=== PATIENT | female | born 1930 | race Caucasian/White ===

== ENCOUNTER 2016-12-07 08:34 | Emergency (ER) | payer MEDICARE, BC ==
[2016-12-07] MEDS ORDERED: SODIUM CHLORIDE 0.9% 1,000 ML IV ONE (09:04)
[2016-12-07] MEDS ORDERED: cloNIDine HCL 0.2 MG TAB PO STA (09:08)
--- NOTE | 2016-12-07 09:48 | ED ---
Fall HPI - General Chief Complaint: Fall Stated Complaint: Fall Time Seen by Provider: 12/07/16 08:54 Source: patient, EMS, RN notes reviewed, old records reviewed Mode of arrival: ambulatory - History of Present Illness Initial Comments: 86-year-old female presents emergency Department chief complaint of chronic body pain after a fall yesterday. Patient reports that at 3 in the morning she fell. She does have history of dementia and is a poor historian of the reason why she fell. Patient reports that her son then picked her up and put her back into bed. She states that she woke up with severe pain. She denies any chest pain or shortness of breath this time. She states that she feels weak. She denies any specific place that is related to the acute injuries. She states that there is total body pain. She does have a history of stroke and chronic right-sided weakness. - Related Data Home Medications Medication Instructions Recorded Confirmed Donepezil [Aricept] 10 mg PO DAILY 12/11/13 12/07/16 Levothyroxine Sodium [Levoxyl] 100 mcg PO DAILY 12/11/13 12/07/16 Pravastatin Sodium [Pravachol] 10 mg PO HS 12/11/13 12/07/16 Cholecalciferol [Vitamin D3] 1,000 unit PO DAILY 04/07/14 12/07/16 amLODIPine [Norvasc] 5 mg PO DAILY 03/22/15 12/07/16 Hydrochlorothiazide [Hydrodiuril] 12.5 mg PO DAILY 12/07/16 12/07/16 Oxybutynin Chloride [Ditropan XL] 5 mg PO DAILY 12/07/16 12/07/16 Previous Rx's Medication Instructions Recorded Acetaminophen-Codeine 300-30mg 1 tab PO Q6H PRN #12 tablet 12/07/16 [Tylenol #3] Allergies Allergy/AdvReac Type Severity Reaction Status Date / Time No Known Allergies Allergy Verified 12/07/16 10:27 Review of Systems ROS Statement: Those systems with pertinent positive or pertinent negative responses have been documented in the HPI. ROS Other: All systems not noted in ROS Statement are negative. Past Medical History Past Medical History: CVA/TIA, Dementia, Deep Vein Thrombosis (DVT), Hyperlipidemia, Hypertension, Pneumonia, Skin Disorder, Thyroid Disorder Additional Past Medical History / Comment(s): "memory problems" SINCE STROKE AND RT SIDE AFFECTED.DVT RT LEG History of Any Multi-Drug Resistant Organisms: None Reported Past Surgical History: Hysterectomy Past Anesthesia/Blood Transfusion Reactions: No Reported Reaction Past Psychological History: No Psychological Hx Reported Smoking Status: Former smoker Past Alcohol Use History: None Reported Past Drug Use History: None Reported - Past Family History Father Family Medical History: Unable to Obtain Mother Family Medical History: Unable to Obtain General Exam - General Exam Comments Initial Comments: 86-year-old female. Patient has a history of dementia. Limitations: altered mental status General appearance: alert, in no apparent distress Head exam: Present: atraumatic, normocephalic, normal inspection Eye exam: Present: normal appearance, PERRL, EOMI. Absent: scleral icterus, conjunctival injection, periorbital swelling ENT exam: Present: normal exam, mucous membranes moist Neck exam: Present: normal inspection. Absent: tenderness, meningismus, lymphadenopathy Respiratory exam: Present: normal lung sounds bilaterally. Absent: respiratory distress, wheezes, rales, rhonchi, stridor Cardiovascular Exam: Present: regular rate, normal rhythm, normal heart sounds. Absent: systolic murmur, diastolic murmur, rubs, gallop, clicks GI/Abdominal exam: Present: soft, normal bowel sounds. Absent: distended, tenderness, guarding, rebound, rigid Extremities exam: Present: other (Patient has diffuse upper and lower extremity tenderness. No evidence of deformities.) Back exam: Present: normal inspection Neurological exam: Present: alert, oriented X3, CN II-XII intact Psychiatric exam: Present: normal affect, normal mood Skin exam: Present: warm, dry, intact, normal color. Absent: rash Course Vital Signs 12/07/16 12/07/16 12/07/16 08:37 09:40 10:00 Temperature 98.5 F Pulse Rate 74 75 Respiratory 18 18 18 Rate Blood Pressure 215/87 204/86 O2 Sat by Pulse 95 95 Oximetry 12/07/16 12/07/16 12/07/16 10:37 11:48 13:21 Temperature 97 F L 97.6 F 97.1 F L Pulse Rate 91 66 61 Respiratory 18 20 18 Rate Blood Pressure 146/67 155/70 152/67 O2 Sat by Pulse 99 99 99 Oximetry Medical Decision Making - Medical Decision Making 86-year-old female presents emergency Department chief complaint of chronic body pain after a fall yesterday. Patient reports that at 3 in the morning she fell. She does have history of dementia and is a poor historian of the reason why she fell. Patient reports that her son then picked her up and put her back into bed. She states that she woke up with severe pain. She denies any chest pain or shortness of breath this time. She states that she feels weak. She denies any specific place that is related to the acute injuries. Patient has diffuse point tenderness over the entire body. Patient's son reports that she is hypersensitive after her stroke. There is no evidence of acute deformities. X-rays of the area is with or most tender such as shoulder and hips are negative for any acute process. Patient's son does report that she did ambulate and go to the bathroom after the fall this morning. Patient son reports that he will manage her pain at home. This time patient's laboratory results are negative for any acute process. Patient will be discharged with pain medication instructed to follow-up with primary care provider. A lengthy discussion with the son in regards to increasing care such as having visiting nurses come to eat in her healthcare. - Lab Data Result diagrams: 12/07/16 09:35 12/07/16 09:35 Lab Results 12/07/16 12/07/16 12/07/16 Range/Units 09:35 09:35 09:35 WBC 8.6 (3.8-10.6) k/uL RBC 4.25 (3.80-5.40) m/uL Hgb 12.9 (11.4-16.0) gm/dL Hct 37.6 (34.0-46.0) % MCV 88.6 (80.0-100.0) fL MCH 30.4 (25.0-35.0) pg MCHC 34.3 (31.0-37.0) g/dL RDW 14.8 (11.5-15.5) % Plt Count 206 (150-450) k/uL Neutrophils % 75 % Lymphocytes % 16 % Monocytes % 5 % Eosinophils % 3 % Basophils % 1 % Neutrophils # 6.5 (1.3-7.7) k/uL Lymphocytes # 1.3 (1.0-4.8) k/uL Monocytes # 0.5 (0-1.0) k/uL Eosinophils # 0.2 (0-0.7) k/uL Basophils # 0.1 (0-0.2) k/uL PT 10.3 (9.0-12.0) sec INR 1.0 (<1.1) APTT 24.0 (22.0-30.0) sec Sodium 140 (137-145) mmol/L Potassium 4.1 (3.5-5.1) mmol/L Chloride 106 (98-107) mmol/L Carbon Dioxide 26 (22-30) mmol/L Anion Gap 8 mmol/L BUN 21 H (7-17) mg/dL Creatinine 0.84 (0.52-1.04) mg/dL Est GFR (MDRD) Af Amer >60 (>60 ml/min/1.73 sqM) Est GFR (MDRD) Non-Af >60 (>60 ml/min/1.73 sqM) Glucose 102 H (74-99) mg/dL Calcium 9.4 (8.4-10.2) mg/dL Magnesium 2.1 (1.6-2.3) mg/dL Total Bilirubin 0.7 (0.2-1.3) mg/dL AST 21 (14-36) U/L ALT 21 (9-52) U/L Alkaline Phosphatase 62 (38-126) U/L Total Creatine Kinase (30-135) U/L CK-MB (CK-2) (0.0-2.4) ng/mL CK-MB (CK-2) Rel Index Troponin I (0.000-0.034) ng/mL NT-Pro-B Natriuret Pep pg/mL Total Protein 7.1 (6.3-8.2) g/dL Albumin 4.1 (3.5-5.0) g/dL Urine Color Urine Appearance (Clear) Urine pH (5.0-8.0) Ur Specific [place] (1.001-1.035) Urine Protein (Negative) Urine Glucose (UA) (Negative) Urine Ketones (Negative) Urine Blood (Negative) Urine Nitrite (Negative) Urine Bilirubin (Negative) Urine Urobilinogen (<2.0) mg/dL Ur Leukocyte Esterase (Negative) Urine RBC (0-5) /hpf Urine WBC (0-5) /hpf Ur Squamous Epith Cells (0-4) /hpf Urine Bacteria (None) /hpf Urine Mucus (None) /hpf 12/07/16 12/07/16 12/07/16 Range/Units 09:35 09:35 09:35 WBC (3.8-10.6) k/uL RBC (3.80-5.40) m/uL Hgb (11.4-16.0) gm/dL Hct (34.0-46.0) % MCV (80.0-100.0) fL MCH (25.0-35.0) pg MCHC (31.0-37.0) g/dL RDW (11.5-15.5) % Plt Count (150-450) k/uL Neutrophils % % Lymphocytes % % Monocytes % % Eosinophils % % Basophils % % Neutrophils # (1.3-7.7) k/uL Lymphocytes # (1.0-4.8) k/uL Monocytes # (0-1.0) k/uL Eosinophils # (0-0.7) k/uL Basophils # (0-0.2) k/uL PT (9.0-12.0) sec INR (<1.1) APTT (22.0-30.0) sec Sodium (137-145) mmol/L Potassium (3.5-5.1) mmol/L Chloride (98-107) mmol/L Carbon Dioxide (22-30) mmol/L Anion Gap mmol/L BUN (7-17) mg/dL Creatinine (0.52-1.04) mg/dL Est GFR (MDRD) Af Amer (>60 ml/min/1.73 sqM) Est GFR (MDRD) Non-Af (>60 ml/min/1.73 sqM) Glucose (74-99) mg/dL Calcium (8.4-10.2) mg/dL Magnesium (1.6-2.3) mg/dL Total Bilirubin (0.2-1.3) mg/dL AST (14-36) U/L ALT (9-52) U/L Alkaline Phosphatase (38-126) U/L Total Creatine Kinase 183 H (30-135) U/L CK-MB (CK-2) 1.4 (0.0-2.4) ng/mL CK-MB (CK-2) Rel Index 0.8 Troponin I 0.021 (0.000-0.034) ng/mL NT-Pro-B Natriuret Pep 739 pg/mL Total Protein (6.3-8.2) g/dL Albumin (3.5-5.0) g/dL Urine Color Light Yellow Urine Appearance Cloudy H (Clear) Urine pH 7.5 (5.0-8.0) Ur Specific [place] 1.006 (1.001-1.035) Urine Protein Negative (Negative) Urine Glucose (UA) Negative (Negative) Urine Ketones Negative (Negative) Urine Blood Negative (Negative) Urine Nitrite Negative (Negative) Urine Bilirubin Negative (Negative) Urine Urobilinogen <2.0 (<2.0) mg/dL Ur Leukocyte Esterase Trace H (Negative) Urine RBC 1 (0-5) /hpf Urine WBC 6 H (0-5) /hpf Ur Squamous Epith Cells 1 (0-4) /hpf Urine Bacteria Rare H (None) /hpf Urine Mucus Rare H (None) /hpf - Radiology Data Radiology results: report reviewed EKG shows sinus rhythm with 3 which or atrial boxes of bigeminy. Non-ST melena. Ventricular rates is a 9 bpm. [place] interval 124 ms. QRS ration 80 ms. QT QTc is 416 445 ms. No evidence of ST elevation or T-wave inversion. No evidence of atrial articular limits. Disposition Clinical Impression: Fall, Chronic pain Disposition: HOME SELF-CARE Condition: Good Instructions: Fall Prevention for Older Adults (ED) Additional Instructions: patient has a follow-up with your primary care provider. Take Motrin or Tylenol for pain. Apply heating pad over the areas that are discomforting. Return the emergency department if any alarming signs or symptoms occur. Prescriptions: Acetaminophen-Codeine 300-30mg [Tylenol #3] 1 tab PO Q6H PRN #12 tablet PRN Reason: Pain Referrals: Moe Hedrick MD [Primary Care Provider] - 1-2 days Time of Disposition: 12:52
[2016-12-07 09:55] LABS: Basophils # (A) 0.1 k/uL (0-0.2); Basophils % (A) 1 %; CHCM 34.1; Eosinophils # (A) 0.2 k/uL (0-0.7); Eosinophils % (A) 3 %; HCT 37.6 % (34.0-46.0); HDW 2.31; HGB 12.9 gm/dL (11.4-16.0); Luc % (Auto) 1; Lymphocytes # (A) 1.3 k/uL (1.0-4.8); Lymphocytes % (A) 16 %; MCH 30.4 pg (25.0-35.0); MCHC 34.3 g/dL (31.0-37.0); MCV 88.6 fL (80.0-100.0); Mean Platelet Volume 6.9; Monocytes # (A) 0.5 k/uL (0-1.0); Monocytes % (A) 5 %; Neutrophils # (A) 6.5 k/uL (1.3-7.7); Neutrophils % (A) 75 %; RBC 4.25 m/uL (3.80-5.40); RDW 14.8 % (11.5-15.5); WBC 8.6 k/uL (3.8-10.6); WBC (Perox) 8.34
[2016-12-07 09:59] LABS: Appearance,Urine Cloudy (Clear); Bacteria,Urine Rare /hpf; Bilirubin,Urine Negative (Negative); Glucose,Urine (UA) Negative (Negative); Ketones,Urine Negative (Negative); Leukocyte Esterase,Urine Trace (Negative); Mucus,Urine Rare /hpf; Nitrite,Urine Negative (Negative); PH, Urine 7.5 (5.0-8.0); Particle Count 1744; Protein,Urine Negative (Negative); RBC,Urine 1 /hpf (0-5); Specific Gravity,Urine 1.006 (1.001-1.035); Squamous Epithelial Cell,Urine 1 /hpf (0-4); UA Billing (MACRO vs. MICRO) MICRO; Urobilinogen,Urine <2.0 mg/dL (<2.0); WBC,Urine 6 /hpf (0-5)
[2016-12-07 10:03] LABS: ALT 21 U/L (9-52); AST 21 U/L (14-36); Alkaline Phosphatase 62 U/L (38-126); Anion Gap 8 mmol/L; Blood Urea Nitrogen 21 mg/dL (7-17); Calcium 9.4 mg/dL (8.4-10.2); Carbon Dioxide 26 mmol/L (22-30); Chloride 106 mmol/L (98-107); Glucose 102 mg/dL (74-99); Magnesium 2.1 mg/dL (1.6-2.3); Non-African American GFR(MDRD) >60 (>60 ml/min/1.73 sqM); Potassium 4.1 mmol/L (3.5-5.1); Sodium 140 mmol/L (137-145); Total Bilirubin 0.7 mg/dL (0.2-1.3); Total Protein 7.1 g/dL (6.3-8.2)
[2016-12-07 10:06] LABS: Prothrombin Time 10.3 sec (9.0-12.0)
[2016-12-07 10:31] LABS: Creatine Kinase MB 1.4 ng/mL (0.0-2.4); Troponin I 0.021 ng/mL (0.000-0.034)
--- NOTE | 2016-12-07 10:37 | XR ---
EXAMINATION TYPE: XR chest 2V DATE OF EXAM: 12/07/2016 HISTORY: fall. REFERENCE: Previous study dated 05/09/2016. FINDINGS: The lungs are overinflated. The heart is enlarged. There is unfolding and ectasia of the th oracic aorta. The lungs are clear. Pleural spaces are clear. There is a stable wedge compression frac ture of what is believed to represent the T9 vertebral body. There is a intra-articular loose body in volving the right shoulder. IMPRESSION: 1. COPD 2. CARDIOMEGALY. 3. WEDGE COMPRESSION FRACTURE OF T9 WHICH IS STABLE. 4. OSSEOUS LOOSE BODY WITHIN THE RIGHT GLENOHUMERAL JOINT.
--- NOTE | 2016-12-07 10:38 | CT ---
EXAMINATION TYPE: CT brain wo con DATE OF EXAM: 12/07/2016 COMPARISON: NONE HISTORY: Fall CT DLP: 882.[address] of the brain was performed. The ventricles, basal cisterns and sulci overlying the cerebral convexities demonstrate moderate enla rgement. Remote insults of the left basal ganglia and left external capsule. There is no evidence for intracranial hemorrhage or sulcal effacement. There is decreased attenuation about the periventricular white matter and deep white matter of both c erebral hemispheres, compatible with chronic small vessel ischemia. Differential diagnosis does inclu de demyelination. 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 No midline shift. Osseous calvarium is intact. If symptoms persist consider MRI. IMPRESSION: 1. Age related atrophic and chronic small vessel ischemic change without acute intracranial process s een at this time.
--- NOTE | 2016-12-07 10:40 | XR ---
EXAMINATION TYPE: XR Hip Bilateral and AP pelvis , 6 VIEWS DATE OF EXAM ORDERED: 12/07/2016 HISTORY: Pain. COMPARISON: None. FINDINGS: There are varus deformities of the hips bilaterally worse on the left than the right. Ther e is mild degenerative change within the hip joints bilaterally. There is some sclerosis of the femor al heads. No definite collapse of the femoral heads are seen. No osseous lesion about the pelvis is i dentified. There are degenerative changes within the spine. IMPRESSION: 1. NO ACUTE OSSEOUS LESION. 2. VARUS DEFORMITIES OF BOTH HIPS GREATER ON THE LEFT THAN THE RIGHT. 3. MILD DEGENERATIVE CHANGE IN THE HIPS AND SPINE.
[2016-12-07 13:22] VITALS: BP 152/67; PULSE 61; RESP 18; TEMP 97.1
== END 2016-12-07 13:23 | disposition home or self-care (01) ==
LOC: EC 08:34
DX: G89.29 Other chronic pain (principal); R52 Pain, unspecified; I10 Essential (primary) hypertension; F03.90 Unspecified dementia, unspecified severity, without behavioral disturbance, psychotic disturbance, mood disturbance, and anxiety; E78.5 Hyperlipidemia, unspecified; E07.9 Disorder of thyroid, unspecified; Z87.891 Personal history of nicotine dependence; Z86.73 Personal history of transient ischemic attack (TIA), and cerebral infarction without residual deficits; Z86.718 Personal history of other venous thrombosis and embolism; Z79.899 Other long term (current) drug therapy; W06.XXXA Fall from bed, initial encounter; Y92.009 Unspecified place in unspecified non-institutional (private) residence as the place of occurrence of the external cause
CPT/HCPCS: 36415; 70450; 71020; 73521; 80053; 81001; 82550; 82553; 83735; 83880; 84484; 85025; 85610; 85730; 93005; 96360; 99285

== ENCOUNTER 2017-01-09 10:34 | Emergency (ER) | payer MEDICARE, BC ==
[2017-01-09 10:46] VITALS: TEMP 97.9
[2017-01-09] MEDS ORDERED: SODIUM CHLORIDE 0.9% 500 ML IV STA (10:58)
[2017-01-09] MEDS ORDERED: RX INFO: IV CONTRAST WAS GIVEN 1 EACH MISC MISCELLANE PRN (10:58)
[2017-01-09 11:54] LABS: Appearance,Urine Clear (Clear); Basophils # (A) 0.1 k/uL (0-0.2); Basophils % (A) 1 %; Bilirubin,Urine Negative (Negative); CH 29.7; CHCM 33.4; Eosinophils # (A) 0.2 k/uL (0-0.7); Eosinophils % (A) 3 %; Glucose,Urine (UA) Negative (Negative); HCT 36.6 % (34.0-46.0); HDW 2.42; HGB 12.4 gm/dL (11.4-16.0); Ketones,Urine Negative (Negative); Leukocyte Esterase,Urine Negative (Negative); Luc # (Auto) 0.13; Luc % (Auto) 2; Lymphocytes # (A) 1.1 k/uL (1.0-4.8); Lymphocytes % (A) 13 %; MCH 30.2 pg (25.0-35.0); MCHC 33.8 g/dL (31.0-37.0); MCV 89.4 fL (80.0-100.0); Mean Platelet Volume 7.2; Monocytes # (A) 0.4 k/uL (0-1.0); Monocytes % (A) 5 %; Neutrophils # (A) 6.7 k/uL (1.3-7.7); Neutrophils % (A) 77 %; Nitrite,Urine Negative (Negative); PH, Urine 7.5 (5.0-8.0); Protein,Urine Negative (Negative); RBC 4.09 m/uL (3.80-5.40); RDW 14.6 % (11.5-15.5); Specific Gravity,Urine 1.005 (1.001-1.035); UA Billing (MACRO vs. MICRO) CHEM; Urobilinogen,Urine <2.0 mg/dL (<2.0); WBC 8.6 k/uL (3.8-10.6); WBC (Perox) 9.19
[2017-01-09 11:57] VITALS: RESP 16
[2017-01-09 12:04] LABS: ALT 30 U/L (9-52); AST 24 U/L (14-36); Alkaline Phosphatase 56 U/L (38-126); Anion Gap 9 mmol/L; Blood Urea Nitrogen 17 mg/dL (7-17); Calcium 9.2 mg/dL (8.4-10.2); Carbon Dioxide 24 mmol/L (22-30); Chloride 107 mmol/L (98-107); Glucose 93 mg/dL (74-99); Non-African American GFR(MDRD) >60 (>60 ml/min/1.73 sqM); Sodium 140 mmol/L (137-145); Total Bilirubin 0.4 mg/dL (0.2-1.3); Total Protein 6.7 g/dL (6.3-8.2)
--- NOTE | 2017-01-09 12:51 | CT ---
EXAMINATION TYPE: CT abdomen pelvis w con DATE OF EXAM: 01/09/2017 COMPARISON: 05/09/2016 HISTORY: diarrhea CT DLP: 1178 mGycm Automated exposure control for dose reduction was used. CONTRAST: CT scan of the abdomen pelvis is performed with IV Contrast, patient injected with 100 mL of Omnipaqu e 300. FINDINGS- LUNG BASES-linear changes involving the lung bases suggestive of scar or atelectasis is a punctate 3 mm nodule within the right lower lobe. The heart is enlarged. LIVER/GB- No gross abnormality is appreciated. PANCREAS- No gross abnormality is seen. SPLEEN- No gross abnormality is seen. ADRENALS- No gross abnormality is seen. KIDNEYS/BLADDER- no hydronephrosis or nephrolithiasis. 2 small hypodensities within the kidney are to o small to characterize but stable from the previous exam and likely related to tiny cysts. BOWEL-there is a large hiatal hernia. LYMPH NODES- No greater than 1cm abdominal or pelvic lymph nodes areappreciated. OSSEOUS STRUCTURES-degenerative changes of the spine noted. Curvature noted. Arthropathy of the hips. Previous surgery involving the lumbar spine. OTHER- no free fluid. Mild wall thickening of the distal colon may represent a mild colitis. Irregul ar atherosclerotic changes of the aorta are noted with no evidence of definite aneurysm. The heart is enlarged. IMPRESSION- 1. Mild wall thickening distal colon correlate for mild colitis. No inflammatory changes. 2. Large hiatal hernia 3. Cardiomegaly
[2017-01-09 13:13] VITALS: BP 166/87; PULSE 76
--- NOTE | 2017-01-09 13:37 | ED ---
General Adult HPI - General Chief complaint: Nausea/Vomiting/Diarrhea Stated complaint: Diarrhea Time Seen by Provider: 01/09/17 10:36 Source: patient, family, EMS, RN notes reviewed Mode of arrival: EMS Limitations: no limitations - History of Present Illness Initial comments: 86-year-old female past medical history of hypertension, hypothyroidism, and dementia presents with 8 episodes of loose diarrhea over the past 12-24 hours. Patient denies any blood. States her stool is somewhat formed, not watery. No nausea vomiting. No abdominal pain. No chest pain or shortness of breath. No recent change in medications. No known exposure, no history of recent antibiotics. - Related Data Home Medications Medication Instructions Recorded Confirmed Donepezil [Aricept] 10 mg PO DAILY 12/11/13 01/09/17 Levothyroxine Sodium [Levoxyl] 100 mcg PO DAILY 12/11/13 01/09/17 Pravastatin Sodium [Pravachol] 10 mg PO HS 12/11/13 01/09/17 Cholecalciferol [Vitamin D3] 1,000 unit PO DAILY 04/07/14 01/09/17 amLODIPine [Norvasc] 5 mg PO DAILY 03/22/15 01/09/17 Hydrochlorothiazide [Hydrodiuril] 12.5 mg PO DAILY 12/07/16 01/09/17 Oxybutynin Chloride [Ditropan XL] 5 mg PO DAILY 12/07/16 01/09/17 Allergies Allergy/AdvReac Type Severity Reaction Status Date / Time No Known Allergies Allergy Verified 01/09/17 12:01 Review of Systems ROS Statement: Those systems with pertinent positive or pertinent negative responses have been documented in the HPI. ROS Other: All systems not noted in ROS Statement are negative. Past Medical History Past Medical History: CVA/TIA, Dementia, Deep Vein Thrombosis (DVT), Hyperlipidemia, Hypertension, Pneumonia, Skin Disorder, Thyroid Disorder Additional Past Medical History / Comment(s): "memory problems" SINCE STROKE AND RT SIDE AFFECTED.DVT RT LEG History of Any Multi-Drug Resistant Organisms: None Reported Past Surgical History: Hysterectomy Past Anesthesia/Blood Transfusion Reactions: No Reported Reaction Past Psychological History: No Psychological Hx Reported Smoking Status: Former smoker Past Alcohol Use History: None Reported Past Drug Use History: None Reported - Past Family History Father Family Medical History: Unable to Obtain Mother Family Medical History: Unable to Obtain General Exam Limitations: no limitations General appearance: alert, in no apparent distress Head exam: Present: atraumatic, normocephalic Eye exam: Present: normal appearance, PERRL ENT exam: Present: normal exam, mucous membranes moist Neck exam: Present: normal inspection. Absent: tenderness, meningismus Respiratory exam: Present: normal lung sounds bilaterally, respiratory distress Cardiovascular Exam: Present: regular rate, normal rhythm GI/Abdominal exam: Present: soft, tenderness (Mild generalized tenderness to palpation). Absent: distended, guarding, rebound Extremities exam: Present: normal inspection, normal capillary refill. Absent: pedal edema Neurological exam: Present: alert, oriented X3, CN II-XII intact. Absent: motor sensory deficit Psychiatric exam: Present: normal affect, normal mood Skin exam: Present: warm, dry. Absent: cyanosis, diaphoretic Course Vital Signs 01/09/17 01/09/17 01/09/17 10:43 11:52 13:12 Temperature 97.9 F Pulse Rate 70 74 76 Respiratory 18 16 16 Rate Blood Pressure 190/79 170/74 166/87 O2 Sat by Pulse 98 99 99 Oximetry - Reevaluation(s) Reevaluation #1: Patient has no episodes of diarrhea while in the emergency department. 01/09/17 14:13 Medical Decision Making - Medical Decision Making 86 yo female presenting with nonbloody diarrhea over the past 24 hours. Exam does reveal some generalized tenderness to palpation the abdomen. CT is obtained shows colitis. No focal infection, laboratory studies including CBC, CMP, and urinalysis is unremarkable. Patient has had no diarrhea while in the emergency department. He will be discharged home with instructions to follow up with primary care physician or return to the emergency department with worsening symptoms. Diagnosis: Diarrhea, colitis - Lab Data Result diagrams: 01/09/17 11:36 01/09/17 11:36 Lab Results 01/09/17 01/09/17 01/09/17 Range/Units 11:36 11:36 11:36 WBC 8.6 (3.8-10.6) k/uL RBC 4.09 (3.80-5.40) m/uL Hgb 12.4 (11.4-16.0) gm/dL Hct 36.6 (34.0-46.0) % MCV 89.4 (80.0-100.0) fL MCH 30.2 (25.0-35.0) pg MCHC 33.8 (31.0-37.0) g/dL RDW 14.6 (11.5-15.5) % Plt Count 210 (150-450) k/uL Neutrophils % 77 % Lymphocytes % 13 % Monocytes % 5 % Eosinophils % 3 % Basophils % 1 % Neutrophils # 6.7 (1.3-7.7) k/uL Lymphocytes # 1.1 (1.0-4.8) k/uL Monocytes # 0.4 (0-1.0) k/uL Eosinophils # 0.2 (0-0.7) k/uL Basophils # 0.1 (0-0.2) k/uL Sodium 140 (137-145) mmol/L Potassium 4.0 (3.5-5.1) mmol/L Chloride 107 (98-107) mmol/L Carbon Dioxide 24 (22-30) mmol/L Anion Gap 9 mmol/L BUN 17 (7-17) mg/dL Creatinine 0.83 (0.52-1.04) mg/dL Est GFR (MDRD) Af Amer >60 (>60 ml/min/1.73 sqM) Est GFR (MDRD) Non-Af >60 (>60 ml/min/1.73 sqM) Glucose 93 (74-99) mg/dL Calcium 9.2 (8.4-10.2) mg/dL Magnesium 2.0 (1.6-2.3) mg/dL Total Bilirubin 0.4 (0.2-1.3) mg/dL AST 24 (14-36) U/L ALT 30 (9-52) U/L Alkaline Phosphatase 56 (38-126) U/L Total Protein 6.7 (6.3-8.2) g/dL Albumin 3.9 (3.5-5.0) g/dL Lipase 129 (23-300) U/L Urine Color Light Yellow Urine Appearance Clear (Clear) Urine pH 7.5 (5.0-8.0) Ur Specific [place] 1.005 (1.001-1.035) Urine Protein Negative (Negative) Urine Glucose (UA) Negative (Negative) Urine Ketones Negative (Negative) Urine Blood Negative (Negative) Urine Nitrite Negative (Negative) Urine Bilirubin Negative (Negative) Urine Urobilinogen <2.0 (<2.0) mg/dL Ur Leukocyte Esterase Negative (Negative) Disposition Clinical Impression: Colitis Disposition: HOME SELF-CARE Condition: Good Instructions: Colitis (ED) Referrals: Moe Hedrick MD [Primary Care Provider] - 1-2 days Time of Disposition: 13:37
== END 2017-01-09 13:46 | disposition home or self-care (01) ==
LOC: EC 10:34
DX: K52.9 Noninfective gastroenteritis and colitis, unspecified (principal); E07.9 Disorder of thyroid, unspecified; I10 Essential (primary) hypertension; F03.90 Unspecified dementia, unspecified severity, without behavioral disturbance, psychotic disturbance, mood disturbance, and anxiety; E78.5 Hyperlipidemia, unspecified; Z87.891 Personal history of nicotine dependence; Z79.899 Other long term (current) drug therapy
CPT/HCPCS: 36415; 80053; 83690; 83735; 85025; 81003; 74177; 99285; 96360; Q9967

== ENCOUNTER 2017-04-05 12:17 | Observation (INO) | payer MEDICARE, BC ==
[2017-04-05] MEDS ORDERED: MORPHINE SULFATE 10 MG/ML SYRINGE IV STA (12:52)
[2017-04-05 13:02] LABS: Basophils % (A) 1 %; CH 29.5; CHCM 32.4; Eosinophils # (A) 0.2 k/uL (0-0.7); Eosinophils % (A) 2 %; HCT 37.6 % (34.0-46.0); HDW 2.27; Luc # (Auto) 0.08; Luc % (Auto) 1; Lymphocytes # (A) 1.1 k/uL (1.0-4.8); Lymphocytes % (A) 14 %; MCH 29.1 pg (25.0-35.0); MCHC 31.9 g/dL (31.0-37.0); MCV 91.4 fL (80.0-100.0); Mean Platelet Volume 7.2; Monocytes # (A) 0.3 k/uL (0-1.0); Monocytes % (A) 4 %; Neutrophils % (A) 78 %; RBC 4.11 m/uL (3.80-5.40); RDW 15.2 % (11.5-15.5); WBC 7.7 k/uL (3.8-10.6); WBC (Perox) 8.36
[2017-04-05 13:12] LABS: ALT 22 U/L (9-52); AST 20 U/L (14-36); Alkaline Phosphatase 63 U/L (38-126); Anion Gap 9 mmol/L; Blood Urea Nitrogen 21 mg/dL (7-17); Calcium 9.1 mg/dL (8.4-10.2); Carbon Dioxide 24 mmol/L (22-30); Chloride 107 mmol/L (98-107); Glucose 91 mg/dL (74-99); Magnesium 2.1 mg/dL (1.6-2.3); Non-African American GFR(MDRD) 59 (>60 ml/min/1.73 sqM); Phosphorus 3.2 mg/dL (2.5-4.5); Potassium 3.9 mmol/L (3.5-5.1); Sodium 140 mmol/L (137-145); Total Bilirubin 0.3 mg/dL (0.2-1.3); Total Protein 6.5 g/dL (6.3-8.2)
--- NOTE | 2017-04-05 13:13 | ED ---
General Adult HPI - General Chief complaint: Dizziness Stated complaint: dizziness Time Seen by Provider: 04/05/17 12:24 Source: patient, EMS, RN notes reviewed, old records reviewed Mode of arrival: EMS Limitations: no limitations - History of Present Illness Initial comments: This is a 86-year-old female to the ER for evaluation of weakness dizziness and shortness of breath and chest pain. Patient has a complex medical history including prior stroke, heart failure. Patient's lives alone and presents with her daughter today for evaluation per patient awoke today with dizziness feeling lightheaded and occasional room spinning when she woke this morning. Patient states she was able to ambulate without significant difficulty she did complain of shortness of breath. Patient states she is getting bilateral lower 70 swallowing. She has been taking all medications as prescribed. No fevers cough congestion, - Related Data Home Medications Medication Instructions Recorded Confirmed Donepezil [Aricept] 10 mg PO DAILY 12/11/13 04/05/17 Levothyroxine Sodium [Levoxyl] 100 mcg PO DAILY 12/11/13 04/05/17 Pravastatin Sodium [Pravachol] 10 mg PO HS 12/11/13 04/05/17 Cholecalciferol [Vitamin D3] 1,000 unit PO DAILY 04/07/14 04/05/17 amLODIPine [Norvasc] 5 mg PO DAILY 03/22/15 04/05/17 Oxybutynin Chloride [Ditropan XL] 5 mg PO DAILY 12/07/16 04/05/17 Allergies Allergy/AdvReac Type Severity Reaction Status Date / Time No Known Allergies Allergy Verified 04/05/17 13:03 Review of Systems ROS Statement: Those systems with pertinent positive or pertinent negative responses have been documented in the HPI. ROS Other: All systems not noted in ROS Statement are negative. Past Medical History Past Medical History: CVA/TIA, Dementia, Deep Vein Thrombosis (DVT), Hyperlipidemia, Hypertension, Pneumonia, Skin Disorder, Thyroid Disorder Additional Past Medical History / Comment(s): "memory problems" SINCE STROKE AND RT SIDE AFFECTED.DVT RT LEG History of Any Multi-Drug Resistant Organisms: None Reported Past Surgical History: Hysterectomy Past Anesthesia/Blood Transfusion Reactions: No Reported Reaction Past Psychological History: No Psychological Hx Reported Smoking Status: Former smoker Past Alcohol Use History: None Reported Past Drug Use History: None Reported - Past Family History Father Family Medical History: Unable to Obtain Mother Family Medical History: Unable to Obtain General Exam Limitations: no limitations General appearance: alert, in no apparent distress Head exam: Present: atraumatic, normocephalic, normal inspection Eye exam: Present: normal appearance, PERRL, EOMI. Absent: scleral icterus, conjunctival injection, periorbital swelling ENT exam: Present: normal exam, mucous membranes moist Neck exam: Present: normal inspection. Absent: tenderness, meningismus, lymphadenopathy Respiratory exam: Present: normal lung sounds bilaterally. Absent: respiratory distress, wheezes, rales, rhonchi, stridor Cardiovascular Exam: Present: regular rate, normal rhythm, normal heart sounds. Absent: systolic murmur, diastolic murmur, rubs, gallop, clicks GI/Abdominal exam: Present: soft, normal bowel sounds. Absent: distended, tenderness, guarding, rebound, rigid Extremities exam: Present: normal inspection, full ROM, normal capillary refill , other (Bilateral lower extremity edema). Absent: tenderness, pedal edema, joint swelling, calf tenderness Back exam: Present: normal inspection Neurological exam: Present: alert, oriented X3, CN II-XII intact Psychiatric exam: Present: normal affect, normal mood Skin exam: Present: warm, dry, intact, normal color. Absent: rash Course Vital Signs 04/05/17 04/05/17 12:18 13:46 Temperature 98.2 F Pulse Rate 62 79 Respiratory 18 19 Rate Blood Pressure 183/86 190/82 O2 Sat by Pulse 97 100 Oximetry - Reevaluation(s) Reevaluation #1: 04/05/17 14:15 Patient continues to feel weak with pain. Chest pain or shortness of breath, patient also complains of dizziness Medical Decision Making - Medical Decision Making 86-year-old ER for evaluation regarding shortness of breath. Severe shortness of breath especially with exertion and chest pain. Patient will be admitted for cardiac observation - Lab Data Result diagrams: 04/05/17 12:35 04/05/17 12:35 Lab Results 04/05/17 04/05/17 04/05/17 Range/Units 12:35 12:35 12:35 WBC 7.7 (3.8-10.6) k/uL RBC 4.11 (3.80-5.40) m/uL Hgb 12.0 (11.4-16.0) gm/dL Hct 37.6 (34.0-46.0) % MCV 91.4 (80.0-100.0) fL MCH 29.1 (25.0-35.0) pg MCHC 31.9 (31.0-37.0) g/dL RDW 15.2 (11.5-15.5) % Plt Count 198 (150-450) k/uL Neutrophils % 78 % Lymphocytes % 14 % Monocytes % 4 % Eosinophils % 2 % Basophils % 1 % Neutrophils # 6.0 (1.3-7.7) k/uL Lymphocytes # 1.1 (1.0-4.8) k/uL Monocytes # 0.3 (0-1.0) k/uL Eosinophils # 0.2 (0-0.7) k/uL Basophils # 0.0 (0-0.2) k/uL PT (9.0-12.0) sec INR (<1.2) APTT (22.0-30.0) sec Sodium 140 (137-145) mmol/L Potassium 3.9 (3.5-5.1) mmol/L Chloride 107 (98-107) mmol/L Carbon Dioxide 24 (22-30) mmol/L Anion Gap 9 mmol/L BUN 21 H (7-17) mg/dL Creatinine 0.90 (0.52-1.04) mg/dL Est GFR (MDRD) Af Amer >60 (>60 ml/min/1.73 sqM) Est GFR (MDRD) Non-Af 59 (>60 ml/min/1.73 sqM) Glucose 91 (74-99) mg/dL Calcium 9.1 (8.4-10.2) mg/dL Phosphorus 3.2 (2.5-4.5) mg/dL Magnesium 2.1 (1.6-2.3) mg/dL Total Bilirubin 0.3 (0.2-1.3) mg/dL AST 20 (14-36) U/L ALT 22 (9-52) U/L Alkaline Phosphatase 63 (38-126) U/L Total Creatine Kinase 117 (30-135) U/L CK-MB (CK-2) 0.9 (0.0-2.4) ng/mL CK-MB (CK-2) Rel Index 0.8 Troponin I <0.012 (0.000-0.034) ng/mL NT-Pro-B Natriuret Pep pg/mL Total Protein 6.5 (6.3-8.2) g/dL Albumin 3.7 (3.5-5.0) g/dL Urine Color Urine Appearance (Clear) Urine pH (5.0-8.0) Ur Specific [place] (1.001-1.035) Urine Protein (Negative) Urine Glucose (UA) (Negative) Urine Ketones (Negative) Urine Blood (Negative) Urine Nitrite (Negative) Urine Bilirubin (Negative) Urine Urobilinogen (<2.0) mg/dL Ur Leukocyte Esterase (Negative) 04/05/17 04/05/17 04/05/17 Range/Units 12:35 12:35 13:05 WBC (3.8-10.6) k/uL RBC (3.80-5.40) m/uL Hgb (11.4-16.0) gm/dL Hct (34.0-46.0) % MCV (80.0-100.0) fL MCH (25.0-35.0) pg MCHC (31.0-37.0) g/dL RDW (11.5-15.5) % Plt Count (150-450) k/uL Neutrophils % % Lymphocytes % % Monocytes % % Eosinophils % % Basophils % % Neutrophils # (1.3-7.7) k/uL Lymphocytes # (1.0-4.8) k/uL Monocytes # (0-1.0) k/uL Eosinophils # (0-0.7) k/uL Basophils # (0-0.2) k/uL PT 10.6 (9.0-12.0) sec INR 1.0 (<1.2) APTT 23.0 (22.0-30.0) sec Sodium (137-145) mmol/L Potassium (3.5-5.1) mmol/L Chloride (98-107) mmol/L Carbon Dioxide (22-30) mmol/L Anion Gap mmol/L BUN (7-17) mg/dL Creatinine (0.52-1.04) mg/dL Est GFR (MDRD) Af Amer (>60 ml/min/1.73 sqM) Est GFR (MDRD) Non-Af (>60 ml/min/1.73 sqM) Glucose (74-99) mg/dL Calcium (8.4-10.2) mg/dL Phosphorus (2.5-4.5) mg/dL Magnesium (1.6-2.3) mg/dL Total Bilirubin (0.2-1.3) mg/dL AST (14-36) U/L ALT (9-52) U/L Alkaline Phosphatase (38-126) U/L Total Creatine Kinase (30-135) U/L CK-MB (CK-2) (0.0-2.4) ng/mL CK-MB (CK-2) Rel Index Troponin I (0.000-0.034) ng/mL NT-Pro-B Natriuret Pep 683 pg/mL Total Protein (6.3-8.2) g/dL Albumin (3.5-5.0) g/dL Urine Color Light Yellow Urine Appearance Clear (Clear) Urine pH 7.0 (5.0-8.0) Ur Specific [place] 1.011 (1.001-1.035) Urine Protein Negative (Negative) Urine Glucose (UA) Negative (Negative) Urine Ketones 1+ H (Negative) Urine Blood Negative (Negative) Urine Nitrite Negative (Negative) Urine Bilirubin Negative (Negative) Urine Urobilinogen <2.0 (<2.0) mg/dL Ur Leukocyte Esterase Negative (Negative) - Radiology Data Radiology results: report reviewed (Chest x-rays negative for acute disease, CT brain negative for acute disease, CTA chest is pending), image reviewed Disposition Clinical Impression: CHF (congestive heart failure), Chest pain Disposition: ADMITTED IP TO THIS HOSP Condition: Fair Referrals: Moe Hedrick MD [Primary Care Provider] - 1-2 days
[2017-04-05 13:17] LABS: Prothrombin Time 10.6 sec (9.0-12.0)
[2017-04-05 13:21] LABS: Creatine Kinase 117 U/L (30-135)
--- NOTE | 2017-04-05 13:30 | CT ---
EXAMINATION TYPE: CT brain wo con DATE OF EXAM: 04/05/2017 COMPARISON: Prior CT brain 12/07/2016 HISTORY: Dizziness CT DLP: 898.8 mGycm Automated exposure control for dose reduction was used. Helical imaging through the brain FINDINGS: Large calcified mass extending from the inner table at the convexity on the right is again noted josh ures approximately 2.3 cm similar to prior exam. There is cortical atrophy. White matter demyelinatio n is again seen. Ventricles are again noted to be asymmetric, there is likely ex vacuo phenomenon due to prior infarct in the internal capsule, periventricular white matter on the left. There is no hemo rrhage. Cerebral vascular calcifications are again seen. IMPRESSION: FINDINGS ARE SIMILAR TO PRIOR EXAM, NO DEFINITE ACUTE ABNORMALITY. MRI MAY BE OF BENEFIT. PROBABLE ME NINGIOMA DESCRIBED. CHRONIC SMALL VESSEL ISCHEMIA, AGE RELATED ATROPHY.
[2017-04-05 13:31] LABS: Appearance,Urine Clear (Clear); Bilirubin,Urine Negative (Negative); Glucose,Urine (UA) Negative (Negative); Ketones,Urine 1+ (Negative); Leukocyte Esterase,Urine Negative (Negative); Nitrite,Urine Negative (Negative); Protein,Urine Negative (Negative); Specific Gravity,Urine 1.011 (1.001-1.035); UA Billing (MACRO vs. MICRO) CHEM; Urobilinogen,Urine <2.0 mg/dL (<2.0)
[2017-04-05 13:33] LABS: Creatine Kinase MB 0.9 ng/mL (0.0-2.4); Troponin I <0.012 ng/mL (0.000-0.034)
--- NOTE | 2017-04-05 13:40 | XR ---
EXAMINATION TYPE: XR chest 2V DATE OF EXAM: 04/05/2017 COMPARISON: Chest x-ray December 07, 2016. HISTORY: Assess. TECHNIQUE: Frontal and lateral views of the chest are obtained. FINDINGS: There is chronic emphysematous change without suspicious focal air space opacity, pleural effusion, or pneumothorax seen. The cardiac silhouette size remains enlarged with atherosclerotic th oracic aorta redemonstrated. Osseous structures are demineralized. There is moderate to severe compre ssion type fracture deformity at roughly T10 level redemonstrated. Osseous loose bodies right glenohu meral joint are redemonstrated. IMPRESSION: Chronic changes and cardiomegaly without acute pulmonary process. No significant change from prior.
[2017-04-05] MEDS ORDERED: ASPIRIN 81 MG PO STA (14:13)
[2017-04-05] MEDS ORDERED: NITROGLYCERIN SL TABS 0.4 MG TAB SUBLINGUAL PRN (14:13)
[2017-04-05] MEDS ORDERED: RX INFO: IV CONTRAST WAS GIVEN 1 EACH MISC MISCELLANE PRN (14:13)
[2017-04-05] MEDS ORDERED: MORPHINE SULFATE 10 MG/ML SYRINGE IV PRN (14:13)
[2017-04-05] MEDS ORDERED: FUROSEMIDE 10 MG/ML 4 ML VIAL IV STA (14:14)
--- NOTE | 2017-04-05 15:14 | CT ---
EXAMINATION TYPE: CT angio chest DATE OF EXAM: 04/05/2017 COMPARISON: Chest x-ray from earlier today and older studies. HISTORY: Dizziness, new onset A-fib. CT DLP: 219.50 mGycm. Automated Exposure Control for Dose Reduction was Utilized. CONTRAST: CTA scan of the thorax is performed with IV Contrast, patient injected with 67 mL of Visipaque 320, p ulmonary embolism protocol. MIP Images are created on CT scanner and reviewed. FINDINGS: LUNGS: Mild underlying emphysematous change is felt present. There is mild bibasilar linear scarring and/or atelectasis. There is no suspicious focal consolidation or groundglass opacity. There is no si gnificant pleural effusion or pneumothorax seen bilaterally. No concerning parenchymal nodule or mass is identified. MEDIASTINUM: There is satisfactory enhancement of the pulmonary artery and its branches, there is no CT evidence for pulmonary embolism. There are no greater than 1 cm hilar or mediastinal lymph nodes . There is tiny pericardial effusion inferiorly. Mild cardiomegaly is present. Left atrium is not jordan piciously enlarged. Main pulmonary artery measures 2.3 cm in diameter. Adjacent ascending aorta measu res 3.0 cm diameter on axial image 69. There is mild to moderate calcified plaque in descending thora cic aorta with slightly more prominent plaque in the abdominal aorta extending into branch vessels. T here is densely calcified plaque at bilateral renal artery origins noted. There is fairly moderate si ze hiatal hernia seen. This is not significantly changed in size from January 09, [address] Th ere is severe three-vessel coronary artery calcification which is noted marker for coronary artery di sease. OTHER: High dense material in bowel loops could reflect ingested contrast [facility] There is dense fibroglandular tissue noted in both breasts. Osseous structures are dem ineralized. There is advanced compression type fracture at T10 level redemonstrated. This has been pr esent on older radiographs. Advanced degenerative change of bilateral lateral glenohumeral joints is noted. IMPRESSION: No CT evidence for pulmonary embolism. No suspicious acute pulmonary process. Severe thre e-vessel coronary artery calcification noted. Other findings as noted above.
[2017-04-05] MEDS ORDERED: LABETALOL 5 MG/ML VIAL MDV IVP STA (15:20)
[2017-04-05 19:30] LABS: Creatine Kinase 117 U/L (30-135)
[2017-04-05 19:43] LABS: Creatine Kinase MB 1.1 ng/mL (0.0-2.4); Troponin I <0.012 ng/mL (0.000-0.034)
[2017-04-05] MEDS: PRAVASTATIN SODIUM 20 MG TAB PO SCH (20:01)
[2017-04-05] MEDS ORDERED: ONDANSETRON 4 MG/2 ML VIAL IVP PRN (22:16)
[2017-04-06 01:28] LABS: Creatine Kinase 120 U/L (30-135)
[2017-04-06 01:41] LABS: Creatine Kinase MB 1.1 ng/mL (0.0-2.4); Troponin I <0.012 ng/mL (0.000-0.034)
[2017-04-06] MEDS: LEVOTHYROXINE 100 MCG TAB PO SCH (05:45)
[2017-04-06 06:50] LABS: Cholesterol 178 mg/dL (<200); HDL Cholesterol 81 mg/dL (40-60)
[2017-04-06] MEDS ORDERED: amLODIPine 5 MG TAB PO SCH (09:00)
[2017-04-06] MEDS ORDERED: ASPIRIN 325 MG TAB PO SCH (09:00)
[2017-04-06] MEDS ORDERED: LISINOPRIL 5 MG TAB PO SCH (09:45)
[2017-04-06] MEDS: OXYBUTYNIN 10 MG TAB.ER.24 PO SCH (10:21)
[2017-04-06] MEDS: DONEPEZIL 10 MG TAB PO SCH (10:21)
[2017-04-06] MEDS: CHOLECALCIFEROL 1,000 UNIT TAB PO SCH (10:21)
[2017-04-06] MEDS: HYDROCHLOROTHIAZIDE 12.5 MG CAP PO SCH (10:21)
[2017-04-06] MEDS: ACETAMINOPHEN TAB 325 MG TAB PO PRN ×2 (11:17→20:07)
--- NOTE | 2017-04-06 11:41 | CONS ---
CONSULTATION Mrs. Grace is an 86-year-old female who presented to the emergency room with symptoms of dizziness. According to the ER note, the patient had some chest discomfort, although with asking the patient multiple times, she denies any chest discomfort. She denies any prior cardiac history. Her main concern is the dizziness and fatigue. Patient had a prior history of stroke about 7 years ago. She was feeling lightheaded with no associated palpitation and no chest discomfort. She uses her walker with ambulation, but she has symptoms of fatigue. She has no clear PND, orthopnea, or peripheral edema. She has no documented history of ischemic heart disease. Her CT scan that was done in the emergency room yesterday showed calcification of the coronary arteries. Her coronary risk factors are positive for a history of hypertension and hyperlipidemia. She is a nonsmoker, nondiabetic. MEDICATIONS: Include Norvasc 5 mg daily, Pravastatin 10 mg daily, Ditropan, Levoxyl, HydroDIURIL 12 .5 mg daily, Aricept and vitamin D. REVIEW OF SYSTEMS: RESPIRATORY SYSTEM: She has dyspnea on exertion, but no recent wheezing or cough. GI SYSTEM: No recent GI bleed. No peptic ulcer disease. SYSTEM: No dysuria or hematuria. NERVOUS SYSTEM: She has a history of stroke as noted. PHYSICAL EXAMINATION: She is an 86-year-old female in no apparent distress. The blood pressure in the 140s up to the 170s with a heart rate in the 60s. HEAD: Normocephalic. EYES: Sclerae nonicteric. NECK: Good upstroke. No bruit. LUNGS: Clear to auscultation. HEART: Regular rate and rhythm, S1, S2. No S3 with systolic murmur heard at the base ejection type, no diastolic murmur. No rub. ABDOMEN: Soft, nontender. Positive bowel sounds. No organomegaly. EXTREMITIES: Her extremities are tender, but no evidence of edema. LAB DATA: EKG with sinus arrhythmia with nonspecific ST-T wave changes. On the monitor, she had evidence of persistent sinus arrhythmia. Her troponins are less than 0.012 for 3 samples, cholesterol 178, LDL of 83, BUN and creatinine 21 and 0.9. Potassium 3.9, hemoglobin of 12. Her chest CT angiogram revealed no evidence of pulmonary embolism. There was evidence of calcification of the coronary arteries. Her chest x-ray showed no acute infiltrate. IMPRESSION: 1. Symptoms of dizziness with no clear evidence of tachy or bradyarrhythmia. Patient has a evidence of sinus arrhythmia, but do not appear to be symptomatic. 2. Hypertension. 3. Symptoms of fatigue. 4. History of hyperlipidemia. 5. History of cerebrovascular accident. RECOMMENDATION: From the cardiac standpoint, I will obtain an echocardiogram with Doppler. I do not see any evidence of active ischemic heart disease at this time. Patient has calcification of coronary arteries, but I do not believe that there is an active ischemia and it would maximize her medical therapy. Will follow her blood pressure. She will continue on her present medical regimen because of the elevation that was noted since her admission. I will add an SB inhibitor and follow her blood pressure very closely and depending on the trend, further recommendation will be made. Thank you for this consult. Will follow with you. MURRAY / ROSITA: [id number] /
--- NOTE | 2017-04-06 11:57 | ECHOF ---
Referral Reason:htn MEASUREMENTS -------- HEIGHT: 160.0 cm WEIGHT: 66.2 kg BP: 177/91 RVIDd: 2.9 cm (< 3.3) IVSd: 1.2 cm (0.6 - 1.1) LVIDd: 4.3 cm (3.9 - 5.3) LVPWd: 1.2 cm (0.6 - 1.1) IVSs: 1.7 cm LVIDs: 2.8 cm LVPWs: 1.7 cm LAESV Index (A-L): 38.53 ml/m Ao Diam: 3.0 cm (2.0 - 3.7) AV Cusp: 0.6 cm (1.5 - 2.6) LA Diam: 4.2 cm (2.7 - 3.8) MV EXCURSION: 13.341 mm (> 18.000) MV EF SLOPE: 73 mm/s (70 - 150) EPSS: 0.5 cm MV E Stalin: 0.94 m/s MV DecT: 254 ms MV A Stalin: 1.24 m/s MV E/A Ratio: 0.76 AV maxP.55 mmHg AV meanP.94 mmHg RAP: 5.00 mmHg RVSP: 33.76 mmHg FINDINGS -------- Sinus rhythm. This was a technically adequate study. The left ventricular size is normal. There is mild concentric left ventricular hypertrophy. Overa ll left ventricular systolic function is normal with, an EF between 55 - 60 %. The right ventricle is normal in size and function. LA is moderately dilated 34-39 ml/m2 The right atrium is normal in size. Aortic valve is trileaflet and is moderately thickened. Mild aortic stenosis with peak/mean pressur e gradient of 19.55mmHg / 10.94mmHg , the aortic valve area by continuity equation is 1.4cm. Moderate mitral annular calcification present. Mild mitral regurgitation is present. Mild tricuspid regurgitation present. The right ventricular systolic pressure, as measured by Doppl er, is 33.76mmHg. The pulmonic valve was not well visualized. There is no pulmonic regurgitation present. The aortic root size is normal. Normal inferior vena cava with normal inspiratory collapse consistent with estimated right atrial pre ssure of 5 mmHg. There is no pericardial effusion. CONCLUSIONS -------- 1. Sinus rhythm. 2. This was a technically adequate study. 3. There is mild concentric left ventricular hypertrophy. 4. Overall left ventricular systolic function is normal with, an EF between 55 - 60 %. 5. LA is moderately dilated 34-39 ml/m2 6. Aortic valve is trileaflet and is moderately thickened. 7. Mild aortic stenosis with peak/mean pressure gradient of 19.55mmHg / 10.94mmHg , the aortic valve area by continuity equation is 1.4cm. 8. Moderate mitral annular calcification present. 9. Mild mitral regurgitation is present. 10. Mild tricuspid regurgitation present. 11. The right ventricular systolic pressure, as measured by Doppler, is 33.76mmHg. 12. The pulmonic valve was not well visualized. 13. There is no pulmonic regurgitation present. 14. The aortic root size is normal. 15. There is no pericardial effusion. SUPPORT SERVICES SPECIALIST: Tarun Abbasi RDCS
--- NOTE | 2017-04-06 16:09 | P.HPIM ---
History of Present Illness 86-year-old female was admitted for chest pain although she denied any chest pain patient was comparing of dizziness which is lightheadedness denied any fever, chills, nausea vomiting patient was a valid by cardiology no further determinations from them patient blood pressure was elevated because of which patient was started on lisinopril which I'm discontinuing because of her continued dizziness patient blood pressure is normal but low normal systolic now patient blood pressure was elevated yesterday patient the head any EKG and echocardiogram did not show any significant abnormality patient has generalized weakness because of which we're opting PT and OT evaluation before her discharge patient doesn't have any signs or symptoms of sepsis no significant abnormality and national sales associate, 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 Review of Systems REVIEW OF SYSTEMS: CONSTITUTIONAL: No fever, no malaise, no fatigue. HEENT: No recent visual problems or hearing problems. Denied any sore throat. CARDIOVASCULAR: No chest pain, orthopnea, PND, no palpitations, no syncope. PULMONARY: No shortness of breath, no cough, no hemoptysis. GASTROINTESTINAL: No diarrhea, no nausea, no vomiting, no abdominal pain. Normoactive bowel sounds. NEUROLOGICAL: No headaches, no weakness, no numbness. HEMATOLOGICAL: Denies any bleeding or petechiae. GENITOURINARY: Denies any burning micturition, frequency, or urgency. MUSCULOSKELETAL/RHEUMATOLOGICAL: Denies any joint pain, swelling, or any muscle pain. ENDOCRINE: Denies any polyuria or polydipsia. The rest of the 14-point review of systems is negative. Past Medical History Past Medical History: CVA/TIA, Dementia, Deep Vein Thrombosis (DVT), Hyperlipidemia, Hypertension, Memory Impairment, Pneumonia, Skin Disorder, Thyroid Disorder Additional Past Medical History / Comment(s): "memory problems" SINCE STROKE AND RT SIDE AFFECTED.DVT RT LEG History of Any Multi-Drug Resistant Organisms: None Reported Past Surgical History: Appendectomy, Hysterectomy Additional Past Surgical History / Comment(s): colonosocpy Past Anesthesia/Blood Transfusion Reactions: No Reported Reaction Smoking Status: Former smoker - Past Family History Father History Unknown: Yes Family Medical History: Unable to Obtain Mother History Unknown: Yes Family Medical History: Unable to Obtain Medications and Allergies Home Medications Medication Instructions Recorded Confirmed Type Donepezil [Aricept] 10 mg PO DAILY 12/11/13 04/05/17 History Levothyroxine Sodium [Levoxyl] 100 mcg PO DAILY 12/11/13 04/05/17 History Pravastatin Sodium [Pravachol] 10 mg PO HS 12/11/13 04/05/17 History Cholecalciferol [Vitamin D3] 1,000 unit PO DAILY 04/07/14 04/05/17 History amLODIPine [Norvasc] 5 mg PO DAILY 03/22/15 04/05/17 History Hydrochlorothiazide [Hydrodiuril] 12.5 mg PO DAILY 04/05/17 04/05/17 History Oxybutynin ER [Ditropan Xl] 10 mg PO DAILY 04/05/17 04/05/17 History Allergies Allergy/AdvReac Type Severity Reaction Status Date / Time colesevelam [From WelChol] Allergy Unknown Verified 04/05/17 14:26 Physical Exam Vitals: Vital Signs Temp Pulse Resp BP Pulse Ox 04/06/17 12:00 98.0 F 67 18 115/60 95 04/06/17 08:00 97.5 F L 53 L 18 177/91 94 L 04/06/17 04:00 97.7 F 67 18 143/68 96 04/06/17 00:00 18 04/05/17 23:42 97.9 F 66 18 150/66 99 04/05/17 20:00 18 04/05/17 19:37 97.4 F L 58 L 18 154/70 95 04/05/17 17:49 97.5 F L 66 16 171/76 97 04/05/17 16:12 98.0 F Intake and Output 04/06/17 04/06/17 04/06/17 06:59 14:59 22:59 Intake Total 360 Balance 360 Intake: Oral 360 Other: Voiding Method Toilet # Voids 1 1 PHYSICAL EXAMINATION: GENERAL: The patient is alert and oriented x3, not in any acute distress. Well developed, well nourished. HEENT: Pupils are round and equally reacting to light. EOMI. No scleral icterus. No conjunctival pallor. Normocephalic, atraumatic. No pharyngeal erythema. No thyromegaly. CARDIOVASCULAR: S1 and S2 present. No murmurs, rubs, or gallops. PULMONARY: Chest is clear to auscultation, no wheezing or crackles. ABDOMEN: Soft, nontender, nondistended, normoactive bowel sounds. No palpable organomegaly. MUSCULOSKELETAL: No joint swelling or deformity. EXTREMITIES: No cyanosis, clubbing, or pedal edema. NEUROLOGICAL: Gross neurological examination did not reveal any focal deficits. SKIN: No rashes. Results CBC & Chem 7: 04/05/17 12:35 04/05/17 12:35 Labs: Abnormal Lab Results - Last 24 Hours (Table) 04/06/17 Range/Units 06:26 HDL Cholesterol 81 H (40-60) mg/dL Microbiology - Last 24 Hours (Table) 04/05/17 13:05 Urine Culture - Preliminary Urine,Voided Thrombosis Risk Factor Assmnt - Choose All That Apply Any of the Below Risk Factors Present?: Yes Each Factor Represents 1 point: Obesity (BMI >25) Other Risk Factors: Yes Each Risk Factor Represents 3 Points: Age 75 years or older, History of DVT/PE Other congenital or acquired thrombophilia - If yes, enter type in comment: No Thrombosis Risk Factor Assessment Total Risk Factor Score: 7 Thrombosis Risk Factor Assessment Level: High Risk Assessment and Plan Plan: #1 lightheadedness unsure of the exact etiology, patient does not have any positive orthostatic vitals is not in renal dysfunction or dehydrated, patient doesn't have any sepsis all the workup is negative. Will monitor 1 more day discontinue lisinopril, and amlodipine which was started today morning. No abnormality on telemetry. #2 generalized weakness PT and OT evaluation for deconditioning. #3dementia appears to be moderate continue with her home medications. #4 history of DVT in the past #5 hypertension #6 hypothyroidism #7 CVA TIA in the past For above-mentioned chronic medical problems patient will continued on home medications.
[2017-04-06] MEDS: PRAVASTATIN SODIUM 20 MG TAB PO SCH (20:07)
[2017-04-07] MEDS: LEVOTHYROXINE 100 MCG TAB PO SCH (05:57)
[2017-04-07] MEDS ORDERED: ASPIRIN 81 MG PO SCH (09:00)
[2017-04-07] MEDS: CHOLECALCIFEROL 1,000 UNIT TAB PO SCH (09:46)
[2017-04-07] MEDS: HYDROCHLOROTHIAZIDE 12.5 MG CAP PO SCH (09:46)
[2017-04-07] MEDS: DONEPEZIL 10 MG TAB PO SCH (09:46)
[2017-04-07] MEDS: OXYBUTYNIN 10 MG TAB.ER.24 PO SCH (09:47)
[2017-04-07 12:06] VITALS: BP 114/64; PULSE 66; RESP 14; TEMP 97.9
--- NOTE | 2017-04-07 14:07 | P.PN ---
Subjective Patient is sitting comfortably in bed. Eating breakfast. Denied any dizziness. No chest discomfort no undue shortness of breath On examination her blood pressure was well controlled 134/71 and 114/64 mmHg, afebrile 97.9F, heart rates in the 50s and 60s Heart sounds S1 and S2 are normal Breath sounds are clear no rhonchi no crackles abdomen is soft nontender 2-D echo report was reviewed and shows preserved LV systolic function Impression Hypertension Dyslipidemia History of CVA Presented with dizziness Suggest Watch for bradycardia Continue antihypertensive regimen Objective - Vital Signs Vital signs: Vital Signs Temp 97.9 F 04/07/17 12:00 Pulse 66 04/07/17 12:00 Resp 14 04/07/17 12:00 BP 114/64 04/07/17 12:00 Pulse Ox 97 04/07/17 12:00 Intake & Output 04/06/17 04/07/17 04/07/17 18:59 06:59 18:59 Intake Total 600 250 Balance 600 250 Intake: Oral 600 250 Other: Voiding Method Toilet Toilet Toilet Diaper # Voids 1 2 1 - Labs CBC & Chem 7: 04/05/17 12:35 04/05/17 12:35 Labs: Microbiology - Last 24 Hours (Table) 04/05/17 13:05 Urine Culture - Preliminary Urine,Voided Gram Neg Bacilli
--- NOTE | 2017-04-07 14:52 | P.DS ---
Providers Date of admission: 04/05/17 14:13 Attending physician: Amado Newsome Consults: 04/06/17 08:34 Consult Physician Urgent Consulting Provider: Russell Armstrong Consult Reason/Comments: chest pain Do you want consulting provider notified?: Yes Primary care physician: Moe Hedrick [facility] Course: Patient is feeling better today patient is admitted for lightheadedness etiology is unclear at this point of time but patient the is almost at her baseline I discontinued her hydrochlorothiazide with concerns of hypotension at home which may be contributing to her lightheadedness and patient will be discharged today. Velasquez and family member was counseled regarding appropriate way of checking blood pressure at home documenting it and take it. 2 primary care physician GENERAL: The patient is alert and oriented x3, not in any acute distress. Well developed, well nourished. HEENT: Pupils are round and equally reacting to light. EOMI. No scleral icterus. No conjunctival pallor. Normocephalic, atraumatic. No pharyngeal erythema. No thyromegaly. CARDIOVASCULAR: S1 and S2 present. No murmurs, rubs, or gallops. PULMONARY: Chest is clear to auscultation, no wheezing or crackles. ABDOMEN: Soft, nontender, nondistended, normoactive bowel sounds. No palpable organomegaly. MUSCULOSKELETAL: No joint swelling or deformity. EXTREMITIES: No cyanosis, clubbing, or pedal edema. NEUROLOGICAL: Gross neurological examination did not reveal any focal deficits. SKIN: No rashes. #1 lightheadedness unsure of the exact etiology, patient does not have any positive orthostatic vitals is not in renal dysfunction or dehydrated, patient doesn't have any sepsis all the workup is negative. #2 generalized weakness PT and OT evaluation for deconditioning. #3dementia appears to be moderate continue with her home medications. #4 history of DVT in the past #5 hypertension #6 hypothyroidism #7 CVA TIA in the past Patient Condition at Discharge: Fair Plan - Discharge Summary Discharge Rx Participant: No New Discharge Prescriptions: Discontinued Hydrochlorothiazide [Hydrodiuril] 12.5 mg PO DAILY No Action Donepezil [Aricept] 10 mg PO DAILY Pravastatin Sodium [Pravachol] 10 mg PO HS Levothyroxine Sodium [Levoxyl] 100 mcg PO DAILY Cholecalciferol [Vitamin D3] 1,000 unit PO DAILY amLODIPine [Norvasc] 5 mg PO DAILY Oxybutynin ER [Ditropan Xl] 10 mg PO DAILY Discharge Medication List Donepezil [Aricept] 10 mg PO DAILY 12/11/13 [History] Levothyroxine Sodium [Levoxyl] 100 mcg PO DAILY 12/11/13 [History] Pravastatin Sodium [Pravachol] 10 mg PO HS 12/11/13 [History] Cholecalciferol [Vitamin D3] 1,000 unit PO DAILY 04/07/14 [History] amLODIPine [Norvasc] 5 mg PO DAILY 03/22/15 [History] Oxybutynin ER [Ditropan Xl] 10 mg PO DAILY 04/05/17 [History] Follow up Appointment(s)/Referral(s): Russell Armstrong MD [STAFF PHYSICIAN] - 05/01/17 9:30 am Moe Hedrick MD [Primary Care Provider] - 1-2 days Patient Instructions/Handouts: Chest Pain (GEN), Weakness (GEN), Dizziness (GEN ) Discharge Disposition: HOME SELF-CARE
== END 2017-04-07 12:52 | disposition home or self-care (01) ==
LOC: EC 12:17 → 3OBS 14:13
PROVIDERS: ADMIT Hospitalist; ATTEND Hospitalist
DX: R42 Dizziness and giddiness (principal); R53.1 Weakness; R53.83 Other fatigue; I10 Essential (primary) hypertension; E78.5 Hyperlipidemia, unspecified; F03.90 Unspecified dementia, unspecified severity, without behavioral disturbance, psychotic disturbance, mood disturbance, and anxiety; I25.10 Atherosclerotic heart disease of native coronary artery without angina pectoris; E03.9 Hypothyroidism, unspecified; E66.9 Obesity, unspecified; Z68.25 Body mass index [BMI] 25.0-25.9, adult; Z87.891 Personal history of nicotine dependence; Z88.8 Allergy status to other drugs, medicaments and biological substances; Z79.899 Other long term (current) drug therapy; Z86.73 Personal history of transient ischemic attack (TIA), and cerebral infarction without residual deficits; Z86.718 Personal history of other venous thrombosis and embolism
CPT/HCPCS: 99285 ×2; 96374 ×2; 96375 ×3; 36415; 93005; 93306; 97162; 97166; 83880; 80061; 80053; 82550 ×2; 82553 ×2; 83735; 84100; 84484 ×2; 85025; 85610; 85730; 81003; 87086; 87077; 87186; 71020; 70450; 71275; G0378 ×3; J1940; J2270; Q9967; J2405

== ENCOUNTER 2018-04-01 19:55 | Emergency (ER) | payer MEDICARE, BC ==
[2018-04-01 20:04] VITALS: RESP 16
[2018-04-01] MEDS ORDERED: SODIUM CHLORIDE 0.9% 500 ML 500 ML IV SCH (20:30)
[2018-04-01] MEDS ORDERED: SODIUM CHLORIDE 0.9% 1,000 ML IV SCH (20:30)
--- NOTE | 2018-04-01 20:42 | ED ---
Female Urogenital HPI - General Source: patient, EMS, RN notes reviewed, old records reviewed Mode of arrival: EMS Limitations: no limitations <Renuka Barraza - Last Filed: 04/01/18 22:27> <Anat Alicia - Last Filed: 04/02/18 02:27> - General Chief complaint: Urogenital Stated complaint: Frequent Urination Time Seen by Provider: 04/01/18 20:13 - History of Present Illness Initial comments: Patient is a 87-year-old female who presents emergency room today with chief complaint of dysuria polyuria for the past day. She reports last night she had multiple episodes of urination. Patient states that she has lower abdominal pain as well. Denies any chest pain shortness breath. Patient states that she 's had no previous UTIs in the past.Patient denies any recent fever, chills, shortness of breath, chest pain, back pain, abdominal pain, nausea vomiting, numbness or tingling, dysuria or hematuria, constipation or diarrhea, headaches or visual changes, or any other current symptoms (Renuka Barraza) - Related Data Home Medications Medication Instructions Recorded Confirmed Donepezil [Aricept] 10 mg PO DAILY 12/11/13 04/01/18 Levothyroxine Sodium [Levoxyl] 100 mcg PO DAILY 12/11/13 04/01/18 Pravastatin Sodium [Pravachol] 10 mg PO HS 12/11/13 04/01/18 amLODIPine [Norvasc] 5 mg PO DAILY 03/22/15 04/01/18 Oxybutynin ER [Ditropan Xl] 10 mg PO DAILY 04/05/17 04/01/18 Hydrochlorothiazide 12.5 mg PO DAILY 04/01/18 04/01/18 Allergies Allergy/AdvReac Type Severity Reaction Status Date / Time colesevelam [From WelChol] Allergy Unknown Verified 04/01/18 20:37 Review of Systems ROS Other: All systems not noted in ROS Statement are negative. <Renuka Barraza - Last Filed: 04/01/18 22:27> ROS Other: All systems not noted in ROS Statement are negative. <Anat Alicia - Last Filed: 04/02/18 02:27> ROS Statement: Those systems with pertinent positive or pertinent negative responses have been documented in the HPI. Past Medical History Past Medical History: CVA/TIA, Dementia, Deep Vein Thrombosis (DVT), Hyperlipidemia, Hypertension, Memory Impairment, Pneumonia, Skin Disorder, Thyroid Disorder Additional Past Medical History / Comment(s): "memory problems" SINCE STROKE AND RT SIDE AFFECTED.DVT RT LEG History of Any Multi-Drug Resistant Organisms: ESBL Date of last positivie culture/infection: 04/05/17 MDRO Source:: ESBL URINE Past Surgical History: Appendectomy, Hysterectomy Additional Past Surgical History / Comment(s): colonosocpy Past Anesthesia/Blood Transfusion Reactions: No Reported Reaction Past Psychological History: No Psychological Hx Reported Smoking Status: Former smoker - Past Family History Father History Unknown: Yes Family Medical History: Unable to Obtain Mother History Unknown: Yes Family Medical History: Unable to Obtain <Renuka Barraza - Last Filed: 04/01/18 22:27> General Exam Limitations: no limitations General appearance: alert, in no apparent distress Head exam: Present: atraumatic, normocephalic, normal inspection Eye exam: Present: normal appearance, PERRL, EOMI. Absent: scleral icterus, conjunctival injection, periorbital swelling ENT exam: Present: normal exam, normal oropharynx, mucous membranes moist Neck exam: Present: normal inspection. Absent: tenderness, meningismus, lymphadenopathy Respiratory exam: Present: normal lung sounds bilaterally. Absent: respiratory distress, wheezes, rales, rhonchi, stridor Cardiovascular Exam: Present: regular rate, normal rhythm, normal heart sounds. Absent: systolic murmur, diastolic murmur, rubs, gallop, clicks GI/Abdominal exam: Present: soft, tenderness (Lower abdominal tenderness), normal bowel sounds. Absent: distended, guarding, rebound, rigid Extremities exam: Present: normal inspection, full ROM, normal capillary refill , pedal edema (Bilateral pedal edema). Absent: tenderness, joint swelling, calf tenderness Back exam: Present: normal inspection Neurological exam: Present: alert, oriented X3, CN II-XII intact Psychiatric exam: Present: normal affect, normal mood <Renuka Barraza - Last Filed: 04/01/18 22:27> <Anat Alicia - Last Filed: 04/02/18 02:27> - General Exam Comments Initial Comments: 87-year-old female. Alert and oriented. Patient appears in no acute distress. (Renuka Barraza) Vital Signs 04/01/18 04/01/18 19:59 22:59 Temperature 98.8 F 98.0 F Pulse Rate 78 63 Respiratory 16 16 Rate Blood Pressure 170/64 167/72 O2 Sat by Pulse 97 Oximetry Medical Decision Making - Lab Data Result diagrams: 04/01/18 20:10 04/01/18 20:10 - Radiology Data Radiology results: report reviewed <Renuka Barraza - Last Filed: 04/01/18 22:27> - Lab Data Result diagrams: 04/01/18 20:10 04/01/18 20:10 <Anat Alicia - Last Filed: 04/02/18 02:27> - Medical Decision Making 87-year-old female has emergency Department via EMS for chief complaint of polyuria. She reports she is urinating multiple times last night and complains of lower abdominal pain. This time patient's labwork was reviewed and unremarkable couple. EKG shows no acute changes. She will had no signs of urinary tract infection in her urine at this time. Patient lab work again was otherwise normal. We did complete a computed tomography scan due to lower abdominal tenderness. This was negative for any acute process. She has atherosclerotic vessels and hiatal hernia. Otherwise nonacute abdomen noted. Patient was informed of all these results. I did discuss that her symptoms quickly to 2 hydration and that she should have a urine culture and we will have her follow-up with her primary care physician. Patient agrees treatment plan will comply. Return parameters were discussed. (Renuka Barraza) I was available for consultation in the emergency department. The history and physical exam were done by the midlevel provider. I was consulted for this patient's care. I reviewed the case with the midlevel provider and based on their presentation of the patient, I agree with the assessment, medical decision making and plan of care as documented. (Anat Alicia) - Lab Data Lab Results 04/01/18 04/01/18 04/01/18 Range/Units 20:10 20:10 20:10 WBC 7.4 (3.8-10.6) k/uL RBC 4.00 (3.80-5.40) m/uL Hgb 12.2 (11.4-16.0) gm/dL Hct 36.5 (34.0-46.0) % MCV 91.1 (80.0-100.0) fL MCH 30.4 (25.0-35.0) pg MCHC 33.4 (31.0-37.0) g/dL RDW 13.8 (11.5-15.5) % Plt Count 215 (150-450) k/uL Neutrophils % 67 % Lymphocytes % 20 % Monocytes % 7 % Eosinophils % 4 % Basophils % 1 % Neutrophils # 5.0 (1.3-7.7) k/uL Lymphocytes # 1.5 (1.0-4.8) k/uL Monocytes # 0.5 (0-1.0) k/uL Eosinophils # 0.3 (0-0.7) k/uL Basophils # 0.0 (0-0.2) k/uL PT 10.0 (9.0-12.0) sec INR 1.0 (<1.2) APTT 22.1 (22.0-30.0) sec Sodium 137 (137-145) mmol/L Potassium 4.0 (3.5-5.1) mmol/L Chloride 103 (98-107) mmol/L Carbon Dioxide 26 (22-30) mmol/L Anion Gap 8 mmol/L BUN 18 H (7-17) mg/dL Creatinine 0.89 (0.52-1.04) mg/dL Est GFR (CKD-EPI)AfAm 67 (>60 ml/min/1.73 sqM) Est GFR (CKD-EPI)NonAf 59 (>60 ml/min/1.73 sqM) Glucose 139 H (74-99) mg/dL Plasma Lactic Acid Pantera (0.7-2.0) mmol/L Calcium 9.6 (8.4-10.2) mg/dL Total Bilirubin 0.6 (0.2-1.3) mg/dL AST 36 (14-36) U/L ALT 15 (9-52) U/L Alkaline Phosphatase 37 L (38-126) U/L NT-Pro-B Natriuret Pep pg/mL Total Protein 6.8 (6.3-8.2) g/dL Albumin 3.7 (3.5-5.0) g/dL Urine Color Urine Appearance (Clear) Urine pH (5.0-8.0) Ur Specific Bergoo (1.001-1.035) Urine Protein (Negative) Urine Glucose (UA) (Negative) Urine Ketones (Negative) Urine Blood (Negative) Urine Nitrite (Negative) Urine Bilirubin (Negative) Urine Urobilinogen (<2.0) mg/dL Ur Leukocyte Esterase (Negative) 04/01/18 04/01/18 04/01/18 Range/Units 20:10 20:10 21:25 WBC (3.8-10.6) k/uL RBC (3.80-5.40) m/uL Hgb (11.4-16.0) gm/dL Hct (34.0-46.0) % MCV (80.0-100.0) fL MCH (25.0-35.0) pg MCHC (31.0-37.0) g/dL RDW (11.5-15.5) % Plt Count (150-450) k/uL Neutrophils % % Lymphocytes % % Monocytes % % Eosinophils % % Basophils % % Neutrophils # (1.3-7.7) k/uL Lymphocytes # (1.0-4.8) k/uL Monocytes # (0-1.0) k/uL Eosinophils # (0-0.7) k/uL Basophils # (0-0.2) k/uL PT (9.0-12.0) sec INR (<1.2) APTT (22.0-30.0) sec Sodium (137-145) mmol/L Potassium (3.5-5.1) mmol/L Chloride (98-107) mmol/L Carbon Dioxide (22-30) mmol/L Anion Gap mmol/L BUN (7-17) mg/dL Creatinine (0.52-1.04) mg/dL Est GFR (CKD-EPI)AfAm (>60 ml/min/1.73 sqM) Est GFR (CKD-EPI)NonAf (>60 ml/min/1.73 sqM) Glucose (74-99) mg/dL Plasma Lactic Acid Pantera 1.1 (0.7-2.0) mmol/L Calcium (8.4-10.2) mg/dL Total Bilirubin (0.2-1.3) mg/dL AST (14-36) U/L ALT (9-52) U/L Alkaline Phosphatase (38-126) U/L NT-Pro-B Natriuret Pep 749 pg/mL Total Protein (6.3-8.2) g/dL Albumin (3.5-5.0) g/dL Urine Color Light Yellow Urine Appearance Clear (Clear) Urine pH 6.0 (5.0-8.0) Ur Specific Berg[place] 1.004 (1.001-1.035) Urine Protein Negative (Negative) Urine Glucose (UA) Negative (Negative) Urine Ketones Negative (Negative) Urine Blood Negative (Negative) Urine Nitrite Negative (Negative) Urine Bilirubin Negative (Negative) Urine Urobilinogen <2.0 (<2.0) mg/dL Ur Leukocyte Esterase Negative (Negative) 04/01/18 22:24 EKG performed at 2014 1 shows sinus rhythm with marked sinus arrhythmia and nonspecific ST and around. Normal EKG noted. Ventricular rate of 66 bpm. Pulse 126 ms. QS duration 94 ms. QT QTc is 428/448 ms. No evidence of ST elevation or T-wave inversions. No evidence of atrial ventricular arrhythmias. (Renuka Barraza) - Radiology Data Hiatal hernia noted and CT. Extensive atherosclerotic vascular disease. No sign of acute abdomen and pelvis. No adverse changes compared old exam. ( Renuka Barraza) Disposition Is patient prescribed a controlled substance at d/c from ED?: No Time of Disposition: 22:26 <Renuka Barraza - Last Filed: 04/01/18 22:27> <Anat Alicia - Last Filed: 04/02/18 02:27> Clinical Impression: Polyuria Disposition: HOME SELF-CARE Condition: Good Instructions: Polyuria (ED) Additional Instructions: Patient advised follow-up with primary care provider. Return to emergency department if any alarming signs or symptoms occur. Referrals: Moe Hedrick MD [Primary Care Provider] - 1-2 days
[2018-04-01 21:07] LABS: Appearance,Urine Clear (Clear); Basophils % (A) 1 %; Bilirubin,Urine Negative (Negative); Blood,Urine Negative (Negative); Color,Urine Light Yellow; Eosinophils # (A) 0.3 k/uL (0-0.7); Eosinophils % (A) 4 %; Glucose,Urine (UA) Negative (Negative); HCT 36.5 % (34.0-46.0); HGB 12.2 gm/dL (11.4-16.0); Ketones,Urine Negative (Negative); Leukocyte Esterase,Urine Negative (Negative); Lymphocytes # (A) 1.5 k/uL (1.0-4.8); Lymphocytes % (A) 20 %; MCH 30.4 pg (25.0-35.0); MCHC 33.4 g/dL (31.0-37.0); MCV 91.1 fL (80.0-100.0); Mean Platelet Volume 7.1; Monocytes # (A) 0.5 k/uL (0-1.0); Monocytes % (A) 7 %; Neutrophils % (A) 67 %; Nitrite,Urine Negative (Negative); Platelet Count 215 k/uL (150-450); Protein,Urine Negative (Negative); RDW 13.8 % (11.5-15.5); Specific Gravity,Urine 1.004 (1.001-1.035); Urobilinogen,Urine <2.0 mg/dL (<2.0); WBC 7.4 k/uL (3.8-10.6)
[2018-04-01 21:17] LABS: Albumin 3.7 g/dL (3.5-5.0); Calcium 9.6 mg/dL (8.4-10.2); Total Bilirubin 0.6 mg/dL (0.2-1.3); Total Protein 6.8 g/dL (6.3-8.2)
[2018-04-01 21:18] LABS: Partial Thromboplastin Time 22.1 sec (22.0-30.0)
--- NOTE | 2018-04-01 22:13 | CT ---
EXAMINATION TYPE: CT abdomen pelvis w con DATE OF EXAM: 04/01/2018 COMPARISON: 01/09/2017 HISTORY: Lower pelvic pain CT DLP: 650.5 mGycm Automated exposure control for dose reduction was used. TECHNIQUE: Helical acquisition of images was performed from the lung bases through the pelvis. CONTRAST: Performed without Oral Contrast and with IV Contrast, patient injected with 100 mL of Isovue 300. FINDINGS: Lung bases are clear of consolidation. There is no pleural effusion. There is large hiatal hernia. Th ere is no pericardial effusion. Liver shows no focal defect. Spleen appears normal. Bile ducts are not dilated. The bladder appears n ormal. There is no pancreatic mass. There is no adrenal mass. Kidneys show satisfactory contrast opacification. There is no hydronephrosi s. Ureters are not dilated. There is no ascites. Bladder distends smoothly. There is no free fluid in the pelvis. There is no inguinal hernia. There is no evidence of free air. There is no intestinal wall thickening. There are no dilated loops. There is no mesenteric edema or a denopathy. There are spondylotic changes in the lumbar spine. There is no compression fracture. Appen nichole is not seen. There is no sign of appendicitis. There is right side periarticular ossification at the hip joint. Abdominal aorta is atheromatous. There is no aneurysm.. There is an L3-4 mild retrolis thesis. IMPRESSION: HIATAL HERNIA. EXTENSIVE ATHEROSCLEROTIC VASCULAR DISEASE. NO SIGN OF ACUTE ABDOMEN AND PELVIS. NO AD VERSE CHANGE COMPARED TO OLD EXAM.
[2018-04-01] MEDS ORDERED: PHENAZOPYRIDINE 100 MG TAB PO STA (22:34)
[2018-04-01 23:01] VITALS: BP 167/72; PULSE 63; TEMP 98
== END 2018-04-01 23:00 | disposition home or self-care (01) ==
LOC: EC 19:55
DX: R35.8 Other polyuria (principal); R30.0 Dysuria; R10.30 Lower abdominal pain, unspecified; K44.9 Diaphragmatic hernia without obstruction or gangrene; F03.90 Unspecified dementia, unspecified severity, without behavioral disturbance, psychotic disturbance, mood disturbance, and anxiety; I10 Essential (primary) hypertension; E78.5 Hyperlipidemia, unspecified; E07.9 Disorder of thyroid, unspecified; Z79.899 Other long term (current) drug therapy; Z88.8 Allergy status to other drugs, medicaments and biological substances; Z86.73 Personal history of transient ischemic attack (TIA), and cerebral infarction without residual deficits; Z86.718 Personal history of other venous thrombosis and embolism; Z87.891 Personal history of nicotine dependence; Z90.89 Acquired absence of other organs; Z90.710 Acquired absence of both cervix and uterus
CPT/HCPCS: 36415; 93005; 83880; 80053; 83605; 85025; 85610; 85730; 81003; 87040; 87086; 74177; 99284; 96360; 96361; Q9967

== ENCOUNTER 2018-09-05 15:21 | Inpatient (IN) | payer MEDICARE, BC ==
[2018-09-05] MEDS ORDERED: SODIUM CHLORIDE 0.9% 1,000 ML IV ONE ×2 (15:51)
[2018-09-05 16:17] LABS: Basophils # (A) 0.1 k/uL (0-0.2); Basophils % (A) 0 %; Eosinophils # (A) 0.2 k/uL (0-0.7); Eosinophils % (A) 1 %; HCT 36.4 % (34.0-46.0); HGB 12.1 gm/dL (11.4-16.0); Lymphocytes # (A) 0.8 k/uL (1.0-4.8); Lymphocytes % (A) 5 %; MCH 29.4 pg (25.0-35.0); MCHC 33.2 g/dL (31.0-37.0); MCV 88.4 fL (80.0-100.0); Monocytes # (A) 0.7 k/uL (0-1.0); Monocytes % (A) 4 %; Neutrophils # (A) 15.5 k/uL (1.3-7.7); Neutrophils % (A) 90 %; Platelet Count 189 k/uL (150-450); RBC 4.11 m/uL (3.80-5.40); RDW 14.1 % (11.5-15.5); WBC 17.3 k/uL (3.8-10.6)
[2018-09-05 16:30] LABS: Albumin 3.5 g/dL (3.5-5.0); Calcium 9.4 mg/dL (8.4-10.2); Potassium 3.3 mmol/L (3.5-5.1); Total Bilirubin 0.5 mg/dL (0.2-1.3); Total Protein 6.2 g/dL (6.3-8.2)
[2018-09-05 16:34] LABS: INR 0.9 (<1.2); Prothrombin Time 10.2 sec (9.0-12.0)
--- NOTE | 2018-09-05 16:34 | XR ---
EXAMINATION TYPE: XR chest 2V DATE OF EXAM: 09/05/2018 COMPARISON: NONE HISTORY: TECHNIQUE: Frontal and lateral views of the chest are obtained. FINDINGS: There is hyperinflation. The aorta is dense. Coronary artery calcifications are present. Re trocardiac density compatible with partial intrathoracic stomach. 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 There is no focal air space opacity, pleural ef fusion, or pneumothorax seen. The cardiac silhouette size is stable, enlarged. The osseous structu res are stable, lower thoracic compression fracture noted. IMPRESSION: No acute cardiopulmonary process.
[2018-09-05 16:39] LABS: Partial Thromboplastin Time 21.3 sec (22.0-30.0)
--- NOTE | 2018-09-05 16:40 | CT ---
EXAMINATION TYPE: CT brain burke galarza con DATE OF EXAM: 09/05/2018 COMPARISON: Brain 04/05/2017 HISTORY: 88-year-old female Fall today. Complains of weakness CT DLP: 1335.3 mGycm Automated exposure control for dose reduction was used. Technique: Examination of the head was done in axial plane without intravenous contrast. Coronal and sagittal reconstructions performed. CT of the cervical spine was obtained in axial plane without intravenous injection of contrast mater ial. Coronal and sagittal reformatted images were obtained from the axial views for evaluation of f ractures, spinal alignment and canal. FINDINGS: Head: There is no evidence of acute intracranial hemorrhage, acute ischemic changes, or extra-axial fluid collection. There is no effacement of cerebral sulci or basal subarachnoid cisterns. There is no hy drocephalus. There is no midline shift. Ricci-white matter distinction is preserved. Dense atherosclerotic calcifications within the carotid siphons and vertebral arteries. Moderate generalized atrophy. Stable calcified extra-axial mass along the right superior frontoparietal junction measuring 2.5 cm, relatively unchanged. Moderate to severe confluent white matter hypodensities in both cerebral hemispheres. Encephalomalaci a and old infarct in the left insular lobe with asymmetric ex vacuo enlargement of the left lateral v entricle. Scattered mild mucosal thickening ethmoid air cells. Mastoid air cells well pneumatized. Orbits and g lobes are intact. Cervical spine: No craniocervical junction abnormality, predental space widening, or prevertebral soft tissue swellin g. Some degenerative changes at the C1 dens articulation. Reversal of the normal cervical lordosis in the upper cervical spine. Grade 1 retrolisthesis at C4-C5 and C5-C6 and grade 1 anterolisthesis at C6-C7 and C7-T1. Moderate to advanced degenerative disc disease throughout as well as facet and uncovertebral joint de generative change. No acute fracture of the cervical spine. Suspect multilevel mild spinal canal stenoses. Vertebral moderate multilevel neural foraminal stenoses, more moderate to severe at C4-C5, C6-C7, C7- T1, T1-T2. Sagittal and coronal reformatted images confirm above findings. COMBINED IMPRESSION: 1. No acute intracranial abnormality seen. Stable moderate atrophy and marked confluent changes of ch ronic small vessel ischemic disease. Stable probable 2.5 cm meningioma right frontal parietal junctio n. Old left insular lobe infarct. 2. No acute fracture of the cervical spine. 3. Moderate to advanced spondylotic change with grade 1 spondylolisthesis from C4 through T1 levels. Multilevel at least mild spinal canal stenoses in variable moderate neuroforaminal stenoses, moderate to severe as outlined above.
--- NOTE | 2018-09-05 16:42 | XR ---
EXAMINATION TYPE: XR pelvis AP view DATE OF EXAM: 09/05/2018 COMPARISON: 12/07/2016 HISTORY: 88-year-old female with generalized pain after fall FINDINGS: Marked diffuse osteopenia. Laminectomy change lower lumbar spine. Degenerative changes at the SI join ts. Moderate degenerative change at both hips. Old bony deformity with ossification medial aspect of the inferior right hip probably relating to the iliopsoas insertion. No displaced fracture is seen. IMPRESSION: Marked osteopenia and moderate bilateral hip OA. Chronic bony deformity medial inferior aspect of the right hip suspected to relate to the iliopsoas insertion. No displaced fracture seen. If the patient is nonweightbearing, MRI can provide more sensitive evaluation.
--- NOTE | 2018-09-05 16:50 | ED ---
Fall HPI - General Source: patient, EMS Mode of arrival: EMS <Renuka Barraza - Last Filed: 09/05/18 17:09> <Wade Handley - Last Filed: 09/05/18 18:33> - General Chief Complaint: Fall Stated Complaint: FALL Time Seen by Provider: 09/05/18 15:33 - History of Present Illness Initial Comments: ALLERGIES is an 88-year-old female who presents emergency department today after falling into her kitchen. Patient presented today after sitting on her floor for 3 hours waiting for somebody to come help her. She eventually scooted acros s the floor and was able to get her life alert button. Patient states that she did not hit her head when she fell. She has relatively poor historian, and will state that she has hip pain but later states she doesn't. She states that she had no chest pain prior to the fall. She was bending over picking up a broken glass when she got dizzy and fell. Patient states that she is very tired. (Renuka Barraza) - Related Data Home Medications Medication Instructions Recorded Confirmed Donepezil [Aricept] 10 mg PO DAILY 12/11/13 09/05/18 Levothyroxine Sodium [Levoxyl] 100 mcg PO DAILY 12/11/13 09/05/18 Pravastatin Sodium [Pravachol] 10 mg PO HS 12/11/13 09/05/18 amLODIPine [Norvasc] 5 mg PO DAILY 03/22/15 09/05/18 Oxybutynin ER [Ditropan Xl] 10 mg PO DAILY 04/05/17 09/05/18 Hydrochlorothiazide 12.5 mg PO DAILY 04/01/18 09/05/18 Allergies Allergy/AdvReac Type Severity Reaction Status Date / Time colesevelam [From WelChol] Allergy Unknown Verified 09/05/18 16:56 Review of Systems ROS Other: All systems not noted in ROS Statement are negative. <Renuka Barraza - Last Filed: 09/05/18 17:09> ROS Other: All systems not noted in ROS Statement are negative. <Wade Handley - Last Filed: 09/05/18 18:33> ROS Statement: Those systems with pertinent positive or pertinent negative responses have been documented in the HPI. Past Medical History Past Medical History: CVA/TIA, Dementia, Deep Vein Thrombosis (DVT), Hyperlip idemia, Hypertension, Memory Impairment, Pneumonia, Skin Disorder, Thyroid Disorder Additional Past Medical History / Comment(s): "memory problems" SINCE STROKE AND RT SIDE AFFECTED.DVT RT LEG History of Any Multi-Drug Resistant Organisms: ESBL Date of last positivie culture/infection: 04/05/17 MDRO Source:: ESBL URINE Past Surgical History: Appendectomy, Hysterectomy Additional Past Surgical History / Comment(s): colonosocpy Past Anesthesia/Blood Transfusion Reactions: No Reported Reaction Past Psychological History: No Psychological Hx Reported Smoking Status: Former smoker Past Alcohol Use History: None Reported Past Drug Use History: None Reported - Past Family History Father History Unknown: Yes Family Medical History: Unable to Obtain Mother History Unknown: Yes Family Medical History: Unable to Obtain <Renuka Barraza - Last Filed: 09/05/18 17:09> General Exam Limitations: no limitations General appearance: alert, in no apparent distress Head exam: Present: atraumatic, normocephalic, normal inspection Eye exam: Present: normal appearance, PERRL, EOMI. Absent: scleral icterus, conjunctival injection, periorbital swelling ENT exam: Present: normal exam, mucous membranes moist Neck exam: Present: normal inspection. Absent: tenderness, meningismus, lymphadenopathy Respiratory exam: Present: normal lung sounds bilaterally. Absent: respiratory distress, wheezes, rales, rhonchi, stridor Cardiovascular Exam: Present: regular rate, normal rhythm, normal heart sounds. Absent: systolic murmur, diastolic murmur, rubs, gallop, clicks GI/Abdominal exam: Present: soft, normal bowel sounds. Absent: distended, tenderness, guarding, rebound, rigid Extremities exam: Present: normal inspection, full ROM, normal capillary refill. Absent: tenderness, pedal edema, joint swelling, calf tenderness Back exam: Present: normal inspection, full ROM Neurological exam: Present: alert, oriented X3, CN II-XII intact Psychiatric exam: Present: normal affect, normal mood Skin exam: Present: warm, dry, intact, normal color. Absent: rash <Renuka Barraza - Last Filed: 09/05/18 17:09> General appearance: alert, in no apparent distress Head exam: Present: atraumatic, normocephalic, normal inspection Eye exam: Present: normal appearance, PERRL, EOMI. Absent: scleral icterus, conjunctival injection, periorbital swelling ENT exam: Present: normal exam, mucous membranes moist Neck exam: Present: normal inspection. Absent: tenderness, meningismus, lymphadenopathy Respiratory exam: Present: normal lung sounds bilaterally. Absent: respiratory distress, wheezes, rales, rhonchi, stridor Cardiovascular Exam: Present: regular rate, normal rhythm, normal heart sounds. Absent: systolic murmur, diastolic murmur, rubs, gallop, clicks GI/Abdominal exam: Present: soft, normal bowel sounds. Absent: distended, tenderness, guarding, rebound, rigid Extremities exam: Present: normal inspection, full ROM, normal capillary refill. Absent: tenderness, pedal edema, joint swelling, calf tenderness Back exam: Present: normal inspection Neurological exam: Present: alert, oriented X3, CN II-XII intact Psychiatric exam: Present: normal affect, normal mood Skin exam: Present: warm, dry, intact, normal color. Absent: rash <Wade Handley - Last Filed: 09/05/18 18:33> - General Exam Comments Initial Comments: This is an 80-year-old female. Alert and oriented 3. Patient appears in no significant distress. (Renuka Barraza) Course Vital Signs 09/05/18 09/05/18 09/05/18 15:24 17:28 18:20 Temperature 98.3 F Pulse Rate 93 76 86 Respiratory 18 18 18 Rate Blood Pressure 135/62 148/54 153/75 O2 Sat by Pulse 95 96 96 Oximetry Medical Decision Making - Lab Data Result diagrams: 09/05/18 16:01 09/05/18 16:01 - Radiology Data Radiology results: report reviewed <Renuka Barraza - Last Filed: 09/05/18 17:09> - Lab Data Result diagrams: 09/05/18 16:01 09/05/18 16:01 - EKG Data -: EKG Interpreted by Me (EKG shows normal sinus #5, CO 154, QRS 90, QTc 475) - Radiology Data Radiology results: report reviewed (CT brain C-spine chest x-ray and pelvis x- ray are negative for acute disease) <Wade Handley - Last Filed: 09/05/18 18:33> - Medical Decision Making 80-year-old female presents emergency department today after dizzy episode and falling. She laid on her ground in her kitchen for 3 hours. She eventually scooted impressed her life alert button. Patient has relatively poor story. She does state she lives alone. Patient was given IV fluids labwork obtained. Patient case transferred to Dr. Julio César Holly at 5:10 PM. (Renuka Barraza) 80 female the ER for evaluation of weakness. Fall. Patient has persistent weakness of elevated troponin. Patient IV antibiotics. Patient will be admitted for continuing monitoring of troponin, hydration and treatment of UTI. Patient also has electrode replacement (Wade Handley) - Lab Data Lab Results 09/05/18 09/05/18 09/05/18 Range/Units 16:01 16:01 16:01 WBC 17.3 H (3.8-10.6) k/uL RBC 4.11 (3.80-5.40) m/uL Hgb 12.1 (11.4-16.0) gm/dL Hct 36.4 (34.0-46.0) % MCV 88.4 (80.0-100.0) fL MCH 29.4 (25.0-35.0) pg MCHC 33.2 (31.0-37.0) g/dL RDW 14.1 (11.5-15.5) % Plt Count 189 (150-450) k/uL Neutrophils % 90 % Lymphocytes % 5 % Monocytes % 4 % Eosinophils % 1 % Basophils % 0 % Neutrophils # 15.5 H (1.3-7.7) k/uL Lymphocytes # 0.8 L (1.0-4.8) k/uL Monocytes # 0.7 (0-1.0) k/uL Eosinophils # 0.2 (0-0.7) k/uL Basophils # 0.1 (0-0.2) k/uL PT 10.2 (9.0-12.0) sec INR 0.9 (<1.2) APTT 21.3 L (22.0-30.0) sec Sodium 139 (137-145) mmol/L Potassium 3.3 L (3.5-5.1) mmol/L Chloride 104 (98-107) mmol/L Carbon Dioxide 26 (22-30) mmol/L Anion Gap 9 mmol/L BUN 28 H (7-17) mg/dL Creatinine 0.96 (0.52-1.04) mg/dL Est GFR (CKD-EPI)AfAm 61 (>60 ml/min/1.73 sqM) Est GFR (CKD-EPI)NonAf 53 (>60 ml/min/1.73 sqM) Glucose 122 H (74-99) mg/dL Calcium 9.4 (8.4-10.2) mg/dL Total Bilirubin 0.5 (0.2-1.3) mg/dL AST 26 (14-36) U/L ALT 22 (9-52) U/L Alkaline Phosphatase 60 (38-126) U/L Troponin I (0.000-0.034) ng/mL Total Protein 6.2 L (6.3-8.2) g/dL Albumin 3.5 (3.5-5.0) g/dL Urine Color Urine Appearance (Clear) Urine pH (5.0-8.0) Ur Specific [place] (1.001-1.035) Urine Protein (Negative) Urine Glucose (UA) (Negative) Urine Ketones (Negative) Urine Blood (Negative) Urine Nitrite (Negative) Urine Bilirubin (Negative) Urine Urobilinogen (<2.0) mg/dL Ur Leukocyte Esterase (Negative) Urine RBC (0-5) /hpf Urine WBC (0-5) /hpf Ur Squamous Epith Cells (0-4) /hpf Urine Mucus (None) /hpf Influenza Type A RNA (Not Detectd) Influenza Type B (PCR) (Not Detectd) 09/05/18 09/05/18 09/05/18 Range/Units 16:01 16:27 17:12 WBC (3.8-10.6) k/uL RBC (3.80-5.40) m/uL Hgb (11.4-16.0) gm/dL Hct (34.0-46.0) % MCV (80.0-100.0) fL MCH (25.0-35.0) pg MCHC (31.0-37.0) g/dL RDW (11.5-15.5) % Plt Count (150-450) k/uL Neutrophils % % Lymphocytes % % Monocytes % % Eosinophils % % Basophils % % Neutrophils # (1.3-7.7) k/uL Lymphocytes # (1.0-4.8) k/uL Monocytes # (0-1.0) k/uL Eosinophils # (0-0.7) k/uL Basophils # (0-0.2) k/uL PT (9.0-12.0) sec INR (<1.2) APTT (22.0-30.0) sec Sodium (137-145) mmol/L Potassium (3.5-5.1) mmol/L Chloride (98-107) mmol/L Carbon Dioxide (22-30) mmol/L Anion Gap mmol/L BUN (7-17) mg/dL Creatinine (0.52-1.04) mg/dL Est GFR (CKD-EPI)AfAm (>60 ml/min/1.73 sqM) Est GFR (CKD-EPI)NonAf (>60 ml/min/1.73 sqM) Glucose (74-99) mg/dL Calcium (8.4-10.2) mg/dL Total Bilirubin (0.2-1.3) mg/dL AST (14-36) U/L ALT (9-52) U/L Alkaline Phosphatase (38-126) U/L Troponin I 0.070 H* (0.000-0.034) ng/mL Total Protein (6.3-8.2) g/dL Albumin (3.5-5.0) g/dL Urine Color Yellow Urine Appearance Cloudy H (Clear) Urine pH 5.5 (5.0-8.0) Ur Specific [place] 1.018 (1.001-1.035) Urine Protein Trace H (Negative) Urine Glucose (UA) Negative (Negative) Urine Ketones Negative (Negative) Urine Blood Trace H (Negative) Urine Nitrite Negative (Negative) Urine Bilirubin Negative (Negative) Urine Urobilinogen <2.0 (<2.0) mg/dL Ur Leukocyte Esterase Large H (Negative) Urine RBC 3 (0-5) /hpf Urine WBC 17 H (0-5) /hpf Ur Squamous Epith Cells 16 H (0-4) /hpf Urine Mucus Rare H (None) /hpf Influenza Type A RNA Not Detected (Not Detectd) Influenza Type B (PCR) Not Detected (Not Detectd) 09/05/18 16:51 EKG shows sinus rhythm with sinus arrhythmia left axis deviation. Nonspecific ST and T wave abnormality. Abnormal EKG noted. Ventricular rate 75 bpm. CO interval is 154 ms. QS duration 72 ms. QT QTc is 426/475 ms. (Renuka Barraza) - Radiology Data Chest x-rays negative for any acute process. Marked osteopenia moderate bilateral hip O a. Chronic bony deformity in the medial inferior aspect of the right hip suspected to relate to the iliopsoas insertion. No fracture noted. Patient is not weightbearing MRI can be more sensitive. No acute intracranial abnormality seen. Stable moderate atrophy and marked included changed chronic small vessel ischemic disease. Stable probable 2.5 cm meningioma in the right frontal parietal junction. Old left insular lower lobe infarct. No acute fracture of the spine. Moderate to have spondylitic changes grade 1 spondylolisthesis from C4 to T1 levels. Multilevel mild spinal canal stenosis and variable moderate foraminal stenosis. Moderate to severe as outlined from C4-C5, C6-C7, C7-T1, T1-T2. (Renuka Barraza) Disposition <Renuka Barraza - Last Filed: 09/05/18 17:09> Is patient prescribed a controlled substance at d/c from ED?: No <Wade Handley - Last Filed: 09/05/18 18:33> Clinical Impression: Fall, UTI (urinary tract infection), Leukocytosis, Weakness, Elevated troponin Disposition: ADMITTED IP TO THIS HOSP Condition: Poor Referrals: Moe Hedrick MD [Primary Care Provider] - 1-2 days
[2018-09-05] MEDS ORDERED: POTASSIUM BICARBONATE/CIT AC 20 MEQ TABLET.EFF PO ONE (17:03)
[2018-09-05 17:21] LABS: Appearance,Urine Cloudy (Clear); Bilirubin,Urine Negative (Negative); Blood,Urine Trace (Negative); Color,Urine Yellow; Glucose,Urine (UA) Negative (Negative); Ketones,Urine Negative (Negative); Leukocyte Esterase,Urine Large (Negative); Mucus,Urine Rare /hpf; Nitrite,Urine Negative (Negative); PH, Urine 5.5 (5.0-8.0); Protein,Urine Trace (Negative); RBC,Urine 3 /hpf (0-5); Specific Gravity,Urine 1.018 (1.001-1.035); Squamous Epithelial Cell,Urine 16 /hpf (0-4); Urobilinogen,Urine <2.0 mg/dL (<2.0); WBC,Urine 17 /hpf (0-5)
[2018-09-05] MEDS ORDERED: ASPIRIN 81 MG PO STA (18:21)
[2018-09-05] MEDS ORDERED: NITROGLYCERIN SL TABS 0.4 MG TAB SUBLINGUAL PRN (18:21)
[2018-09-05] MEDS: SODIUM CHLORIDE 0.9% 1,000 ML IV SCH (19:00)
--- NOTE | 2018-09-05 22:09 | P.HPIM ---
History of Present Illness H&P Date: 09/05/18 Patient is an 88-year-old female with a PMH of hyperlipidemia, hypertension, and CVA/TIA who presented to the ED after a fall at home. The patient reports that she lives by herself and her daughter lives close by helps her with all her ADLs including shopping, cleaning around the house, laundry etc.. The patient reported that earlier today she had dropped a plate off the table and when she bent down to try and clean up, she felt dizzy and fell. She denied any loss of consciousness, proceeding chest pain, shortness of breath, palpitations, nausea, or weakness. She also denied any head trauma and noted that she was unable to get up so she crawled to her life alert and was able to activate the alarm and was subsequently brought to the ED. She otherwise reports that she had been in good health and had a good appetite. She also endorsed that she has been having increased urinary frequency for the past several months though denied dysuria, or hematuria. At the time of the interview, she reported feeling really tired due to the fall and having been brought to the emergency room. The patient also endorsed a right calf chronic pain ongoing for several months to years, unchanged. She further denied headaches, neck pain, weakness, numbness, chest pain, nausea, vomiting, abdominal pain, fever, chills, or cough. The patient reports that she would like to continue living at her home and feels that she is able to manage well with the help of her daughter. In the emergency room, the patient underwent an extensive evaluation, with a head and cervical spine CT which revealed no acute intracranial abnormalities. A pelvic x-ray revealed no fractures. Chest x-ray was unremarkable, troponins elevated at 0.07, EKG as reviewed by me showed a normal sinus rhythm at 75 bpm with sinus arrhythmia. A urinalysis revealed 17 WBCs w/ large LE. WBC count elevated at 17.3, hemoglobin 12.5, BUN 28, creatinine 0.96. The patient was subsequently admitted to the medicine service for fall, UTI, and elevated troponin. Review of Systems Pertinent positives and negatives as discussed in HPI, a complete review of systems was performed and all other systems are negative. Past Medical History Past Medical History: CVA/TIA, Dementia, Deep Vein Thrombosis (DVT), Hyperlipidemia, Hypertension, Memory Impairment, Pneumonia, Skin Disorder, Thyroid Disorder Additional Past Medical History / Comment(s): "memory problems" SINCE STROKE AND RT SIDE AFFECTED.DVT RT LEG History of Any Multi-Drug Resistant Organisms: ESBL Date of last positivie culture/infection: 04/05/17 MDRO Source:: ESBL URINE Past Surgical History: Appendectomy, Hysterectomy Additional Past Surgical History / Comment(s): colonosocpy Past Anesthesia/Blood Transfusion Reactions: No Reported Reaction Past Psychological History: No Psychological Hx Reported Smoking Status: Former smoker Past Alcohol Use History: None Reported Past Drug Use History: None Reported - Past Family History Father History Unknown: Yes Family Medical History: Unable to Obtain Mother History Unknown: Yes Family Medical History: Unable to Obtain Medications and Allergies Home Medications Medication Instructions Recorded Confirmed Type Donepezil [Aricept] 10 mg PO DAILY 12/11/13 09/05/18 History Levothyroxine Sodium [Levoxyl] 100 mcg PO DAILY 12/11/13 09/05/18 History Pravastatin Sodium [Pravachol] 10 mg PO HS 12/11/13 09/05/18 History amLODIPine [Norvasc] 5 mg PO DAILY 03/22/15 09/05/18 History Oxybutynin ER [Ditropan Xl] 10 mg PO DAILY 04/05/17 09/05/18 History Hydrochlorothiazide 12.5 mg PO DAILY 04/01/18 09/05/18 History Allergies Allergy/AdvReac Type Severity Reaction Status Date / Time colesevelam [From WelChol] Allergy Unknown Verified 09/05/18 16:56 Physical Exam Vitals: Vital Signs Temp Pulse Resp BP Pulse Ox 09/05/18 18:20 86 18 153/75 96 09/05/18 17:28 76 18 148/54 96 09/05/18 15:24 98.3 F 93 18 135/62 95 Intake and Output 09/05/18 09/05/18 09/05/18 06:59 14:59 22:59 Other: Weight 70.307 kg General: non toxic, no distress, appears at stated age, overweight Derm: no unusual rashes/lesions no unusual ecchymoses, warm, dry Head: atraumatic, normocephalic, symmetric Eyes: EOMI, no lid lag, anicteric sclera, pupils equal round reactive to light ENT: Nose and ears atraumatic, no thrush, no pharyngeal erythema Neck: No thyromegaly, no cervical lymphadenopathy, trachea midline, supple Mouth: no lip lesion, mucus membranes moist Cardiovascular: S1S2 reg, no murmur, positive posterior tibial pulse bilateral, 1+ bilateral lower extremity pitting edema, capillary refill less than 2 seconds Lungs: CTA bilateral, no rhonchi, no rales , no accessory muscle use Abdominal: soft, nontender to palpation, no guarding, no appreciable organomegaly, normal bowel sounds Ext: no gross muscle atrophy, muscle strength 4 out of 5 in all 4 extremities grossly, no contractures, mild right calf tenderness, no erythema or warmth noted Neuro: CN II-XI grossly intact, light touch intact all 4 extremities, finger to nose within normal limits, Psych: Alert, oriented to person, place, and time, appropriate affect Results CBC & Chem 7: 09/05/18 16:09/05/18 16: Labs: Abnormal Lab Results - Last 24 Hours (Table) 09/05/18 09/05/18 09/05/18 Range/Units 16: 16: 16:01 WBC 17.3 H (3.8-10.6) k/uL Neutrophils # 15.5 H (1.3-7.7) k/uL Lymphocytes # 0.8 L (1.0-4.8) k/uL APTT 21.3 L (22.0-30.0) sec Potassium 3.3 L (3.5-5.1) mmol/L BUN 28 H (7-17) mg/dL Glucose 122 H (74-99) mg/dL Troponin I (0.000-0.034) ng/mL Total Protein 6.2 L (6.3-8.2) g/dL Urine Appearance (Clear) Urine Protein (Negative) Urine Blood (Negative) Ur Leukocyte Esterase (Negative) Urine WBC (0-5) /hpf Ur Squamous Epith Cells (0-4) /hpf Urine Mucus (None) /hpf 09/05/18 09/05/18 Range/Units 16:01 16:27 WBC (3.8-10.6) k/uL Neutrophils # (1.3-7.7) k/uL Lymphocytes # (1.0-4.8) k/uL APTT (22.0-30.0) sec Potassium (3.5-5.1) mmol/L BUN (7-17) mg/dL Glucose (74-99) mg/dL Troponin I 0.070 H* (0.000-0.034) ng/mL Total Protein (6.3-8.2) g/dL Urine Appearance Cloudy H (Clear) Urine Protein Trace H (Negative) Urine Blood Trace H (Negative) Ur Leukocyte Esterase Large H (Negative) Urine WBC 17 H (0-5) /hpf Ur Squamous Epith Cells 16 H (0-4) /hpf Urine Mucus Rare H (None) /hpf Assessment and Plan Plan: Fall, possibly orthostatic in setting of UTI -Check orthostatic vital signs -Cardiac monitoring -PT consult -Fall precautions UTI -F/u urine cultures -C/w Ceftriaxone 1 g q24h Troponin elevation -Trend for now -Cardiac monitoring Hypokalemia -Replace and monitor BMP Prerenal azotemia, possibly due to dehydration -IV fluids Chronic conditions: Hyperlipidemia, hypertension -Resume home medications DVT//GI prophylaxis -Heparin -No indication for GI prophy The patient is admitted with an anticipated greater than 2 midnight stay for evaluation of fall/UTI. CODE STATUS:No Code Discussed with: Patient Anticipated discharge date: 09/07/[address]: Home A total of 40 minutes was spent on the care of this complex patient more than 50% of the time was spent in counseling and care coordination.
[2018-09-05 23:14] VITALS: BMI 26.4
[2018-09-05] MEDS ORDERED: HEPARIN SOD,PORK IN 0.45% NACL 25,000 UNIT in 0.45% NACL 1 250ML.BAG IV SCH (23:45)
[2018-09-05] MEDS ORDERED: HEPARIN SODIUM,PORCINE 5,000 UNIT/ML 1 ML VIAL IV PRN (23:54)
[2018-09-06 01:21] LABS: Basophils # (A) 0.1 k/uL (0-0.2); Basophils % (A) 1 %; Eosinophils # (A) 0.3 k/uL (0-0.7); Eosinophils % (A) 4 %; HCT 33.2 % (34.0-46.0); HGB 11.6 gm/dL (11.4-16.0); Lymphocytes # (A) 1.3 k/uL (1.0-4.8); Lymphocytes % (A) 16 %; MCH 30.8 pg (25.0-35.0); MCV 88.2 fL (80.0-100.0); Monocytes # (A) 0.4 k/uL (0-1.0); Monocytes % (A) 5 %; Neutrophils # (A) 6.1 k/uL (1.3-7.7); Neutrophils % (A) 74 %; Platelet Count 191 k/uL (150-450); RBC 3.76 m/uL (3.80-5.40); WBC 8.3 k/uL (3.8-10.6)
[2018-09-06] MEDS ORDERED: HEPARIN SODIUM,PORCINE 5,000 UNIT/ML 1 ML VIAL IV ONE (01:30)
[2018-09-06 01:42] LABS: Prothrombin Time 10.4 sec (9.0-12.0)
[2018-09-06 02:13] LABS: Appearance,Urine Clear (Clear); Bilirubin,Urine Negative (Negative); Blood,Urine Negative (Negative); Color,Urine Light Yellow; Glucose,Urine (UA) Negative (Negative); Ketones,Urine Negative (Negative); Leukocyte Esterase,Urine Negative (Negative); Nitrite,Urine Negative (Negative); Protein,Urine Negative (Negative); Specific Gravity,Urine 1.009 (1.001-1.035); Urobilinogen,Urine <2.0 mg/dL (<2.0)
[2018-09-06] MEDS: SODIUM CHLORIDE 0.9% 1,000 ML IV SCH ×2 (04:31→18:57)
[2018-09-06 04:42] LABS: Basophils % (A) 1 %; Eosinophils # (A) 0.4 k/uL (0-0.7); Eosinophils % (A) 5 %; HCT 32.5 % (34.0-46.0); HGB 11.2 gm/dL (11.4-16.0); Lymphocytes # (A) 1.4 k/uL (1.0-4.8); Lymphocytes % (A) 17 %; MCH 30.6 pg (25.0-35.0); MCHC 34.4 g/dL (31.0-37.0); MCV 89.2 fL (80.0-100.0); Mean Platelet Volume 7.2; Monocytes # (A) 0.5 k/uL (0-1.0); Monocytes % (A) 5 %; Neutrophils % (A) 71 %; Platelet Count 186 k/uL (150-450); RBC 3.65 m/uL (3.80-5.40); RDW 14.3 % (11.5-15.5); WBC 8.4 k/uL (3.8-10.6)
[2018-09-06 04:59] LABS: Calcium 8.7 mg/dL (8.4-10.2); Potassium 3.4 mmol/L (3.5-5.1)
[2018-09-06] MEDS: LEVOTHYROXINE 100 MCG TAB PO SCH (06:12)
[2018-09-06] MEDS ORDERED: HEPARIN SODIUM,PORCINE 5,000 UNIT/ML 1 ML VIAL SQ SCH (09:00)
[2018-09-06] MEDS: ASPIRIN 325 MG TAB PO SCH (09:03)
[2018-09-06] MEDS: amLODIPine 5 MG TAB PO SCH (09:03)
--- NOTE | 2018-09-06 09:36 | P.PN ---
Subjective Progress Note Date: 09/06/18 Patient is doing fairly well today. She is awake and alert. She denies any chest pain. No acute events overnight reported to be my nursing staff. Objective - Vital Signs Vital signs: Vital Signs Temp 98.6 F 09/06/18 04:00 Pulse 73 09/06/18 04:00 Resp 15 09/06/18 04:00 BP 122/63 09/06/18 04:00 Pulse Ox 96 09/06/18 04:00 Intake & Output 09/05/18 09/06/18 09/06/18 18:59 06:59 18:59 Intake Total 48.513 Output Total 1000 Balance -1000 48.513 Weight 70.307 kg Intake: Intake, IV Titration 48.513 Amount Heparin Sod,Pork in 0.45% 48.513 NaCl 25,000 unit In 0.45 % NaCl 1 250ml.bag @ 12 UNITS/KG/HR 8.437 mls/hr IV .Q24H MATT Rx#: [id number] Output: Urine 1000 Other: # Voids 1 - Exam General: The patient is awake and alert, in no distress Eye: there is normal conjunctiva bilaterally. Neck: The neck is supple, there is no JVD. Cardiovascular: Normal S1-S2, no S3-S4, no murmurs. Respiratory: Lungs clear to auscultation bilaterally Gastrointestinal: Abdomen is soft, nontender Musculoskeletal: There is no pedal edema. Neurological:. Speech is normal. Skin: Skin is warm and dry - Labs CBC & Chem 7: 09/06/18 03:33 09/06/18 03:33 Labs: Abnormal Lab Results - Last 24 Hours (Table) 09/05/18 09/05/18 09/05/18 Range/Units 16:01 16:01 16:01 WBC 17.3 H (3.8-10.6) k/uL RBC (3.80-5.40) m/uL Hgb (11.4-16.0) gm/dL Hct (34.0-46.0) % Neutrophils # 15.5 H (1.3-7.7) k/uL Lymphocytes # 0.8 L (1.0-4.8) k/uL APTT 21.3 L (22.0-30.0) sec Potassium 3.3 L (3.5-5.1) mmol/L Chloride (98-107) mmol/L BUN 28 H (7-17) mg/dL Glucose 122 H (74-99) mg/dL Troponin I (0.000-0.034) ng/mL Total Protein 6.2 L (6.3-8.2) g/dL HDL Cholesterol (40-60) mg/dL Urine Appearance (Clear) Urine Protein (Negative) Urine Blood (Negative) Ur Leukocyte Esterase (Negative) Urine WBC (0-5) /hpf Ur Squamous Epith Cells (0-4) /hpf Urine Mucus (None) /hpf 09/05/18 09/05/18 09/05/18 Range/Units 16:01 16:27 22:19 WBC (3.8-10.6) k/uL RBC (3.80-5.40) m/uL Hgb (11.4-16.0) gm/dL Hct (34.0-46.0) % Neutrophils # (1.3-7.7) k/uL Lymphocytes # (1.0-4.8) k/uL APTT (22.0-30.0) sec Potassium (3.5-5.1) mmol/L Chloride (98-107) mmol/L BUN (7-17) mg/dL Glucose (74-99) mg/dL Troponin I 0.070 H* 0.249 H* (0.000-0.034) ng/mL Total Protein (6.3-8.2) g/dL HDL Cholesterol (40-60) mg/dL Urine Appearance Cloudy H (Clear) Urine Protein Trace H (Negative) Urine Blood Trace H (Negative) Ur Leukocyte Esterase Large H (Negative) Urine WBC 17 H (0-5) /hpf Ur Squamous Epith Cells 16 H (0-4) /hpf Urine Mucus Rare H (None) /hpf 09/06/18 09/06/18 09/06/18 Range/Units 01:07 03:33 03:33 WBC (3.8-10.6) k/uL RBC 3.76 L (3.80-5.40) m/uL Hgb (11.4-16.0) gm/dL Hct 33.2 L (34.0-46.0) % Neutrophils # (1.3-7.7) k/uL Lymphocytes # (1.0-4.8) k/uL APTT (22.0-30.0) sec Potassium 3.4 L (3.5-5.1) mmol/L Chloride 108 H (98-107) mmol/L BUN 18 H (7-17) mg/dL Glucose 102 H (74-99) mg/dL Troponin I 0.196 H* (0.000-0.034) ng/mL Total Protein (6.3-8.2) g/dL HDL Cholesterol 65 H (40-60) mg/dL Urine Appearance (Clear) Urine Protein (Negative) Urine Blood (Negative) Ur Leukocyte Esterase (Negative) Urine WBC (0-5) /hpf Ur Squamous Epith Cells (0-4) /hpf Urine Mucus (None) /hpf 09/06/18 09/06/18 Range/Units 03:33 04:14 WBC (3.8-10.6) k/uL RBC 3.65 L (3.80-5.40) m/uL Hgb 11.2 L (11.4-16.0) gm/dL Hct 32.5 L (34.0-46.0) % Neutrophils # (1.3-7.7) k/uL Lymphocytes # (1.0-4.8) k/uL APTT 140.6 H* (22.0-30.0) sec Potassium (3.5-5.1) mmol/L Chloride (98-107) mmol/L BUN (7-17) mg/dL Glucose (74-99) mg/dL Troponin I (0.000-0.034) ng/mL Total Protein (6.3-8.2) g/dL HDL Cholesterol (40-60) mg/dL Urine Appearance (Clear) Urine Protein (Negative) Urine Blood (Negative) Ur Leukocyte Esterase (Negative) Urine WBC (0-5) /hpf Ur Squamous Epith Cells (0-4) /hpf Urine Mucus (None) /hpf Assessment and Plan Assessment: Fall, possibly orthostatic in setting of UTI -Patient is being getting IV fluid hydration. I ordered orthostatic blood pressure this morning. -Cardiac monitoring -PT consult -Fall precautions UTI -F/u urine and blood cultures -C/w Ceftriaxone 1 g q24h Troponin elevation -Trending down. Most likely non-thrombotic troponin leak. Cardiology consulted. Patient is currently on IV heparin which I believe can be safely discontinued awaiting cardiology evaluation. -Cardiac monitoring Hypokalemia -Replaced awaiting repeat BMP Prerenal azotemia, possibly due to dehydration -IV fluids Chronic conditions: Hyperlipidemia, hypertension, underlying cognitive impairment/dementia -Resume home medications DVT//GI prophylaxis -Heparin -No indication for GI prophy
[2018-09-06] MEDS: OXYBUTYNIN 10 MG TAB.ER.24 PO SCH (09:43)
[2018-09-06] MEDS: DONEPEZIL 10 MG TAB PO SCH (09:43)
--- NOTE | 2018-09-06 12:54 | P.CRDCN ---
History of Present Illness History of present illness: This is Dr. Horowitz dictating a consult on this patient The patient was interviewed and examined by me IMPRESSION / ASSESSMENT: Borderline abnormal troponins after a fall. No syncope nonspecific ST changes History of hypertension PLAN: Check CPK patient was on the floor for several hours 81 mg of aspirin, atorvastatin 20 mg by mouth daily Stop IV heparin Low-dose beta blockers 2.5 mg twice daily Medical management Please call us as needed HPI 88-year-old female who fell in the kitchen. She was sitting on the floor for 3 hours. She denied any chest discomfort prior to the fall. She states she was bending over picking up a broken glass and she got dizzy and fell. She does fe el very tired ROS: No fever chills or rigors, no cough, phlegm or expectoration, no nausea, vomiting or diarrhea, no hematuria, dysuria, no musculoskeletal complaints, no strokes or seizures, no skin lesions. EXAMINATION: On examination blood pressure 122 6 3 mmHg heart rate is in the 60s and 70s afebrile Breath sounds are reduced bilaterally but no rhonchi no crackles Heart sounds S1-S2 are normal Abdomen soft Eccentric days are warm REVIEW OF LABS, ECG & MEDICAL DATA twelve-lead ECG shows sinus rhythm left axis deviation and nonspecific ST-T abnormalities Troponins are borderline and with a flat trend Hemoglobin 11.2 Potassium 3.4 BUN 18 creatinine 0.74 Troponins 0.2 and 0.19 LDL 67 Past Medical History Past Medical History: CVA/TIA, Dementia, Deep Vein Thrombosis (DVT), Hyperlipidemia, Hypertension, Memory Impairment, Pneumonia, Skin Disorder, Thyroid Disorder Additional Past Medical History / Comment(s): "memory problems" SINCE STROKE AND RT SIDE AFFECTED.DVT RT LEG History of Any Multi-Drug Resistant Organisms: ESBL Date of last positivie culture/infection: 04/05/17 MDRO Source:: ESBL URINE Past Surgical History: Appendectomy, Hysterectomy Additional Past Surgical History / Comment(s): colonosocpy Past Anesthesia/Blood Transfusion Reactions: No Reported Reaction Past Psychological History: No Psychological Hx Reported Additional Psychological History / Comment(s): Patient resides in [facility] ,uses walker when up Smoking Status: Former smoker Past Alcohol Use History: None Reported Additional Past Alcohol Use History / Comment(s): started smoking 1947 and quit 1995 smoked 1ppd. Past Drug Use History: None Reported - Past Family History Father History Unknown: Yes Family Medical History: Unable to Obtain Mother History Unknown: Yes Family Medical History: Unable to Obtain Medications and Allergies Home Medications Medication Instructions Recorded Confirmed Type RX: Donepezil [Aricept] 10 mg PO DAILY 12/11/13 09/05/18 History RX: Levothyroxine Sodium [Levoxyl] 100 mcg PO DAILY 12/11/13 09/05/18 History RX: Pravastatin Sodium [Pravachol] 10 mg PO HS 12/11/13 09/05/18 History amLODIPine [Norvasc] 5 mg PO DAILY 03/22/15 09/05/18 History RX: Oxybutynin ER [Ditropan Xl] 10 mg PO DAILY 04/05/17 09/05/18 History RX: Hydrochlorothiazide 12.5 mg PO DAILY 04/01/18 09/05/18 History Allergies Allergy/AdvReac Type Severity Reaction Status Date / Time colesevelam [From WelChol] Allergy Unknown Verified 09/05/18 16:56 Physical Exam Vitals: Vital Signs Temp Pulse Pulse Resp BP BP Pulse Ox 09/06/18 08:00 97.6 F 66 19 144/80 95 09/06/18 04:00 98.6 F 73 15 122/63 96 09/06/18 01:36 98.6 F 66 15 133/59 97 09/06/18 00:00 66 15 09/05/18 23:02 98.3 F 68 15 158/87 95 09/05/18 20:00 66 15 09/05/18 18:20 86 18 153/75 96 09/05/18 17:28 76 18 148/54 96 09/05/18 15:24 98.3 F 93 18 135/62 95 Intake and Output 09/05/18 09/06/18 09/06/18 22:59 06:59 14:59 Intake Total 698.513 Output Total 1000 600 Balance -1000 98.513 Intake: IV 650 Sodium Chloride 0.9% 1, 600 000 ml @ 100 mls/hr IV . Q10H [facility] Rx#:[id number] cefTRIAXone 1 gm In 50 Sodium Chloride 0.9% 50 ml @ 100 mls/hr IVPB Q24HR [facility] Rx#:[id number] Intake, IV Titration 48.513 Amount Heparin Sod,Pork in 0.45% 48.513 NaCl 25,000 unit In 0.45 % NaCl 1 250ml.bag @ 12 UNITS/KG/HR 8.437 mls/hr IV .Q24H [facility] Rx#: [id number] Output: Urine 1000 600 Other: # Voids 1 1 Weight 70.307 kg Results 09/06/18 03:33 09/06/18 03:33 Cardiac Enzymes 09/05/18 09/05/18 09/05/18 Range/Units 16:01 16:01 22:19 AST 26 (14-36) U/L Troponin I 0.070 H* 0.249 H* (0.000-0.034) ng/mL 09/06/18 Range/Units 03:33 AST (14-36) U/L Troponin I 0.196 H* (0.000-0.034) ng/mL Coagulation 09/05/18 09/06/18 09/06/18 Range/Units 16:01 01:07 04:14 PT 10.2 10.4 (9.0-12.0) sec APTT 21.3 L 23.0 140.6 H* (22.0-30.0) sec Lipids 09/06/18 Range/Units 03:33 Triglycerides 45 (<150) mg/dL Cholesterol 141 (<200) mg/dL HDL Cholesterol 65 H (40-60) mg/dL CBC 09/05/18 09/06/18 09/06/18 Range/Units 16:01 01:07 03:33 WBC 17.3 H 8.3 8.4 (3.8-10.6) k/uL RBC 4.11 3.76 L 3.65 L (3.80-5.40) m/uL Hgb 12.1 11.6 11.2 L (11.4-16.0) gm/dL Hct 36.4 33.2 L 32.5 L (34.0-46.0) % Plt Count 189 191 186 (150-450) k/uL Comprehensive Metabolic Panel 09/05/18 09/06/18 Range/Units 16:01 03:33 Sodium 139 140 (137-145) mmol/L Potassium 3.3 L 3.4 L (3.5-5.1) mmol/L Chloride 104 108 H (98-107) mmol/L Carbon Dioxide 26 28 (22-30) mmol/L BUN 28 H 18 H (7-17) mg/dL Creatinine 0.96 0.74 (0.52-1.04) mg/dL Glucose 122 H 102 H (74-99) mg/dL Calcium 9.4 8.7 (8.4-10.2) mg/dL AST 26 (14-36) U/L ALT 22 (9-52) U/L Alkaline Phosphatase 60 (38-126) U/L Total Protein 6.2 L (6.3-8.2) g/dL Albumin 3.5 (3.5-5.0) g/dL Current Medications Generic Name Dose Route Start Last Admin Trade Name Freq PRN Reason Stop Dose Admin Amlodipine Besylate 5 mg 09/06/18 09:00 09/06/18 09:03 Norvasc PO 5 mg DAILY [facility] Administration Aspirin 325 mg 09/06/18 09:00 09/06/18 09:03 Aspirin PO 325 mg DAILY [facility] Administration Donepezil HCl 10 mg 09/06/18 09:00 09/06/18 09:43 Aricept PO 10 mg DAILY [facility] Administration Heparin Sodium (Porcine) 0 unit 09/05/18 23:54 Heparin IV PER PROTOCOL PRN Low PTT Protocol Ceftriaxone Sodium 1 gm/ 50 mls @ 100 mls/hr 09/06/18 09:00 09/06/18 09:43 Sodium Chloride IVPB 100 mls/hr Q24HR [facility] Administration Sodium Chloride 1,000 mls @ 100 mls/hr 09/05/18 18:30 09/06/18 04:31 Saline 0.9% IV 100 mls/hr .Q10H [facility] Administration Heparin Sodium/Sodium Chloride 250 mls @ 8.437 mls/hr 09/05/18 23:45 09/06/18 08:49 25,000 unit/ Sodium Chloride IV 9 units/kg/hr .Q24H [facility] 6.328 mls/hr Titration Protocol 12 UNITS/KG/HR Levothyroxine Sodium 100 mcg 09/06/18 06:30 09/06/18 06:12 Synthroid PO 100 mcg DAILY@0630 [facility] Administration Nitroglycerin 0.4 mg 09/05/18 18:21 Nitrostat SUBLINGUAL Q5M PRN Chest Pain Oxybutynin Chloride 10 mg 09/06/18 09:00 09/06/18 09:43 Ditropan Xl PO 10 mg DAILY [facility] Administration Pravastatin Sodium 10 mg 09/06/18 21:00 Pravachol PO HS [facility] Intake and Output 09/05/18 09/06/18 09/06/18 22:59 06:59 14:59 Intake Total 698.513 Output Total 1000 600 Balance -1000 98.513 Intake: IV 650 Sodium Chloride 0.9% 1, 600 000 ml @ 100 mls/hr IV . Q10H [facility] Rx#:[id number] cefTRIAXone 1 gm In 50 Sodium Chloride 0.9% 50 ml @ 100 mls/hr IVPB Q24HR [facility] Rx#:[id number] Intake, IV Titration 48.513 Amount Heparin Sod,Pork in 0.45% 48.513 NaCl 25,000 unit In 0.45 % NaCl 1 250ml.bag @ 12 UNITS/KG/HR 8.437 mls/hr IV .Q24H [facility] Rx#: [id number] Output: Urine 1000 600 Other: # Voids 1 1 Weight 70.307 kg 09/06/18 03:33 09/06/18 03:33
[2018-09-06] MEDS: METOPROLOL TARTRATE 12.5 MG TAB PO SCH (20:27)
[2018-09-06] MEDS ORDERED: PRAVASTATIN SODIUM 20 MG TAB PO SCH (21:00)
[2018-09-07] MEDS: SODIUM CHLORIDE 0.9% 1,000 ML IV SCH ×2 (03:30→13:36)
[2018-09-07] MEDS: LEVOTHYROXINE 100 MCG TAB PO SCH (06:17)
[2018-09-07 06:25] LABS: Basophils # (A) 0.1 k/uL (0-0.2); Basophils % (A) 1 %; Eosinophils # (A) 0.7 k/uL (0-0.7); Eosinophils % (A) 9 %; HCT 32.3 % (34.0-46.0); HGB 10.8 gm/dL (11.4-16.0); Lymphocytes # (A) 1.1 k/uL (1.0-4.8); Lymphocytes % (A) 14 %; MCH 29.4 pg (25.0-35.0); MCHC 33.5 g/dL (31.0-37.0); MCV 87.6 fL (80.0-100.0); Mean Platelet Volume 9.3; Monocytes # (A) 0.4 k/uL (0-1.0); Monocytes % (A) 6 %; Neutrophils # (A) 5.4 k/uL (1.3-7.7); Neutrophils % (A) 70 %; Platelet Count 179 k/uL (150-450); RBC 3.69 m/uL (3.80-5.40); RDW 15.9 % (11.5-15.5); WBC 7.8 k/uL (3.8-10.6)
[2018-09-07 07:16] LABS: Calcium 8.5 mg/dL (8.4-10.2); Potassium 3.4 mmol/L (3.5-5.1)
[2018-09-07] MEDS ORDERED: Potassium Replacement Protocol 1 EACH MISC MISCELLANE PRN ×2 (07:36→11:24)
[2018-09-07] MEDS: ATORVASTATIN 20 MG TAB PO SCH (09:45)
[2018-09-07] MEDS: METOPROLOL TARTRATE 12.5 MG TAB PO SCH ×2 (09:45→21:23)
[2018-09-07] MEDS: amLODIPine 5 MG TAB PO SCH (09:45)
[2018-09-07] MEDS: ASPIRIN 325 MG TAB PO SCH (09:45)
[2018-09-07] MEDS: OXYBUTYNIN 10 MG TAB.ER.24 PO SCH (09:46)
[2018-09-07] MEDS: DONEPEZIL 10 MG TAB PO SCH (09:46)
[2018-09-07 11:00] LABS: Creatine Kinase MB 5.3 ng/mL (0.0-2.4)
[2018-09-07 11:18] LABS: Troponin I 0.082 ng/mL (0.000-0.034)
[2018-09-07] MEDS: POTASSIUM CHLORIDE ER 20 MEQ TAB.ER PO SCH ×2 (13:33→16:28)
--- NOTE | 2018-09-07 13:36 | P.PN ---
Subjective Progress Note Date: 09/07/18 Principal diagnosis: Post fall Patient was seen and examined. No acute events overnight. Patient reports no symptoms this morning. She denies any dysuria. She denies any chest pain, shortness of breath or palpitations. Ambulated hallways with assistance of PT. States that she lives alone, daughter comes daily to help. Objective - Vital Signs Vital signs: Vital Signs Temp 98.4 F 09/07/18 08:00 Pulse 72 09/07/18 10:00 Resp 24 09/07/18 10:00 BP 168/73 09/07/18 10:00 Pulse Ox 93 L 09/07/18 10:00 Intake & Output 09/06/18 09/07/18 09/07/18 18:59 06:59 18:59 Intake Total 427.313 0063 Output Total 600 500 Balance 98.513 1050 Weight 68.9 kg Intake: IV 650 1550 Sodium Chloride 0.9% 1, 600 1550 000 ml @ 100 mls/hr IV . Q10H [facility] Rx#:[id number] cefTRIAXone 1 gm In 50 Sodium Chloride 0.9% 50 ml @ 100 mls/hr IVPB Q24HR [facility] Rx#:[id number] Intake, IV Titration 48.513 Amount Heparin Sod,Pork in 0.45% 48.513 NaCl 25,000 unit In 0.45 % NaCl 1 250ml.bag @ 12 UNITS/KG/HR 8.437 mls/hr IV .Q24H [facility] Rx#: [id number] Output: Urine 600 500 Other: Voiding Method Bedside Commode Bedside Commode # Voids 1 - Exam General: [non toxic], [no distress], [appears at stated age] Derm: [warm], [dry] Head: [atraumatic], [normocephalic], [symmetric] Eyes: [EOMI], [no lid lag], [anicteric sclera] Mouth: [no lip lesion], [mucus membranes moist] Cardiovascular: [S1S2 reg], [no murmur], [positive DP pulse bilateral] Lungs: [CTA bilateral], [no rhonchi, no rales] , [no accessory muscle use] Abdominal: [soft], [ nontender to palpation], [no guarding], [no appreciable organomegaly] Ext: [no gross muscle atrophy], [no edema], [no contractures] Neuro: [no focal neuro deficits] Psych: [Alert], [oriented], [appropriate affect] - Labs CBC & Chem 7: 09/07/18 05:04 09/07/18 05:04 Labs: Abnormal Lab Results - Last 24 Hours (Table) 09/06/18 09/07/18 09/07/18 Range/Units 13:21 05:04 05:04 RBC 3.69 L (3.80-5.40) m/uL Hgb 10.8 L (11.4-16.0) gm/dL Hct 32.3 L (34.0-46.0) % RDW 15.9 H (11.5-15.5) % Potassium 3.4 L (3.5-5.1) mmol/L Chloride 108 H (98-107) mmol/L Total Creatine Kinase (30-135) U/L CK-MB (CK-2) 4.3 H (0.0-2.4) ng/mL Troponin I (0.000-0.034) ng/mL 09/07/18 Range/Units 05:04 RBC (3.80-5.40) m/uL Hgb (11.4-16.0) gm/dL Hct (34.0-46.0) % RDW (11.5-15.5) % Potassium (3.5-5.1) mmol/L Chloride (98-107) mmol/L Total Creatine Kinase 676 H (30-135) U/L CK-MB (CK-2) 5.3 H (0.0-2.4) ng/mL Troponin I 0.082 H* (0.000-0.034) ng/mL Microbiology - Last 24 Hours (Table) 09/05/18 11:41 Blood Culture - Preliminary Blood No Growth after 24 hours Assessment and Plan Assessment: Assessment and Plan Mechanical fall Hypokalemia Asymptomatic bacteriuria Troponin elevation Elevated CPK Hypertension Hypothyroidism Patient states that she was bent over trying to forklift picker broken glass when she f ell. CT brain negative for acute process. CT C-spine showing spinal canal stenosis. Physical therapy and occupational therapy recommending continued therapy while inpatient. Fall precautions. Follow PT and OT recommendations. Potassium 3.4 this morning. Replace via protocol. Daily BMP. Urinalysis negative for UTI. Urine culture not done. Patient asymptomatic. DC Rocephin Troponin 0.7, 0.249, 0.196, 0.082, EKG showing normal sinus rhythm with sinus arrhythmia and nonspecific ST and T-wave changes. Initially started on heparin drip which was discontinued by cardiology. Cardiology consulted, recommends low-dose beta leticia and check CPK as patient was on the floor for several hours. Continue aspirin and Lipitor. Continue beta leticia. Telemetry monitoring. Follow-up echocardiogram. CPK elevated at 676. Renal function within normal limits. Continue normal saline at 100 mL/h. Repeat CPK in the AM. BP 168/73. Continue metoprolol. Monitor vitals, adjust medications as ne cessary. Stable. Continue Synthroid. Patient admitted after mechanical fall, found to have elevated troponins. She continues to work with physical therapy. Cardiology on board for troponin elevation. Likely DC in 1-2 days.
--- NOTE | 2018-09-07 14:04 | ECHOF ---
Referral Reason:Fall MEASUREMENTS -------- HEIGHT: 162.6 cm WEIGHT: 68.5 kg BP: 149/72 RVIDd: 2.7 cm (< 3.3) IVSd: 1.0 cm (0.6 - 1.1) LVIDd: 4.4 cm (3.9 - 5.3) LVPWd: 1.1 cm (0.6 - 1.1) IVSs: 1.6 cm LVIDs: 2.8 cm LVPWs: 1.4 cm LA Diam: 3.6 cm (2.7 - 3.8) LAESV Index (A-L): 33.77 ml/m Ao Diam: 3.1 cm (2.0 - 3.7) AV Cusp: 1.9 cm (1.5 - 2.6) MV EXCURSION: 14.317 mm (> 18.000) MV EF SLOPE: 44 mm/s (70 - 150) EPSS: 0.6 cm MV E Stalin: 1.10 m/s MV DecT: 188 ms MV A Stalin: 1.40 m/s MV E/A Ratio: 0.78 AV maxP.13 mmHg AV meanP.98 mmHg RAP: 5.00 mmHg RVSP: 25.88 mmHg FINDINGS -------- Sinus rhythm. This was a technically adequate study. The left ventricular size is normal. There is borderline concentric left ventricular hypertrophy. Overall left ventricular systolic function is normal with, an EF between 55 - 60 %. The right ventricle is normal in size. LA is midly dilated 29-33ml/m2. The right atrium is normal in size. There is mild aortic valve sclerosis. The mitral valve leaflets are mildly thickened. Mild mitral annular calcification present. Mild tricuspid regurgitation present. Right ventricular systolic pressure is normal at < 35 mmHg. Trace/mild (physiologic) pulmonic regurgitation. The aortic root size is normal. Normal inferior vena cava with normal inspiratory collapse consistent with estimated right atrial pre ssure of 5 mmHg. There is a trivial pericardial effusion present. CONCLUSIONS -------- 1. Sinus rhythm. 2. This was a technically adequate study. 3. The left ventricular size is normal. 4. There is borderline concentric left ventricular hypertrophy. 5. Overall left ventricular systolic function is normal with, an EF between 55 - 60 %. 6. The right ventricle is normal in size. 7. LA is midly dilated 29-33ml/m2. 8. The right atrium is normal in size. 9. There is mild aortic valve sclerosis. 10. The mitral valve leaflets are mildly thickened. 11. Mild mitral annular calcification present. 12. Mild tricuspid regurgitation present. 13. Right ventricular systolic pressure is normal at < 35 mmHg. 14. Trace/mild (physiologic) pulmonic regurgitation. 15. The aortic root size is normal. 16. Normal inferior vena cava with normal inspiratory collapse consistent with estimated right atrial pressure of 5 mmHg. 17. There is a trivial pericardial effusion present. DENTAL COORDINATOR: Doinna Luque RDCS
[2018-09-08] MEDS: SODIUM CHLORIDE 0.9% 1,000 ML IV SCH ×3 (00:52→20:02)
[2018-09-08] MEDS: LEVOTHYROXINE 100 MCG TAB PO SCH (06:06)
[2018-09-08 07:07] LABS: Anisocytosis Slight; Basophils % (A) 1 %; Eosinophils # (A) 0.7 k/uL (0-0.7); Eosinophils % (A) 10 %; HGB 10.6 gm/dL (11.4-16.0); Lymphocytes # (A) 1.5 k/uL (1.0-4.8); Lymphocytes % (A) 20 %; MCH 29.9 pg (25.0-35.0); MCHC 34.3 g/dL (31.0-37.0); MCV 87.3 fL (80.0-100.0); Mean Platelet Volume 9.6; Monocytes # (A) 0.6 k/uL (0-1.0); Monocytes % (A) 7 %; Neutrophils # (A) 4.7 k/uL (1.3-7.7); Neutrophils % (A) 61 %; Platelet Count 165 k/uL (150-450); RBC 3.55 m/uL (3.80-5.40); RDW 16.3 % (11.5-15.5); WBC 7.7 k/uL (3.8-10.6)
[2018-09-08 07:18] LABS: Calcium 8.4 mg/dL (8.4-10.2); Potassium 3.5 mmol/L (3.5-5.1)
[2018-09-08] MEDS: METOPROLOL TARTRATE 12.5 MG TAB PO SCH ×2 (09:23→20:00)
[2018-09-08] MEDS: ATORVASTATIN 20 MG TAB PO SCH (09:24)
[2018-09-08] MEDS: DONEPEZIL 10 MG TAB PO SCH (09:24)
[2018-09-08] MEDS: OXYBUTYNIN 10 MG TAB.ER.24 PO SCH (09:24)
[2018-09-08] MEDS: amLODIPine 5 MG TAB PO SCH (09:24)
[2018-09-08] MEDS: ASPIRIN 325 MG TAB PO SCH (09:24)
--- NOTE | 2018-09-08 13:57 | P.PN ---
Subjective Progress Note Date: 09/08/18 Principal diagnosis: fall patient was seen and examined. No acute events overnight. Patient reports no complaints this morning. She denies any chest pain, shortness of breath or palpitations. No fever or chills. No nausea or vomiting. Tolerating her diet well. Patient reports to be wobbly and unstable on her feet. Patient states that she lives alone but her daughter comes daily to help her with cooking and cleaning. Objective - Vital Signs Vital signs: Vital Signs Temp 98.2 F 09/08/18 08:00 Pulse 70 09/08/18 08:00 Resp 16 09/08/18 08:00 BP 163/76 09/08/18 08:00 Pulse Ox 96 09/08/18 08:00 Intake & Output 09/07/18 09/08/18 09/08/18 18:59 06:59 18:59 Intake Total 440 240 Balance 440 240 Intake: IV 200 cefTRIAXone 1 gm In 200 Sodium Chloride 0.9% 50 ml @ 100 mls/hr IVPB Q24HR [facility] Rx#:[id number] Oral 240 240 Other: Voiding Method Bedside Commode Toilet # Voids 3 3 - Exam General: [non toxic], [no distress], [appears at stated age] Derm: [warm], [dry] Head: [atraumatic], [normocephalic], [symmetric] Eyes: [EOMI], [no lid lag], [anicteric sclera] Mouth: [no lip lesion], [mucus membranes moist] Cardiovascular: [S1S2 reg], [no murmur], [positive DP pulse bilateral] Lungs: [CTA bilateral], [no rhonchi, no rales] , [no accessory muscle use] Abdominal: [soft], [ nontender to palpation], [no guarding], [no appreciable organomegaly] Ext: [no gross muscle atrophy], [no edema], [no contractures] Neuro: [no focal neuro deficits] Psych: [Alert], [oriented], [appropriate affect] - Labs CBC & Chem 7: 09/08/18 06:30 09/08/18 06:30 Labs: Abnormal Lab Results - Last 24 Hours (Table) 09/08/18 09/08/18 Range/Units 06:30 06:30 RBC 3.55 L (3.80-5.40) m/uL Hgb 10.6 L (11.4-16.0) gm/dL Hct 31.0 L (34.0-46.0) % RDW 16.3 H (11.5-15.5) % Chloride 110 H (98-107) mmol/L Microbiology - Last 24 Hours (Table) 09/05/18 11:41 Blood Culture - Preliminary Blood No Growth after 48 hours Assessment and Plan Assessment: Assessment and Plan Mechanical fall Asymptomatic bacteriuria Troponin elevation Elevated CPK Hypertension Hypothyroidism Patient states that she was bent over trying to pick and shovel man broken glass when she fell. CT brain negative for acute process. CT C-spine showing spinal canal stenosis. Physical therapy and occupational therapy recommending continued therapy while inpatient. Fall precautions. Follow PT and OT recommendations. Urinalysis negative for UTI. Urine culture not done. Patient asymptomatic. DC Rocephin Troponin 0.7, 0.249, 0.196, 0.082, EKG showing normal sinus rhythm with sinus arrhythmia and nonspecific ST and T-wave changes. Initially started on heparin drip which was discontinued by cardiology. Cardiology consulted, recommends low-dose beta leticia and check CPK as patient was on the floor for several hours. Continue aspirin and Lipitor. Continue beta leticia. Telemetry monitoring. echo shows borderline concentric LVH with EF 55-60%. CPK elevated at 676. Renal function within normal limits. Continue normal saline at 100 mL/h. Repeat CPK in the AM. BP 163/76. Continue metoprolol. Monitor vitals, adjust medications as necessary. Stable. Continue Synthroid. Patient to be evaluated by physical therapy tomorrow regarding her physical ability. Patient does live aloneand I would want to make sure that it will be s afe to discharge her home with possible home PT. Likely DC tomorrow.
[2018-09-09] MEDS: SODIUM CHLORIDE 0.9% 1,000 ML IV SCH ×3 (03:20→19:42)
[2018-09-09] MEDS: LEVOTHYROXINE 100 MCG TAB PO SCH (05:43)
[2018-09-09 06:57] LABS: Basophils # (A) 0.1 k/uL (0-0.2); Basophils % (A) 1 %; Eosinophils # (A) 0.6 k/uL (0-0.7); Eosinophils % (A) 9 %; HCT 32.7 % (34.0-46.0); HGB 10.8 gm/dL (11.4-16.0); Lymphocytes # (A) 1.7 k/uL (1.0-4.8); Lymphocytes % (A) 26 %; MCH 29.8 pg (25.0-35.0); MCHC 33.1 g/dL (31.0-37.0); MCV 90.2 fL (80.0-100.0); Monocytes # (A) 0.4 k/uL (0-1.0); Monocytes % (A) 6 %; Neutrophils # (A) 3.6 k/uL (1.3-7.7); Neutrophils % (A) 55 %; Platelet Count 172 k/uL (150-450); RBC 3.62 m/uL (3.80-5.40); RDW 13.9 % (11.5-15.5); WBC 6.5 k/uL (3.8-10.6)
[2018-09-09 07:05] LABS: Calcium 8.2 mg/dL (8.4-10.2); Potassium 3.6 mmol/L (3.5-5.1)
[2018-09-09] MEDS: OXYBUTYNIN 10 MG TAB.ER.24 PO SCH (09:13)
[2018-09-09] MEDS: METOPROLOL TARTRATE 12.5 MG TAB PO SCH ×2 (09:13→19:41)
[2018-09-09] MEDS: ASPIRIN 325 MG TAB PO SCH (09:13)
[2018-09-09] MEDS: ATORVASTATIN 20 MG TAB PO SCH (09:13)
[2018-09-09] MEDS: amLODIPine 5 MG TAB PO SCH (09:13)
[2018-09-09] MEDS: DONEPEZIL 10 MG TAB PO SCH (09:13)
[2018-09-09] MEDS ORDERED: ENOXAPARIN 40 MG/0.4 ML SYRINGE SQ SCH (23:15)
--- NOTE | 2018-09-09 23:55 | PN ---
PROGRESS NOTE DATE OF SERVICE: September 09, 2018. PRESENTING COMPLAINT: Fall. INTERVAL HISTORY: This patient presented with falls. Tolerating a diet. Will be seen by Physical therapy, social work professor. The patient looking to go to rehab. REVIEW OF SYSTEMS: Done for constitutional, cardiovascular, GI, pulmonary; relevant findings as above. CURRENT MEDICATIONS: Reviewed and include: Norvasc, aspirin Lipitor, , Synthroid, Lopressor, Ditropan. PHYSICAL EXAMINATION: VITAL SIGNS: Temperature 97.9, pulse 59, respiratory rate 16, blood pressure 155/73, pulse ox 95% on room air. GENERAL APPEARANCE: Lying in bed, awake. EYES: Conjunctivae normal. NECK: JVD not raised. Mass not palpable. RESPIRATORY: Effort normal. LUNGS: Diminished breath sounds. CARDIOVASCULAR: First and second sounds normal. No edema. ABDOMEN: Soft, nontender. Liver and spleen not palpable. PSYCHIATRY: Answering some questions. INVESTIGATIONS: White count 6.5, hemoglobin 10.8, potassium 3.6. ASSESSMENT: 1. Fall, multifactorial including advanced osteoarthritis. 2. Alzheimer's dementia, late onset type. 3. Hyperlipidemia. 4. Essential hypertension. 5. Hypothyroid. 6. Chronic gait dysfunction, uses a walker. 7. Chronic urinary stress incontinence. PLAN: Continue current medication and treatment plan. Spoke to social work professor, looking into inpatient rehab placement. MMJEFRYL / CARLOSN: [id number] /
[2018-09-10 04:04] VITALS: RESP 18
[2018-09-10] MEDS: LEVOTHYROXINE 100 MCG TAB PO SCH (06:13)
[2018-09-10 07:55] VITALS: TEMP 97.7
[2018-09-10 08:18] LABS: Calcium 8.4 mg/dL (8.4-10.2); Potassium 3.7 mmol/L (3.5-5.1)
[2018-09-10 08:19] LABS: Basophils # (A) 0.1 k/uL (0-0.2); Basophils % (A) 1 %; Eosinophils # (A) 0.6 k/uL (0-0.7); Eosinophils % (A) 10 %; HCT 32.1 % (34.0-46.0); HGB 10.7 gm/dL (11.4-16.0); Lymphocytes # (A) 1.6 k/uL (1.0-4.8); Lymphocytes % (A) 24 %; MCHC 33.3 g/dL (31.0-37.0); MCV 89.9 fL (80.0-100.0); Mean Platelet Volume 6.8; Monocytes # (A) 0.4 k/uL (0-1.0); Monocytes % (A) 6 %; Neutrophils # (A) 3.8 k/uL (1.3-7.7); Neutrophils % (A) 57 %; Platelet Count 183 k/uL (150-450); RBC 3.57 m/uL (3.80-5.40); RDW 14.1 % (11.5-15.5); WBC 6.6 k/uL (3.8-10.6)
[2018-09-10] MEDS: ASPIRIN 325 MG TAB PO SCH (08:33)
[2018-09-10] MEDS: DONEPEZIL 10 MG TAB PO SCH (08:33)
[2018-09-10] MEDS: METOPROLOL TARTRATE 12.5 MG TAB PO SCH (08:33)
[2018-09-10] MEDS: OXYBUTYNIN 10 MG TAB.ER.24 PO SCH (08:33)
[2018-09-10] MEDS: ATORVASTATIN 20 MG TAB PO SCH (08:33)
[2018-09-10] MEDS: amLODIPine 5 MG TAB PO SCH (08:33)
[2018-09-10 11:43] VITALS: BP 165/72; PULSE 66
--- NOTE | 2018-09-10 16:02 | DS ---
DISCHARGE SUMMARY DATE OF ADMISSION: 09/05/2018 DATE OF DISCHARGE: 09/10/2018 FINAL DIAGNOSES: 1. Fall, multifactorial, including advanced osteoarthritis. 2. Alzheimer's dementia, late-onset type, with moderate cognitive impairment. 3. Hyperlipidemia. 4. Essential hypertension. 5. Hypothyroid. 6. Chronic gait dysfunction. Uses a walker. 7. Chronic urinary stress incontinence. HOSPITAL COURSE: This patient presented with falls, uncontrolled blood pressure. Medications were adjusted. The patient did have a 2-D echocardiogram that showed EF of 55% to 60%. There was no evidence of any fracture. EKG showed nonspecific changes. Blood pressure medications were adjusted. CONSULTATION: Dr. Horowitz from Cardiology. PHYSICAL EXAMINATION: Temperature 97.7, pulse 66, respiration 18, blood pressure 165/72, pulse ox 95% on room air. LUNGS: Fair air entry. CARDIOVASCULAR: First and second sounds normal. DISCHARGE MEDICATIONS: 1. Aricept 10 mg p.o. daily. 2. Levoxyl 100 mcg p.o. daily. 3. Pravachol 10 mg at bedtime. 4. Norvasc 5 mg p.o. daily. 5. Ditropan XL 10 mg p.o. daily. 6. Aspirin 81 mg p.o. daily. 7. Lipitor 20 mg p.o. daily. 8. Chlorthalidone 25 mg p.o. daily. 9. Lopressor 12.5 p.o. b.i.d. Follow up with Dr. Monroy on 09/11/2018. Follow up with Dr. Moe Hedrick after discharge from the [facility]. DISPOSITION: [facility]. CODE STATUS: NO CODE. MMODL / IJN: [id number] /
--- NOTE | 2018-09-11 15:02 | CDI ---
Documentation Clarification Form Date: 09/11/18 From: Marga Srivastava Phone: If you have a question regarding this query, please contact Aracely Cadet at [phone] between 8am and 5pm. Admit Date: 09/05/2018 6:21:00 PM Patient Name: Tammie Grace Visit Number: [id number] Discharge Date: 09/10/2018 5:39:00 PM ATTENTION: The Clinical Documentation Specialists (CDI) and [facility] Coding Staff appreciate your assistance in clarifying documentation. Please respond to the clarification below the line at the bottom and electronically sign. The CDI & [facility] Coding staff will review the response and follow-up if needed. Please note: Queries are made part of the Legal Health Record. If you have any questions, please contact the author of this message via ITS. Dr. Toy Kapoor The patient presented with fall due to dizziness, weakness, elevated troponin and UTI which was ruled out. Documentation in your discharge summary states, uncontrolled blood pressure. Dr. Delacruz and Dr. Patterson documented possible orthostatic. History/Risk Factors: Patient also had dehydration and azotemia. Patient has a history of hypertension, hypothyroidism, Alzheimer's dementia and gait dysfunction. Clinical Indicators: Dizziness. Lab findings: WBC 17.3, potassium 3.3, BUN 28, troponin (0.070, 0.249, 0.196) Radiology findings: Chest x-ray no acute cardiopulmonary process. Vital Signs: Lowest blood pressure 121/53. Systolic blood pressure ranged from 108 to 186, diastolic blood pressure ranged from 53 - 97. No consecutively low or high blood pressures. Treatment: Fluid bolus 1 liter then at 100 mls/hr Consults: Cardiology impression: borderline abnormal troponins after a fall. No syncope, nonspecific ST changes. History of hypertension. In your professional opinion, can you please clarify the uncontrolled blood pressure? Hypertension Crisis Emergency Urgency Orthostatic hypotension Other, please specify Unable to determine No orthostatic hypotension essential hypertnsion-type unable to determine MTDD
== END 2018-09-10 17:39 | DRG 641 ==
LOC: EC 15:21 → 3SCARD 18:21 → 2SICU 09-06 04:10 → 3SCARD 09-07 16:31
PROVIDERS: ADMIT Hospitalist; ATTEND Hospitalist
DX: E86.0 Dehydration (principal); L89.132 Pressure ulcer of right lower back, stage 2; M48.02 Spinal stenosis, cervical region; F02.80 Dementia in other diseases classified elsewhere, unspecified severity, without behavioral disturbance, psychotic disturbance, mood disturbance, and anxiety; G30.1 Alzheimer's disease with late onset; I69.311 Memory deficit following cerebral infarction; E03.9 Hypothyroidism, unspecified; E78.5 Hyperlipidemia, unspecified; E87.6 Hypokalemia; G89.29 Other chronic pain; I10 Essential (primary) hypertension; M19.90 Unspecified osteoarthritis, unspecified site; N39.3 Stress incontinence (female) (male); R26.9 Unspecified abnormalities of gait and mobility; R77.9 Abnormality of plasma protein, unspecified; R79.89 Other specified abnormal findings of blood chemistry; M79.661 Pain in right lower leg; Z79.890 Hormone replacement therapy; Z79.899 Other long term (current) drug therapy; Z87.891 Personal history of nicotine dependence; Z90.710 Acquired absence of both cervix and uterus; Z90.49 Acquired absence of other specified parts of digestive tract; Z88.8 Allergy status to other drugs, medicaments and biological substances; Z86.718 Personal history of other venous thrombosis and embolism; W18.30XA Fall on same level, unspecified, initial encounter; Y92.000 Kitchen of unspecified non-institutional (private) residence as the place of occurrence of the external cause
CPT/HCPCS: 36415; 70450; 71046; 72125; 72170; 80048; 80053; 80061; 81001; 81003; 82550; 82553; 83735; 84484; 85025; 85610; 85730; 87040; 87502; 93005; 93306; 96361; 96365; 96366; 96367; 96376; 99285

== ENCOUNTER 2019-01-09 09:24 | Emergency (ER) | payer MEDICARE, BC ==
[2019-01-09 09:33] VITALS: RESP 18
--- NOTE | 2019-01-09 09:40 | ED ---
General Adult HPI - General Chief complaint: Urogenital Stated complaint: frequent urination Time Seen by Provider: 01/09/19 09:30 Source: patient, EMS, RN notes reviewed Mode of arrival: EMS Limitations: physical limitation - History of Present Illness Initial comments: This is an 88-year-old female presents emergency department complaining of urinary frequency. Patient states his been every 2 hours since she has to urinate. Patient denies any dysuria or hematuria. Patient denies any abdominal pain. Patient denies any fever chills. Patient does states she's had a cough with some sputum production over the last 3 days. Patient denies any shortness of breath or difficulty breathing. Patient denies any chest pain or palpitations. Patient denies any CVA tenderness. Patient denies any nausea or vomiting or diarrhea - Related Data Home Medications Medication Instructions Recorded Confirmed Donepezil [Aricept] 10 mg PO DAILY 12/11/13 01/09/19 Levothyroxine Sodium [Levoxyl] 100 mcg PO DAILY 12/11/13 01/09/19 Pravastatin Sodium [Pravachol] 10 mg PO HS 12/11/13 01/09/19 amLODIPine [Norvasc] 5 mg PO DAILY 03/22/15 01/09/19 Oxybutynin ER [Ditropan Xl] 10 mg PO DAILY 04/05/17 01/09/19 Cholecalciferol [Vitamin D3 (25 1,000 unit PO DAILY 01/09/19 01/09/19 Mcg = 1000 Iu)] Metoprolol Tartrate [Lopressor] 12.5 mg PO BID 01/09/19 01/09/19 Ubidecarenone [Co Q-10] 100 mg PO DAILY 01/09/19 01/09/19 Vitamin B Complex 1 cap PO DAILY 01/09/19 01/09/19 Previous Rx's Medication Instructions Recorded Chlorthalidone 25 mg PO DAILY #1 tab 09/10/18 Allergies Allergy/AdvReac Type Severity Reaction Status Date / Time colesevelam [From WelChol] Allergy Unknown Verified 01/09/19 10:02 Review of Systems ROS Statement: Those systems with pertinent positive or pertinent negative responses have been documented in the HPI. ROS Other: All systems not noted in ROS Statement are negative. Past Medical History Past Medical History: CVA/TIA, Dementia, Deep Vein Thrombosis (DVT), Hyperlipidemia, Hypertension, Memory Impairment, Pneumonia, Skin Disorder, Thyroid Disorder Additional Past Medical History / Comment(s): "memory problems" SINCE STROKE AND RT SIDE AFFECTED.DVT RT LEG History of Any Multi-Drug Resistant Organisms: ESBL Date of last positivie culture/infection: 04/05/17 MDRO Source:: ESBL URINE Past Surgical History: Appendectomy, Hysterectomy Additional Past Surgical History / Comment(s): colonosocpy Past Anesthesia/Blood Transfusion Reactions: No Reported Reaction Past Psychological History: No Psychological Hx Reported Smoking Status: Former smoker Past Alcohol Use History: None Reported Past Drug Use History: None Reported - Past Family History Father History Unknown: Yes Family Medical History: Unable to Obtain Mother History Unknown: Yes Family Medical History: Unable to Obtain General Exam - General Exam Comments Initial Comments: GENERAL: Patient is well-developed and well-nourished. Patient is nontoxic and well- hydrated and is in mild distress. ENT: Neck is soft and supple. No significant lymphadenopathy is noted. Oropharynx is clear. Moist mucous membranes. Neck has full range of motion without eliciting any pain. EYES: The sclera were anicteric and conjunctiva were pink and moist. Extraocular movements were intact and pupils were equal round and reactive to light. Eyelids were unremarkable. PULMONARY: Unlabored respirations. Good breath sounds bilaterally. No audible rales rhonc hi or wheezing was noted. CARDIOVASCULAR: There is a regular rate and rhythm without any murmurs gallops or rubs. ABDOMEN: Patient has mild tenderness in the suprapubic region and some mild distention as well. SKIN: Patient has a skin tear on the right arm which she states EMS stated when they w ere removing her from her home. NEUROLOGIC: Patient is alert and oriented x3. Cranial nerves II through XII are grossly intact. Motor and sensory are also intact. Normal speech, volume and content. Symmetrical smile. MUSCULOSKELETAL: Normal extremities with adequate strength and full range of motion. No lower extremity swelling or edema. No calf tenderness. LYMPHATICS: No significant lymphadenopathy is noted PSYCHIATRIC: Normal psychiatric evaluation. Limitations: physical limitation Course Vital Signs 01/09/19 01/09/19 09:31 11:27 Temperature 98.9 F Pulse Rate 61 70 Respiratory 18 18 Rate Blood Pressure 124/66 121/56 O2 Sat by Pulse 97 97 Oximetry Medical Decision Making - Medical Decision Making I went into the room to reevaluate the patient and she was having any complaints at this time. Chest x-ray shows no acute abnormality - Lab Data Result diagrams: 01/09/19 10:07 01/09/19 10:07 Lab Results 01/09/19 01/09/19 01/09/19 Range/Units 09:55 10:07 10:07 WBC 8.4 (3.8-10.6) k/uL RBC 3.75 L (3.80-5.40) m/uL Hgb 10.7 L (11.4-16.0) gm/dL Hct 33.3 L (34.0-46.0) % MCV 88.8 (80.0-100.0) fL MCH 28.6 (25.0-35.0) pg MCHC 32.2 (31.0-37.0) g/dL RDW 14.6 (11.5-15.5) % Plt Count 221 (150-450) k/uL Neutrophils % 78 % Lymphocytes % 12 % Monocytes % 6 % Eosinophils % 4 % Basophils % 0 % Neutrophils # 6.5 (1.3-7.7) k/uL Lymphocytes # 1.0 (1.0-4.8) k/uL Monocytes # 0.5 (0-1.0) k/uL Eosinophils # 0.3 (0-0.7) k/uL Basophils # 0.0 (0-0.2) k/uL Sodium 139 (137-145) mmol/L Potassium 3.2 L (3.5-5.1) mmol/L Chloride 102 (98-107) mmol/L Carbon Dioxide 26 (22-30) mmol/L Anion Gap 11 mmol/L BUN 24 H (7-17) mg/dL Creatinine 1.08 H (0.52-1.04) mg/dL Est GFR (CKD-EPI)AfAm 53 (>60 ml/min/1.73 sqM) Est GFR (CKD-EPI)NonAf 46 (>60 ml/min/1.73 sqM) Glucose 125 H (74-99) mg/dL POC Glucose (mg/dL) 132 H (75-99) mg/dL POC Glu Cylinder Block Hole Reliner ID [id number] Calcium 9.2 (8.4-10.2) mg/dL Total Bilirubin 0.4 (0.2-1.3) mg/dL AST 19 (14-36) U/L ALT 12 (9-52) U/L Alkaline Phosphatase 54 (38-126) U/L Total Protein 6.4 (6.3-8.2) g/dL Albumin 3.5 (3.5-5.0) g/dL Urine Color Urine Appearance (Clear) Urine pH (5.0-8.0) Ur Specific [place] (1.001-1.035) Urine Protein (Negative) Urine Glucose (UA) (Negative) Urine Ketones (Negative) Urine Blood (Negative) Urine Nitrite (Negative) Urine Bilirubin (Negative) Urine Urobilinogen (<2.0) mg/dL Ur Leukocyte Esterase (Negative) 01/09/19 Range/Units 11:24 WBC (3.8-10.6) k/uL RBC (3.80-5.40) m/uL Hgb (11.4-16.0) gm/dL Hct (34.0-46.0) % MCV (80.0-100.0) fL MCH (25.0-35.0) pg MCHC (31.0-37.0) g/dL RDW (11.5-15.5) % Plt Count (150-450) k/uL Neutrophils % % Lymphocytes % % Monocytes % % Eosinophils % % Basophils % % Neutrophils # (1.3-7.7) k/uL Lymphocytes # (1.0-4.8) k/uL Monocytes # (0-1.0) k/uL Eosinophils # (0-0.7) k/uL Basophils # (0-0.2) k/uL Sodium (137-145) mmol/L Potassium (3.5-5.1) mmol/L Chloride (98-107) mmol/L Carbon Dioxide (22-30) mmol/L Anion Gap mmol/L BUN (7-17) mg/dL Creatinine (0.52-1.04) mg/dL Est GFR (CKD-EPI)AfAm (>60 ml/min/1.73 sqM) Est GFR (CKD-EPI)NonAf (>60 ml/min/1.73 sqM) Glucose (74-99) mg/dL POC Glucose (mg/dL) (75-99) mg/dL POC Glu Cylinder Block Hole Reliner ID Calcium (8.4-10.2) mg/dL Total Bilirubin (0.2-1.3) mg/dL AST (14-36) U/L ALT (9-52) U/L Alkaline Phosphatase (38-126) U/L Total Protein (6.3-8.2) g/dL Albumin (3.5-5.0) g/dL Urine Color Yellow Urine Appearance Clear (Clear) Urine pH 7.0 (5.0-8.0) Ur Specific [place] 1.012 (1.001-1.035) Urine Protein Negative (Negative) Urine Glucose (UA) Negative (Negative) Urine Ketones Negative (Negative) Urine Blood Negative (Negative) Urine Nitrite Negative (Negative) Urine Bilirubin Negative (Negative) Urine Urobilinogen <2.0 (<2.0) mg/dL Ur Leukocyte Esterase Negative (Negative) Disposition Clinical Impression: Urinary frequency, URI (upper respiratory infection), Skin tear Disposition: HOME SELF-CARE Condition: Good Instructions (If sedation given, give patient instructions): Urinary Urgency and Frequency (DC) Is patient prescribed a controlled substance at d/c from ED?: No Referrals: Moe Hedrick MD [Primary Care Provider] - 1-2 days Time of Disposition: 12:33
[2019-01-09 09:57] LABS: Glucose,Whole Blood 132 mg/dL (75-99)
[2019-01-09 10:23] LABS: Basophils % (A) 0 %; Eosinophils # (A) 0.3 k/uL (0-0.7); Eosinophils % (A) 4 %; HCT 33.3 % (34.0-46.0); HGB 10.7 gm/dL (11.4-16.0); Lymphocytes % (A) 12 %; MCH 28.6 pg (25.0-35.0); MCHC 32.2 g/dL (31.0-37.0); MCV 88.8 fL (80.0-100.0); Mean Platelet Volume 6.7; Monocytes # (A) 0.5 k/uL (0-1.0); Monocytes % (A) 6 %; Neutrophils # (A) 6.5 k/uL (1.3-7.7); Neutrophils % (A) 78 %; Platelet Count 221 k/uL (150-450); RBC 3.75 m/uL (3.80-5.40); RDW 14.6 % (11.5-15.5); WBC 8.4 k/uL (3.8-10.6)
[2019-01-09 10:42] LABS: Albumin 3.5 g/dL (3.5-5.0); Calcium 9.2 mg/dL (8.4-10.2); Potassium 3.2 mmol/L (3.5-5.1); Total Bilirubin 0.4 mg/dL (0.2-1.3); Total Protein 6.4 g/dL (6.3-8.2)
--- NOTE | 2019-01-09 10:49 | XR ---
EXAMINATION TYPE: XR chest 2V DATE OF EXAM: 01/09/2019 COMPARISON: Prior chest x-ray 09/05/2018 HISTORY: Difficulty breathing, shortness of breath TECHNIQUE: Frontal and lateral views of the chest are obtained. FINDINGS: Flattened hemidiaphragms, hyperinflation again noted suggesting underlying COPD. Calcificat ion in the right paratracheal region may be related to old granulomatous disease. The aorta is dense, patient is rotated. Arthropathy noted in the shoulders. There are overlying cardiac leads. Retrocard iac density with central lucency is compatible with probable hiatal hernia. There are coronary artery calcifications. Wedge compression deformity at the lower thoracic spine is stable. There is no focal air space opacity, pleural effusion, or pneumothorax seen. The cardiac silhouette size is stable. The osseous structures are stable. IMPRESSION: No acute cardiopulmonary process. Hiatal hernia, chronic thoracic compression fracture, coronary artery disease and cardiomegaly.
[2019-01-09 11:28] VITALS: PULSE 70
[2019-01-09 11:57] LABS: Appearance,Urine Clear (Clear); Bilirubin,Urine Negative (Negative); Blood,Urine Negative (Negative); Color,Urine Yellow; Glucose,Urine (UA) Negative (Negative); Ketones,Urine Negative (Negative); Leukocyte Esterase,Urine Negative (Negative); Nitrite,Urine Negative (Negative); Protein,Urine Negative (Negative); Specific Gravity,Urine 1.012 (1.001-1.035); Urobilinogen,Urine <2.0 mg/dL (<2.0)
[2019-01-09 13:07] VITALS: BP 140/64; TEMP 98
== END 2019-01-09 12:55 | disposition home or self-care (01) ==
LOC: EC 09:24
DX: R35.0 Frequency of micturition (principal); J06.9 Acute upper respiratory infection, unspecified; S41.111A Laceration without foreign body of right upper arm, initial encounter; F03.90 Unspecified dementia, unspecified severity, without behavioral disturbance, psychotic disturbance, mood disturbance, and anxiety; E78.5 Hyperlipidemia, unspecified; I10 Essential (primary) hypertension; E07.9 Disorder of thyroid, unspecified; Z90.710 Acquired absence of both cervix and uterus; Z87.891 Personal history of nicotine dependence; Z86.73 Personal history of transient ischemic attack (TIA), and cerebral infarction without residual deficits; Z79.890 Hormone replacement therapy; Z79.899 Other long term (current) drug therapy; Z88.8 Allergy status to other drugs, medicaments and biological substances
CPT/HCPCS: 36415; 51798; 71046; 80053; 81003; 85025; 99284

== ENCOUNTER 2019-11-13 15:18 | Emergency (ER) | payer MEDICARE, BC ==
--- NOTE | 2019-11-13 16:43 | ED ---
Fall HPI - General Chief Complaint: Fall Stated Complaint: fall Time Seen by Provider: 11/13/19 15:33 Source: patient Mode of arrival: ambulatory - History of Present Illness Initial Comments: Patient is a 89-year-old female presenting to the emergency Department after a fall. Patient states she was walking with her walker when she lost her balance and fell backwards. Patient states she did hit her head on the floor. She is complaining of a mild headache. She denies any neck pain, chest pain, extremity pain. She did not lose consciousness. She is not on blood thinners. Patient states she is having some right leg pain which she states is chronic in nature. She has had a history of a stroke that has affected her right side. She denies being nauseous or vomiting. She denies any lightheadedness, blurry vision. She has no further complaints at this time. Upon arrival to the ER, her vitals are stable. - Related Data Home Medications Medication Instructions Recorded Confirmed Donepezil [Aricept] 10 mg PO DAILY 12/11/13 01/09/19 Levothyroxine Sodium [Levoxyl] 100 mcg PO DAILY 12/11/13 01/09/19 Pravastatin Sodium [Pravachol] 10 mg PO HS 12/11/13 01/09/19 amLODIPine [Norvasc] 5 mg PO DAILY 03/22/15 01/09/19 Oxybutynin ER [Ditropan Xl] 10 mg PO DAILY 04/05/17 01/09/19 Cholecalciferol [Vitamin D3 (25 1,000 unit PO DAILY 01/09/19 01/09/19 Mcg = 1000 Iu)] Metoprolol Tartrate [Lopressor] 12.5 mg PO BID 01/09/19 01/09/19 Ubidecarenone [Co Q-10] 100 mg PO DAILY 01/09/19 01/09/19 Vitamin B Complex 1 cap PO DAILY 01/09/19 01/09/19 Previous Rx's Medication Instructions Recorded Chlorthalidone 25 mg PO DAILY #1 tab 09/10/18 Allergies Allergy/AdvReac Type Severity Reaction Status Date / Time colesevelam [From WelChol] Allergy Unknown Verified 11/13/19 15:27 Review of Systems ROS Statement: Those systems with pertinent positive or pertinent negative responses have been documented in the HPI. ROS Other: All systems not noted in ROS Statement are negative. Past Medical History Past Medical History: CVA/TIA, Dementia, Deep Vein Thrombosis (DVT), Hyperlipidemia, Hypertension, Memory Impairment, Pneumonia, Skin Disorder, Thyroid Disorder Additional Past Medical History / Comment(s): "memory problems" SINCE STROKE AND RT SIDE AFFECTED.DVT RT LEG History of Any Multi-Drug Resistant Organisms: ESBL Date of last positivie culture/infection: 04/05/17 MDRO Source:: ESBL URINE Past Surgical History: Appendectomy, Hysterectomy Additional Past Surgical History / Comment(s): colonosocpy Past Anesthesia/Blood Transfusion Reactions: No Reported Reaction Past Psychological History: No Psychological Hx Reported Smoking Status: Former smoker Past Alcohol Use History: None Reported Past Drug Use History: None Reported - Past Family History Father History Unknown: Yes Family Medical History: Unable to Obtain Mother History Unknown: Yes Family Medical History: Unable to Obtain General Exam - General Exam Comments Initial Comments: GENERAL: Well-appearing, well-nourished and in no acute distress. HEAD: Atraumatic, normocephalic. No signs of basilar skull fracture. EYES: Pupils equal round and reactive to light, extraocular movements intact, sclera anicteric, conjunctiva are normal. ENT: TMs normal, nares patent, oropharynx clear without exudates. Moist mucous membranes. NECK: Normal range of motion, supple without lymphadenopathy or JVD. No midline tenderness. LUNGS: Breath sounds clear to auscultation bilaterally and equal. No wheezes rales or rhonchi. HEART: Regular rate and rhythm without murmurs, rubs or gallops. ABDOMEN: Soft, nontender, normoactive bowel sounds. No guarding, no rebound. No masses appreciated. : Deferred EXTREMITIES: Weakness to the right side secondary to stroke. No tenderness with palpation of all 4 extremities. She is neurovascular intact. No pitting or edema. No clubbing or cyanosis. NEUROLOGICAL: Cranial nerves II through XII grossly intact. Normal speech, normal gait with walker. PSYCH: Normal mood, normal affect. SKIN: Warm, Dry, normal turgor, no rashes or lesions noted. Limitations: no limitations Course Vital Signs 11/13/19 15:20 Temperature 97.9 F Pulse Rate 75 Respiratory 18 Rate Blood Pressure 144/70 O2 Sat by Pulse 98 Oximetry Medical Decision Making - Medical Decision Making Patient is an 89-year-old female presenting after a fall backwards. She did hit her head, no LOC, no thinners. CT of the brain and C-spine were obtained and shows no acute abnormalities, no acute fractures. Patient has a very mild headache otherwise feels okay in the ER. Her daughter is here with her now. She is requesting to be discharged. Patient is stable for discharge. Return parameters were discussed with the patient and her daughter and they both verbalized understanding. Case discussed with Dr. Perez. Disposition Clinical Impression: Fall Disposition: HOME SELF-CARE Condition: Stable Instructions (If sedation given, give patient instructions): Fall Prevention for Older Adults (ED) Additional Instructions: Please return to the Emergency Department if symptoms worsen or any other concerns. May take Tylenol for pain. Is patient prescribed a controlled substance at d/c from ED?: No Referrals: Moe Hedrick MD [Primary Care Provider] - 1-2 days
--- NOTE | 2019-11-13 18:03 | CT ---
EXAMINATION: CT brain wo con DATE AND TIME: 11/13/2019 5:26 PM CLINICAL INDICATION: [facility]; fall, normal mental status TECHNIQUE: Standard departmental protocol.; 1100.4; COMPARISON: CT 09/05/2018 FINDINGS: The calvarium is intact. There is no intracranial hemorrhage. There is no intracranial mass or mass effect. No definite new intra-axial or extra-axial attenuation defect. Stable calcified extra-axial mass along the right superior frontoparietal junction measuring 2.5 cm. The paranasal sinuses, middle ear cavities, and mastoid sinus air cells are clear. The orbits are unr emarkable. IMPRESSION: No definite acute CT process.
[2019-11-13 18:57] VITALS: BP 149/78; PULSE 74; RESP 16; TEMP 97.8
== END 2019-11-13 18:35 | disposition home or self-care (01) ==
LOC: EC 15:18
DX: R51 Headache (principal); M79.604 Pain in right leg; F03.90 Unspecified dementia, unspecified severity, without behavioral disturbance, psychotic disturbance, mood disturbance, and anxiety; E78.5 Hyperlipidemia, unspecified; I10 Essential (primary) hypertension; E07.9 Disorder of thyroid, unspecified; Z87.891 Personal history of nicotine dependence; Z86.718 Personal history of other venous thrombosis and embolism; Z86.73 Personal history of transient ischemic attack (TIA), and cerebral infarction without residual deficits; Z79.890 Hormone replacement therapy; Z79.899 Other long term (current) drug therapy; Z88.8 Allergy status to other drugs, medicaments and biological substances; W19.XXXA Unspecified fall, initial encounter; Y93.01 Activity, walking, marching and hiking; Y92.009 Unspecified place in unspecified non-institutional (private) residence as the place of occurrence of the external cause
CPT/HCPCS: 70450; 99283

== ENCOUNTER 2020-04-01 09:26 | Inpatient (IN) | payer MEDICARE, BC ==
[2020-04-01] MEDS ORDERED: SODIUM CHLORIDE 0.9% 1,000 ML IV STA (10:12)
--- NOTE | 2020-04-01 10:15 | ED ---
General Adult HPI - General Chief complaint: Weakness Stated complaint: weakness, altered LOC Time Seen by Provider: 04/01/20 09:36 Source: patient, EMS, old records reviewed Mode of arrival: EMS Limitations: altered mental status - History of Present Illness Initial comments: Patient is a pleasant 89-year-old female presenting to the emergency department with weakness. Patient is a poor historian. Unclear exact onset however patient feels it may have occurred a couple of days ago. Patient reportedly also has decreased urination. Patient states she has been eating and drinking fine. Patient denies feeling dizzy. Patient does not feel confused. - Related Data Home Medications Medication Instructions Recorded Confirmed Donepezil [Aricept] 10 mg PO DAILY 12/11/13 01/09/19 Levothyroxine Sodium [Levoxyl] 100 mcg PO DAILY 12/11/13 01/09/19 Pravastatin Sodium [Pravachol] 10 mg PO HS 12/11/13 01/09/19 amLODIPine [Norvasc] 5 mg PO DAILY 03/22/15 01/09/19 Oxybutynin ER [Ditropan Xl] 10 mg PO DAILY 04/05/17 01/09/19 Cholecalciferol [Vitamin D3 (25 1,000 unit PO DAILY 01/09/19 01/09/19 Mcg = 1000 Iu)] Metoprolol Tartrate [Lopressor] 12.5 mg PO BID 01/09/19 01/09/19 Ubidecarenone [Co Q-10] 100 mg PO DAILY 01/09/19 01/09/19 Vitamin B Complex 1 cap PO DAILY 01/09/19 01/09/19 Previous Rx's Medication Instructions Recorded Chlorthalidone 25 mg PO DAILY #1 tab 09/10/18 Allergies Allergy/AdvReac Type Severity Reaction Status Date / Time colesevelam [From WelChol] Allergy Unknown Verified 04/01/20 09:33 Review of Systems ROS Statement: Those systems with pertinent positive or pertinent negative responses have been documented in the HPI. ROS Other: All systems not noted in ROS Statement are negative. Constitutional: Denies: fever Eyes: Denies: eye pain ENT: Denies: ear pain Respiratory: Denies: dyspnea Cardiovascular: Denies: chest pain Endocrine: Denies: fatigue Gastrointestinal: Denies: abdominal pain Genitourinary: Denies: dysuria Musculoskeletal: Denies: back pain Skin: Denies: rash Neurological: Reports: as per HPI, weakness. Denies: headache Past Medical History Past Medical History: CVA/TIA, Dementia, Deep Vein Thrombosis (DVT), Hyperlipidemia, Hypertension, Memory Impairment, Pneumonia, Skin Disorder, Thyroid Disorder Additional Past Medical History / Comment(s): "memory problems" SINCE STROKE AND RT SIDE AFFECTED.DVT RT LEG History of Any Multi-Drug Resistant Organisms: ESBL Date of last positivie culture/infection: 04/05/17 MDRO Source:: ESBL URINE Past Surgical History: Appendectomy, Hysterectomy Additional Past Surgical History / Comment(s): colonosocpy Past Anesthesia/Blood Transfusion Reactions: No Reported Reaction Past Psychological History: No Psychological Hx Reported Past Alcohol Use History: None Reported Past Drug Use History: None Reported - Past Family History Father History Unknown: Yes Family Medical History: Unable to Obtain Mother History Unknown: Yes Family Medical History: Unable to Obtain General Exam Limitations: altered mental status General appearance: alert, in no apparent distress Head exam: Present: normocephalic Eye exam: Present: normal appearance, PERRL, EOMI ENT exam: Present: normal oropharynx Neck exam: Present: normal inspection. Absent: tenderness Respiratory exam: Present: normal lung sounds bilaterally Cardiovascular Exam: Present: regular rate, normal rhythm GI/Abdominal exam: Present: soft. Absent: tenderness Neurological exam: Present: alert Expanded Neurological exam: Present: protecting the airway Patient oriented to: Present: person, place. Absent: time Speech: Present: fluid speech Cranial nerves: EOM's Intact: Normal, Facial Palsy with Forehead Movement: Abnormal Right (Right facial weakness that spares the forehead) Motor strength exam: RUE: 4, LUE: 4, RLE: 4 (There may be a trace amount of increase weakness on the right leg compared to), LLE: 4 Eye Response: (4) open spontaneously Motor Response: (6) obeys commands Verbal Response: (4) confused conversation Psychiatric exam: Present: normal affect, normal mood Skin exam: Present: normal color Course Vital Signs 04/01/20 04/01/20 04/01/20 09:30 10:00 11:00 Temperature 97.7 F Pulse Rate 63 59 L 62 Respiratory 18 18 16 Rate Blood Pressure 127/68 127/68 117/60 O2 Sat by Pulse 95 98 97 Oximetry - Reevaluation(s) Reevaluation #1: 04/01/20 10:13 Reviewed 3 previous visits and on examination there is no mention of right-sided facial weakness. On past medical history there is report of previous stroke with right-sided deficit however. EKG Findings - EKG Comments: EKG Findings:: Normal sinus rhythm 61. OR 114. QRS 84. QT 450. QTC 453. Left axis. Normal QRS. No acute ST change. Medical Decision Making - Medical Decision Making Patient reevaluated. Case discussed with Dr. Kapoor, who will admit For Dr. Li. Blood pressure has dropped and patient will be provided fluid bolus. No signs of infection. - Lab Data Result diagrams: 04/01/20 10:14 04/01/20 10:14 Lab Results 04/01/20 04/01/20 04/01/20 Range/Units 10:14 10:14 10:14 WBC 8.7 (3.8-10.6) k/uL RBC 3.82 (3.80-5.40) m/uL Hgb 12.0 (11.4-16.0) gm/dL Hct 36.1 (34.0-46.0) % MCV 94.5 (80.0-100.0) fL MCH 31.5 (25.0-35.0) pg MCHC 33.3 (31.0-37.0) g/dL RDW 13.1 (11.5-15.5) % Plt Count 201 (150-450) k/uL Neutrophils % 84 % Lymphocytes % 8 % Monocytes % 6 % Eosinophils % 2 % Basophils % 0 % Neutrophils # 7.3 (1.3-7.7) k/uL Lymphocytes # 0.7 L (1.0-4.8) k/uL Monocytes # 0.5 (0-1.0) k/uL Eosinophils # 0.2 (0-0.7) k/uL Basophils # 0.0 (0-0.2) k/uL PT 10.1 (9.0-12.0) sec INR 1.0 (<1.2) APTT 20.8 L (22.0-30.0) sec Sodium 137 (137-145) mmol/L Potassium 3.4 L (3.5-5.1) mmol/L Chloride 100 (98-107) mmol/L Carbon Dioxide 29 (22-30) mmol/L Anion Gap 8 mmol/L BUN 30 H (7-17) mg/dL Creatinine 0.99 (0.52-1.04) mg/dL Est GFR (CKD-EPI)AfAm 59 (>60 ml/min/1.73 sqM) Est GFR (CKD-EPI)NonAf 51 (>60 ml/min/1.73 sqM) Glucose 159 H (74-99) mg/dL Plasma Lactic Acid [place] (0.7-2.0) mmol/L Calcium 9.5 (8.4-10.2) mg/dL Total Bilirubin 0.9 (0.2-1.3) mg/dL AST 31 (14-36) U/L ALT 14 (4-34) U/L Alkaline Phosphatase 51 (38-126) U/L Troponin I (0.000-0.034) ng/mL Total Protein 6.3 (6.3-8.2) g/dL Albumin 3.4 L (3.5-5.0) g/dL Urine Color Urine Appearance (Clear) Urine pH (5.0-8.0) Ur Specific [place] (1.001-1.035) Urine Protein (Negative) Urine Glucose (UA) (Negative) Urine Ketones (Negative) Urine Blood (Negative) Urine Nitrite (Negative) Urine Bilirubin (Negative) Urine Urobilinogen (<2.0) mg/dL Ur Leukocyte Esterase (Negative) Urine RBC (0-5) /hpf Urine WBC (0-5) /hpf Ur Squamous Epith Cells (0-4) /hpf Hyaline Casts (0-2) /lpf Urine Mucus (None) /hpf 04/01/20 04/01/20 04/01/20 Range/Units 10:14 10:18 11:00 WBC (3.8-10.6) k/uL RBC (3.80-5.40) m/uL Hgb (11.4-16.0) gm/dL Hct (34.0-46.0) % MCV (80.0-100.0) fL MCH (25.0-35.0) pg MCHC (31.0-37.0) g/dL RDW (11.5-15.5) % Plt Count (150-450) k/uL Neutrophils % % Lymphocytes % % Monocytes % % Eosinophils % % Basophils % % Neutrophils # (1.3-7.7) k/uL Lymphocytes # (1.0-4.8) k/uL Monocytes # (0-1.0) k/uL Eosinophils # (0-0.7) k/uL Basophils # (0-0.2) k/uL PT (9.0-12.0) sec INR (<1.2) APTT (22.0-30.0) sec Sodium (137-145) mmol/L Potassium (3.5-5.1) mmol/L Chloride (98-107) mmol/L Carbon Dioxide (22-30) mmol/L Anion Gap mmol/L BUN (7-17) mg/dL Creatinine (0.52-1.04) mg/dL Est GFR (CKD-EPI)AfAm (>60 ml/min/1.73 sqM) Est GFR (CKD-EPI)NonAf (>60 ml/min/1.73 sqM) Glucose (74-99) mg/dL Plasma Lactic Acid [place] 2.4 H* (0.7-2.0) mmol/L Calcium (8.4-10.2) mg/dL Total Bilirubin (0.2-1.3) mg/dL AST (14-36) U/L ALT (4-34) U/L Alkaline Phosphatase (38-126) U/L Troponin I <0.012 (0.000-0.034) ng/mL Total Protein (6.3-8.2) g/dL Albumin (3.5-5.0) g/dL Urine Color Yellow Urine Appearance Clear (Clear) Urine pH 7.5 (5.0-8.0) Ur Specific [place] 1.018 (1.001-1.035) Urine Protein Negative (Negative) Urine Glucose (UA) Negative (Negative) Urine Ketones Negative (Negative) Urine Blood Negative (Negative) Urine Nitrite Negative (Negative) Urine Bilirubin Negative (Negative) Urine Urobilinogen 2.0 (<2.0) mg/dL Ur Leukocyte Esterase Trace H (Negative) Urine RBC 2 (0-5) /hpf Urine WBC 2 (0-5) /hpf Ur Squamous Epith Cells 2 (0-4) /hpf Hyaline Casts 6 H (0-2) /lpf Urine Mucus Occasional H (None) /hpf - Radiology Data Radiology results: report reviewed (Computed tomography scan the brain shows atrophy and chronic small vessel ischemic disease. Stable meningioma. 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 No acute intercranial abnormality.), image reviewed (Chest x-ray shows no acute process. Stable coronary artery disease and cardiomegaly.) Disposition Clinical Impression: Weakness Disposition: ADMITTED IP TO THIS HOSP Is patient prescribed a controlled substance at d/c from ED?: No Referrals: Moe Hedrick MD [Primary Care Provider] - 1-2 days Decision Time: 11:44
[2020-04-01 10:24] LABS: Basophils % (A) 0 %; Eosinophils # (A) 0.2 k/uL (0-0.7); Eosinophils % (A) 2 %; HCT 36.1 % (34.0-46.0); Lymphocytes # (A) 0.7 k/uL (1.0-4.8); Lymphocytes % (A) 8 %; MCH 31.5 pg (25.0-35.0); MCHC 33.3 g/dL (31.0-37.0); MCV 94.5 fL (80.0-100.0); Mean Platelet Volume 7.7; Monocytes # (A) 0.5 k/uL (0-1.0); Monocytes % (A) 6 %; Neutrophils # (A) 7.3 k/uL (1.3-7.7); Neutrophils % (A) 84 %; Platelet Count 201 k/uL (150-450); RBC 3.82 m/uL (3.80-5.40); RDW 13.1 % (11.5-15.5); WBC 8.7 k/uL (3.8-10.6)
[2020-04-01 10:34] LABS: Albumin 3.4 g/dL (3.5-5.0); Calcium 9.5 mg/dL (8.4-10.2); Potassium 3.4 mmol/L (3.5-5.1); Total Bilirubin 0.9 mg/dL (0.2-1.3); Total Protein 6.3 g/dL (6.3-8.2)
[2020-04-01 10:44] LABS: Prothrombin Time 10.1 sec (9.0-12.0)
--- NOTE | 2020-04-01 10:48 | CT ---
EXAMINATION TYPE: CT brain wo con DATE OF EXAM: 04/01/2020 COMPARISON: 11/13/2019 HISTORY: 89-year-old female Weakness and confusion. TECHNIQUE: Examination was done in axial plane without intravenous contrast. Coronal and sagittal r econstructions performed. CT DLP: 1142.4 mGycm Automated exposure control for dose reduction was used. FINDINGS: There is no evidence of acute intracranial hemorrhage, acute ischemic changes, mass effect, or extra -axial fluid collection. There is no effacement of cerebral sulci or basal subarachnoid cisterns. T here is no hydrocephalus. There is no midline shift. Ricci-white matter distinction is preserved. Moderate generalized atrophy with confluent white matter hypodensities in both cerebral hemispheres a nd old infarct along the posterior left insular lobe and anteromedial left temporal lobe, unchanged f rom prior exam. Stable densely calcified 2.5 cm extra-axial mass along the right frontoparietal junction. Moderate bi frontal. Prominent atherosclerotic calcifications within the proximal V4 segment vertebral arteries. Old blowout fracture medial right orbital wall. Visualized paranasal sinuses and mastoid air cells ap pear clear. IMPRESSION: 1 Moderate generalized atrophy and confluent changes of chronic small vessel ischemic disease. Stable 2.5 cm meningioma along the superior right convexity. 2. 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 No acute intracranial abnormality seen.
[2020-04-01 10:49] LABS: Partial Thromboplastin Time 20.8 sec (22.0-30.0)
--- NOTE | 2020-04-01 10:50 | XR ---
EXAMINATION TYPE: XR chest 2V DATE OF EXAM: 04/01/2020 COMPARISON: Prior chest x-ray 01/09/2019 HISTORY: Weakness TECHNIQUE: Frontal and lateral views of the chest are obtained. FINDINGS: There is no focal air space opacity, pleural effusion, or pneumothorax seen. The cardiac silhouette size is stable, enlarged. The osseous structures show decreased mineralization, compress ion deformities are present in the lower thoracic and possibly upper lumbar spine. Arthropathy noted in the shoulders. Bone mineralization is decreased. Postop change suspected of the left clavicle. Aor ta is dense. There are coronary artery calcifications. Prominent lung lines suggest underlying COPD. Retrocardiac air-fluid level may represent hiatal hernia. Patient is rotated. There are overlying art ifacts. IMPRESSION: No acute cardiopulmonary process. Stable abnormal findings, coronary artery disease and cardiomegaly. Osteoporotic compression fractures. Additional findings above.
[2020-04-01 11:24] LABS: Appearance,Urine Clear (Clear); Bilirubin,Urine Negative (Negative); Blood,Urine Negative (Negative); Color,Urine Yellow; Glucose,Urine (UA) Negative (Negative); Hyaline Casts,Urine 6 /lpf (0-2); Ketones,Urine Negative (Negative); Leukocyte Esterase,Urine Trace (Negative); Mucus,Urine Occasional /hpf; Nitrite,Urine Negative (Negative); PH, Urine 7.5 (5.0-8.0); Protein,Urine Negative (Negative); RBC,Urine 2 /hpf (0-5); Specific Gravity,Urine 1.018 (1.001-1.035); Squamous Epithelial Cell,Urine 2 /hpf (0-4); WBC,Urine 2 /hpf (0-5)
[2020-04-01] MEDS ORDERED: SODIUM CHLORIDE 0.9% 500 ML 500 ML IV STA (11:43)
[2020-04-01] MEDS ORDERED: NALOXONE 0.4 MG/ML 1 ML VIAL IV PRN (11:45)
[2020-04-01] MEDS ORDERED: INFLUENZA VACCINE (6 MOS+) 60 MCG/0.5 ML SYRINGE IM ONE (12:46)
--- NOTE | 2020-04-01 15:05 | P.CNNES ---
History of Present Illness Consult date: 04/01/20 Requesting physician: Kaiden Porter Reason for Consult: weakness History of Present Illness: This is a 89 y/o woman with medical history of Stroke, Dementia, Hyperlipidemia, Osteoarthritis, HTN that presented to the emergency department 04/01/2020 for weakness and ?loss of consciousness. She is a poor history and history is obtained from medical records. I attempted to contact the patients daughter and son via phone but no response. From the limited history the patient provided me with she said that the last 2 days she's been falling. She said that she's feeling generalized weakness. She denies of any headache, any nausea any vomiting, focal weakness, visual disturbance. She denies of feeling lightheaded upon standing up. He denies of any fevers or chills. She denies of any neck pain. She denies of any cough. Per EMS notes the patient was sitting on a carpeted floor in front of her recliner. She notified them that she is attempting to get up off the recliner when she slid down onto the floor. In the day and also mentioned that for last 2 days she is having increased body weakness. Also in the EMS reports and mentioned that that the patient has been having increased urination and thirst the last couple days but in the ED note that they mentioned that the she had that decreased urination but the patient concurs that she had increased urination. EMS glucose check was 212. Patient acknowledge that she had a history of an old stroke about 10 years ago. She cannot tell me the workup that she had. Cannot tell me the medication she is on. She said that she lives by herself at home but her daughter and visits her on a daily basis. And her son visits her every Sunday. She uses a walker at home. Patient is on Aricept 10mg daily for dementia. Work-up in the hospital: Initial Vitals: blood pressure: 127/68, HR 63, Temp 97.7 F oral, RR 18 and Pulse Oxygen 95% at RA. CT head: Reported as moderate generalized atrophy and confluent changes of chronic small vessel ischemic disease. Stable 2.5cm meningioma along the superior right convexity. Old left sided insular and temporal infarct. No acute intracranial abnormality seen. I did review the CT head and agree with radiology findings. EKG: Reported as normal sinus rhythm. Ventricular rate: 61. Nonspecific ST abnormality. Abnormal EKG. Glucose 159. Plasma lactic acid venous: 2.4. Review of Systems Limited because of patient condition but pertinent positive and negative per HPI. Past Medical History Past Medical History: Asthma, CVA/TIA, Dementia, Deep Vein Thrombosis (DVT), Hyperlipidemia, Hypertension, Memory Impairment, Osteoarthritis (OA), Pneumonia, Skin Disorder, Thyroid Disorder Additional Past Medical History / Comment(s): CVA with R sided weakness/arm and leg, DVT R leg, mild memory problems per daughter, arthritis bilateral hands, falls, hypothyroid, urinary incontinence History of Any Multi-Drug Resistant Organisms: ESBL Date of last positivie culture/infection: 04/05/17 MDRO Source:: ESBL URINE Past Surgical History: Appendectomy, Hysterectomy Additional Past Surgical History / Comment(s): colonosocpy Past Anesthesia/Blood Transfusion Reactions: No Reported Reaction Smoking Status: Former smoker - Past Family History Father History Unknown: Yes Family Medical History: Myocardial Infarction (SD) Additional Family Medical History / Comment(s): Father had a SD and but age is unknown Mother History Unknown: Yes Family Medical History: Myocardial Infarction (SD) Additional Family Medical History / Comment(s): Mother of a SD in her 50s Medications and Allergies Home Medications Medication Instructions Recorded Confirmed Type Donepezil [Aricept] 10 mg PO HS 12/11/13 04/01/20 History Levothyroxine Sodium [Levoxyl] 100 mcg PO DAILY 12/11/13 04/01/20 History Pravastatin Sodium [Pravachol] 10 mg PO HS 12/11/13 04/01/20 History amLODIPine [Norvasc] 5 mg PO DAILY 03/22/15 04/01/20 History Oxybutynin ER [Ditropan Xl] 10 mg PO DAILY 04/05/17 04/01/20 History Chlorthalidone 25 mg PO DAILY #1 tab 09/10/18 04/01/20 Rx Cholecalciferol [Vitamin D3 (25 5,000 unit PO DAILY 01/09/19 04/01/20 History Mcg = 1000 Iu)] Metoprolol Tartrate [Lopressor] 12.5 mg PO BID 01/09/19 04/01/20 History Ubidecarenone [Co Q-10] 100 mg PO DAILY 01/09/19 04/01/20 History Pyridoxine HCl (Vitamin B6) 100 mg PO DAILY 04/01/20 04/01/20 History [Vitamin B-6] Allergies Allergy/AdvReac Type Severity Reaction Status Date / Time colesevelam [From WelChol] Allergy Unknown Verified 04/01/20 11:49 Physical Examination - Vital Signs Vital Signs: Vital Signs Temp Pulse Resp BP Pulse Ox 04/01/20 12:30 70 18 143/61 95 04/01/20 12:00 66 18 154/66 94 L 04/01/20 11:50 62 18 79/56 94 L 04/01/20 11:00 62 16 117/60 97 04/01/20 10:00 59 L 18 127/68 98 04/01/20 09:30 97.7 F 63 18 127/68 95 Intake and Output 03/31/20 04/01/20 04/01/20 22:59 06:59 14:59 Other: Weight 63.503 kg GENERAL: The patient is lying in bed and is not in acute distress. CHEST: The heart rate is regular rate rhythm. No murmurs to auscultation. . LUNG: Clear to auscultation bilaterally no wheezing noted throughout. Not labored breathing. ABDOMEN/GI: Bowel sounds present in all 4 quadrants. No tenderness to palpation throughout. MUSCULOSKELETAL: Has significant arthritis and it seemed that her arthritis are worse on the right hand and foot. Patient as a had the pain to touch on the right hand on multiple times when assessing that. NEUROLOGICAL: Higher mental function: The patient is awake, alert, oriented to self and place but not time. She'll she said the year was 1900 that on repeated questioning she did not respond to the question. Patient is following simple commands. No aphasia and no neglect. Cranial nerves: The pupils are round, equal and reactive to light and accommodation. Visual haro are full to confrontation throughout. Extraocular movement is intact no nystagmus is noted. Facial sensation is normal to touch throughout. Has right lower facial droop. Hearing is mildly decreased to hand rub bilaterally. Tongue is midline and moved [id number] without any difficulty There is no tongue bite jered.. No dysarthria is noted. Shoulder sh rug is normal bilaterally. Motor: Gait was attempted but patient kept on saying I am weak. I was ac companied with the patient's nurse and had a walker at bedside to assess her gait but kept had a hard time to get up and said "I am too weak". The strength is limited in right hand because of pain but otherwise the bilateral upper extremities are 5/5. While lower extremities she was able to lift above gravity without any difficulty and no drift. Lower extremities are limited because of her cooperation. Normal tone and bulk. Sensation: Sensation is normal to touch throughout. Reflexes (right/left): 1+ throughout. Toes are upgoing at baseline bilaterally. Results AST of 31, ALC of 14. Correlation study: PT of 10.1, INR 1.0, PTT of 20.8. urine analysis: negative for UTI. - Laboratory Findings CBC and BMP: 04/01/20 10:14 04/01/20 10:14 Abnormal Lab Findings: Abnormal Labs 04/01/20 04/01/20 04/01/20 10:14 10:14 10:14 Lymphocytes # 0.7 L APTT 20.8 L Potassium 3.4 L BUN 30 H Glucose 159 H Plasma Lactic Acid Pantera Albumin 3.4 L Ur Leukocyte Esterase Hyaline Casts Urine Mucus 04/01/20 04/01/20 10:18 11:00 Lymphocytes # APTT Potassium BUN Glucose Plasma Lactic Acid Pantera 2.4 H* Albumin Ur Leukocyte Esterase Trace H Hyaline Casts 6 H Urine Mucus Occasional H Assessment and Plan Assessment: This is an 89-year-old woman with multiple medical problems that presented emergency department on 04/01/2024 falls for the last 2 days generalized weakness and increased urination and thirst. Patient has dementia and the there are no family members at bedside on able to reach them via phone. Patient had that elevated lactic venous acid of 2.4 Falls for the last 2 days with generalized weakness Pain over the right hand Dementia History of old left insular and temporal or infarct (per patient ?10 years ago) with residual mild right lower facial droop 2.5 cm meningioma along the superior right convexity Elevated venous lactic acid Significant arthritis Hypertension Plan: * Because of the patient generalized weakness, I ordered TSH, vitamin B12 and folate. * From the EMS report there is no mention of loss of consciousness and it's mentioned that the patient is falling off of her recliner that she slipped. I don't feel an EEG is warranted at this time. * I'll try to get more information from the family regarding the patient history of old stroke and whether it was hemorrhagic or ischemic so I can the place her on appropriate medication. * Because of the patient's old encephalomalacia over the left temporal which can be a trigger for seizures, therefore I feel that anti-epileptic drugs will be beneficial. But before I do that I would like to speak to the family first before pursuing. * I consulted that physical therapy occupation therapy. * Regarding the patient history of dementia I placed her on her home medication of Aricept 10 mg daily. * Because of the patient right hand pain I ordered limited right hand x-ray. I will attempt again to contact the patient family and if unsuccessful then I'll try again tomorrow. Thank You for the consultation. Alberto Dubon M.D. Neuro-hospitalist Time with Patient: Greater than 30
--- NOTE | 2020-04-01 15:46 | XR ---
Right hand HISTORY: Right hand pain 3 views the right hand Bone mineralization is reduced. There are arthropathy changes within the wrist with joint space loss at the lateral aspect of the carpal rows, loss of joint space at the carpometacarpal joint of the fir st digit with hypertrophic change. Distal interphalangeal joints show marginal spurring and joint spa ce loss, subchondral sclerosis. There is no fracture or dislocation. Dense vascular calcifications ar e noted incidentally. Digits are flexed and could limit sensitivity. IMPRESSION: Osteoarthritis. Osteopenia. Correlate for diabetes, peripheral vascular occlusive disease .
[2020-04-01] MEDS: DONEPEZIL 10 MG TAB PO SCH (20:46)
[2020-04-02 10:42] LABS: African American GFR (CKD) 68 (>60 ml/min/1.73 sqM); Anion Gap 5 mmol/L; Blood Urea Nitrogen 19 mg/dL (7-17); Calcium 8.7 mg/dL (8.4-10.2); Carbon Dioxide 28 mmol/L (22-30); Chloride 103 mmol/L (98-107); Glucose 96 mg/dL (74-99); Magnesium 1.9 mg/dL (1.6-2.3); Non-African American GFR(CKD) 59 (>60 ml/min/1.73 sqM); Potassium 2.8 mmol/L (3.5-5.1); Sodium 136 mmol/L (137-145)
--- NOTE | 2020-04-02 12:07 | P.PN ---
Subjective Progress Note Date: 04/02/20 The patient was seen at bedside and she was accompanied by her daughter. Per the patient daughter the yesterday the patient slid out of her chair and the per the patient that if she felt like she was about to pass out but she did not. As a result she fell on the carpet floor. She denies feeling lightheadedness, loss of consciousness, any urinary or bowel incontinence. Denies any tongue bite. The day prior to her presentation the she was walk-in and the she had a mechanical fall tripping on her walker. Patient also did not lose consciousness, no urinary bowel incontinence. No seizure-like activity. Per the patient daughter the patient is alert oriented to self and place but not time. She is able to have a normal conversation. Daughter feels like her memory for the most part is intact. Per the patient daughter the patient had the a stroke about 11 years ago (which patient was close to time frame of 10 years ago) and the she was taken to [facility] which is now [facility]. Her stroke was that she had right-sided weakness. She had a stroke workup and that she was discharged on aspirin as well as statin. Patient had the rehab and her strength improved on the right side but continued to have some weakness over the right. As a result she uses a walker. Down the line she was taking discontinued on aspirin and statin by her primary care physician and the she was told that she doesn't need it any longer and that was many years ago per the daughter. Patient never had seizure and in the past or seizure-like activity. Patient has significant arthritis and and said her hand pain is because of her significant arthritis. She lives by herself but her daughter visits her daily and the she prepares meals daily. Patient does not need any assistance with feeding or using the bathroom. The patient was correctly and she stated that her son visits her every Sunday. Objective - Vital Signs Vital signs: Vital Signs Temp 97.6 F 04/02/20 05:17 Pulse 69 04/02/20 08:00 Resp 20 04/02/20 08:00 BP 152/67 04/02/20 05:17 Pulse Ox 95 04/02/20 05:17 Intake & Output 04/01/20 04/02/20 04/02/20 18:59 06:59 18:59 Intake Total 1025 Balance 1025 Weight 63.503 kg Intake: Intake, IV Titration 825 Amount Sodium Chloride 0.9% 1, 825 000 ml @ 75 mls/hr IV . [id number] STA Rx#:[id number] Oral 200 Other: Voiding Method Bedpan Bedpan Bedpan # Voids 1 3 1 - Exam GENERAL: The patient is lying in bed and is not in acute distress. CHEST: The heart rate is regular rate rhythm. No murmurs to auscultation. . LUNG: Clear to auscultation bilaterally no wheezing noted throughout. Not labored breathing. MUSCULOSKELETAL: Has significant arthritis and it seemed that her arthritis are worse on the right hand and foot. Patient as a had the pain to touch on the right hand on multiple times when assessing that. NEUROLOGICAL: Higher mental function: The patient is awake, alert, oriented to self and place but not time. She'll she said the year was 1899 that on repeated questioning she did not respond to the question. Patient is following simple commands. No aphasia and no neglect. Cranial nerves: The pupils are round, equal and reactive to light and accommod ation. Visual haro are full to confrontation throughout. Extraocular movement is intact no nystagmus is noted. Facial sensation is normal to touch throughout. Has right lower facial droop. Hearing is mildly decreased to hand rub bilaterally. Tongue is midline and moved [id number] without any difficulty There is no tongue bite jered.. No dysarthria is noted. Shoulder shrug is normal bilaterally. Motor: Gait is defered.. The strength is limited but was able to left upper and lower extremities above gravity and there is no drift noted. Was limited because of the patient pain. Patient has flexion of the right fourth fifth and partial third digits from significant arthritis but is able to extend that her digits upon asking. Normal tone and bulk. Sensation: Sensation is normal to touch throughout. Reflexes (right/left): 1+ throughout. Toes are upgoing at baseline bilaterally. - Labs CBC & Chem 7: 04/01/20 10:14 04/02/20 05:58 Labs: Abnormal Lab Results - Last 24 Hours (Table) 04/02/20 04/02/20 Range/Units 05:58 05:58 Sodium 136 L (137-145) mmol/L Potassium 2.8 L (3.5-5.1) mmol/L BUN 19 H (7-17) mg/dL TSH 0.110 L (0.350-5.500) uIU/mL Assessment and Plan Assessment: This is an 89-year-old woman with multiple medical problems that presented emergency department on 04/01/2024 falls for the last 2 days generalized weakness and increased urination and thirst. Patient has dementia and the there are no family members at bedside on able to reach them via phone. Patient had that elevated lactic venous acid of 2.4 Falls for the last 2 days with generalized weakness Pain over the right hand due to significant arthritis Mild Dementia (in my opinoin seems appropriate for her age) History of old left insular and temporal or infarct (per patient ?10 years ago) with residual mild right lower facial droop 2.5 cm meningioma along the superior right convexity Elevated venous lactic acid Significant arthritis Osteopenia Hypertension Plan: * Because of the patient generalized weakness, I ordered TSH: 0.110 pending reflex; folate: pending, vitamin B12: 340: low normal. As a result will place the patient on at thousand micrograms daily. * Patient has no loss of consciousness and no seizure-like activity therefore EEG is not warranted at this time. * Because of the patient's old the ischemic stroke I'll place her on aspirin 81 mg and continue home Prvastatin 10mg daily. Patient daughter is in agreement to this as well as the patient. 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 Per the patient daughter she wants to hold off anti-epileptic drugs which I'm in agreement unless the patient has any seizure-like activity. * Regarding the patient history of dementia Continue her home medication of Aricept 10 mg daily. * She is on home vitamin B6 100 mg daily. * Patient stated that yesterday prior to ED presentation when she was sitting on chair she felt like she is about to pass out sensation but that there is no l oss of consciousness. Consider a 2-D echo but will defer the management to the primary team. Regarding getting orthostatic vitals I think will be impossible at this moment because of the yesterday I attempted to get the patient the to walk and that with assistance from the nurse was a little bit difficult getting her to get out of bed because of her pain. Maybe this can be done down the line and if she does have positive orthostatic and then consider placing her on the midodrine. * The plan was discussed with the patient as well as daughter and they're in agreement. * There is no neurological service over the weekend. Can Perfect Serve if needed. Alberto Dubon M.D. Neuro-hospitalist Time with Patient: Less than 30
[2020-04-02] MEDS: LEVOTHYROXINE 100 MCG TAB PO SCH (12:49)
[2020-04-02] MEDS: amLODIPine 5 MG TAB PO SCH (12:49)
[2020-04-02] MEDS: CHLORTHALIDONE 25 MG TAB PO SCH (12:49)
[2020-04-02] MEDS: METOPROLOL TARTRATE 12.5 MG TAB PO SCH ×2 (12:49→21:59)
[2020-04-02] MEDS: ASPIRIN 81 MG PO SCH (12:50)
[2020-04-02] MEDS: OXYBUTYNIN 10 MG TAB.ER.24 PO SCH (12:50)
[2020-04-02] MEDS: PYRIDOXINE 50 MG TAB PO SCH (12:50)
[2020-04-02] MEDS: ENOXAPARIN 40 MG/0.4 ML SYRINGE SQ SCH (12:50)
[2020-04-02] MEDS: POTASSIUM CHLORIDE ER 20 MEQ TAB.ER PO SCH ×2 (12:50→15:21)
[2020-04-02] MEDS: CYANOCOBALAMIN 500 MCG TAB PO SCH (12:55)
[2020-04-02] MEDS: DONEPEZIL 10 MG TAB PO SCH (21:59)
[2020-04-02] MEDS: PRAVASTATIN SODIUM 20 MG TAB PO SCH (22:01)
--- NOTE | 2020-04-02 23:04 | P.HPIM ---
History of Present Illness H&P Date: 04/02/20 Chief Complaint: weak History of presenting complaint: This is a pleasant 89-year-old patient who follows with Dr. Hedrick. Chronic stable medical conditions include dementia, hypertension, hyperlipidemia, osteoarthritis, hypothyroid, arthritis, urinary incontinence, some right-sided weakness from prior stroke. And a baseline patient lives at [facility]. Does use a walker. 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 Patient has been becoming weak. Decreased appetite. Increasingly forgetful. Patient has chronic facial asymmetry. Daughter doesn't think this is any worse. No trouble swallowing. No fever no chills. No change in vision. No headache. Review of systems: GEN.: Tired EYES: None HEENT: None NECK: None RESPIRATORY: None CARDIOVASCULAR: None GASTROINTESTINAL: None GENITOURINARY: None MUSCULOSKELETAL: Joint pains LYMPHATICS: None HEMATOLOGICAL: None PSYCHIATRY: Forgetful NEUROLOGICAL: Uses a walker Past medical history to include: Asthma, dementia, DVT, hypertension, hyperlipidemia, osteoarthritis, hypothyroid, stroke with right-sided weakness facial asymmetry, urinary incontinence Social history: Lives at [facility], uses a walker, Dr. Davis is that D POA. Patient smoked for 40 years stopped in 1995. One pack a day. No alcohol. Physical examination: VITAL SIGNS: 97.4, 35, 17, 122/71, 97% room air GENERAL: BMI 24.8, laying in bed, comfortable. EYES: Pupils equal. Conjunctiva normal. HEENT: External appearance of nose and ears normal, oral cavity grossly normal. NECK: JVD not raised; masses not palpable. HEART: First and second heart sounds are normal; no edema. LUNGS: Respiratory rate normal; clear to auscultation. ABDOMEN: Soft, nontender, liver spleen not palpable, no masses palpable. PSYCH: [Patient knows that she in the hospital. Not sure about the year. Not sure about the reason. L. NEUROLOGICAL: [Maltas spoke to the left. Slight dysarthria. Some weakness on the right side MUSCULOSKELETAL: Evidence of OA. LYMPHATICS: No lymph nodes palpable in the axilla and neck INVESTIGATIONS, reviewed in the clinical context: White count 8.7 hemoglobin 12 potassium 3.4 creatinine 0.9 9 repeat potassium 2.8 Albumin 3.4 EKG tracing personally reviewed by me-normal sinus rhythm Chest x-ray film personally reviewed by me-possible cardiomegaly. Osteoporotic compression fractures reported. 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 Encourage oral intake. Home medications to be continued. Consult PTOT. Care was discussed with the patient. And the daughter the bedside. Questions were answered. They benefit per inpatient re hab. Past Medical History Past Medical History: Asthma, CVA/TIA, Dementia, Deep Vein Thrombosis (DVT), Hyperlipidemia, Hypertension, Memory Impairment, Osteoarthritis (OA), Pneumonia, Skin Disorder, Thyroid Disorder Additional Past Medical History / Comment(s): CVA with R sided weakness/arm and leg, DVT R leg, mild memory problems per daughter, arthritis bilateral hands, falls, hypothyroid, urinary incontinence History of Any Multi-Drug Resistant Organisms: ESBL Date of last positivie culture/infection: 04/05/17 MDRO Source:: ESBL URINE Past Surgical History: Appendectomy, Hysterectomy Additional Past Surgical History / Comment(s): colonosocpy Past Anesthesia/Blood Transfusion Reactions: No Reported Reaction Smoking Status: Former smoker - Past Family History Father History Unknown: Yes Family Medical History: Myocardial Infarction (LA) Additional Family Medical History / Comment(s): Father had a LA and but age is unknown Mother History Unknown: Yes Family Medical History: Myocardial Infarction (LA) Additional Family Medical History / Comment(s): Mother of a LA in her 50s Medications and Allergies Home Medications Medication Instructions Recorded Confirmed Type Donepezil [Aricept] 10 mg PO HS 12/11/13 04/01/20 History Levothyroxine Sodium [Levoxyl] 100 mcg PO DAILY 12/11/13 04/01/20 History Pravastatin Sodium [Pravachol] 10 mg PO HS 12/11/13 04/01/20 History amLODIPine [Norvasc] 5 mg PO DAILY 03/22/15 04/01/20 History Oxybutynin ER [Ditropan Xl] 10 mg PO DAILY 04/05/17 04/01/20 History Chlorthalidone 25 mg PO DAILY #1 tab 09/10/18 04/01/20 Rx Cholecalciferol [Vitamin D3 (25 5,000 unit PO DAILY 01/09/19 04/01/20 History Mcg = 1000 Iu)] Metoprolol Tartrate [Lopressor] 12.5 mg PO BID 01/09/19 04/01/20 History Ubidecarenone [Co Q-10] 100 mg PO DAILY 01/09/19 04/01/20 History Pyridoxine HCl (Vitamin B6) 100 mg PO DAILY 04/01/20 04/01/20 History [Vitamin B-6] Allergies Allergy/AdvReac Type Severity Reaction Status Date / Time colesevelam [From WelChol] Allergy Unknown Verified 04/01/20 11:49 Physical Exam Vitals: Vital Signs Temp Pulse Pulse Resp BP BP Pulse Ox 04/02/20 08:00 69 20 04/02/20 05:17 97.6 F 69 20 152/67 95 04/02/20 00:00 18 04/01/20 20:00 97.8 F 68 18 127/63 95 04/01/20 19:00 98 F 71 24 112/59 93 L 04/01/20 14:18 98.7 F 92 16 142/62 96 04/01/20 12:30 70 18 143/61 95 04/01/20 12:00 66 18 154/66 94 L 04/01/20 11:50 62 18 79/56 94 L 04/01/20 11:00 62 16 117/60 97 Intake and Output 04/01/20 04/02/20 04/02/20 22:59 06:59 14:59 Intake Total 425 600 Balance 425 600 Intake: Intake, IV Titration 225 600 Amount Sodium Chloride 0.9% 1, 225 600 000 ml @ 75 mls/hr IV . [id number] STA Rx#:[id number] Oral 200 Other: Voiding Method Bedpan Bedpan Bedpan # Voids 1 3 Results CBC & Chem 7: 04/01/20 10:14 04/02/20 05:58 Labs: Abnormal Lab Results - Last 24 Hours (Table) 04/01/20 04/01/20 04/01/20 Range/Units 10:14 10:14 10:14 Lymphocytes # 0.7 L (1.0-4.8) k/uL APTT 20.8 L (22.0-30.0) sec Potassium 3.4 L (3.5-5.1) mmol/L BUN 30 H (7-17) mg/dL Glucose 159 H (74-99) mg/dL Plasma Lactic Acid Pantera (0.7-2.0) mmol/L Albumin 3.4 L (3.5-5.0) g/dL Ur Leukocyte Esterase (Negative) Hyaline Casts (0-2) /lpf Urine Mucus (None) /hpf 04/01/20 04/01/20 Range/Units 10:18 11:00 Lymphocytes # (1.0-4.8) k/uL APTT (22.0-30.0) sec Potassium (3.5-5.1) mmol/L BUN (7-17) mg/dL Glucose (74-99) mg/dL Plasma Lactic Acid Pantera 2.4 H* (0.7-2.0) mmol/L Albumin (3.5-5.0) g/dL Ur Leukocyte Esterase Trace H (Negative) Hyaline Casts 6 H (0-2) /lpf Urine Mucus Occasional H (None) /hpf Thrombosis Risk Factor Assmnt - Choose All That Apply Any of the Below Risk Factors Present?: Yes Other Risk Factors: Yes Each Risk Factor Represents 3 Points: Age 75 years or older, History of DVT/PE Other congenital or acquired thrombophilia - If yes, enter type in comment: No Thrombosis Risk Factor Assessment Total Risk Factor Score: 6 Thrombosis Risk Factor Assessment Level: High Risk
[2020-04-03] MEDS: LEVOTHYROXINE 100 MCG TAB PO SCH (05:48)
[2020-04-03 09:07] LABS: ALT 15 U/L (4-34); AST 33 U/L (14-36); African American GFR (CKD) 78 (>60 ml/min/1.73 sqM); Albumin 3.4 g/dL (3.5-5.0); Albumin/Globulin Ratio 1.2; Alkaline Phosphatase 61 U/L (38-126); Anion Gap 4 mmol/L; Blood Urea Nitrogen 16 mg/dL (7-17); Calcium 9.1 mg/dL (8.4-10.2); Carbon Dioxide 29 mmol/L (22-30); Chloride 103 mmol/L (98-107); Globulin 2.8 g/dL; Glucose 100 mg/dL (74-99); Magnesium 1.8 mg/dL (1.6-2.3); Non-African American GFR(CKD) 68 (>60 ml/min/1.73 sqM); Potassium 3.4 mmol/L (3.5-5.1); Sodium 136 mmol/L (137-145); Total Bilirubin 0.8 mg/dL (0.2-1.3); Total Protein 6.2 g/dL (6.3-8.2)
[2020-04-03] MEDS: ASPIRIN 81 MG PO SCH (11:37)
[2020-04-03] MEDS: amLODIPine 5 MG TAB PO SCH (11:37)
[2020-04-03] MEDS: OXYBUTYNIN 10 MG TAB.ER.24 PO SCH (11:37)
[2020-04-03] MEDS: CYANOCOBALAMIN 500 MCG TAB PO SCH (11:37)
[2020-04-03] MEDS: PYRIDOXINE 50 MG TAB PO SCH (11:37)
[2020-04-03] MEDS: CHLORTHALIDONE 25 MG TAB PO SCH (11:37)
[2020-04-03] MEDS: METOPROLOL TARTRATE 12.5 MG TAB PO SCH ×2 (11:37→20:47)
[2020-04-03] MEDS: ENOXAPARIN 40 MG/0.4 ML SYRINGE SQ SCH (11:38)
[2020-04-03] MEDS ORDERED: POTASSIUM CHLORIDE ER 20 MEQ TAB.ER PO STA (12:42)
[2020-04-03] MEDS: DONEPEZIL 10 MG TAB PO SCH (20:47)
[2020-04-03] MEDS: PRAVASTATIN SODIUM 20 MG TAB PO SCH (20:47)
--- NOTE | 2020-04-03 23:20 | P.PN ---
Progress Note - Text Progress Note Date: 04/03/20 Chief Complaint: weak History of presenting complaint: This is a pleasant 89-year-old patient who follows with Dr. Hedrick. Chronic stable medical conditions include dementia, hypertension, hyperlipidemia, osteoarthritis, hypothyroid, arthritis, urinary incontinence, some right-sided weakness from prior stroke. And a baseline patient lives at [facility]. Does use a walker. 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 Patient has been becoming weak. Decreased appetite. Increasingly forgetful. Patient has chronic facial asymmetry. Daughter doesn't think this is any worse. No trouble swallowing. No fever no chills. No change in vision. No headache. Admitted with-severe myopathy due to hypokalemia, severe hypokalemia. Gait dysfunction weakness. Today-appears a bit more comfortable. Oral intake anywhere from 25-50%. Tired. Potassium being replaced Review of systems: Was done for constitutional, cardiovascular, GI, pulmonary. relevant finding as above Active Medications Amlodipine Besylate (Amlodipine 5 Mg Tab) 5 mg PO DAILY [facility] Last Admin: 04/03/20 11:37 Dose: 5 mg Documented by: Aspirin (Aspirin 81 Mg) 81 mg PO DAILY [facility] Last Admin: 04/03/20 11:37 Dose: 81 mg Documented by: Chlorthalidone (Chlorthalidone 25 Mg Tab) 25 mg PO DAILY [facility] Last Admin: 04/03/20 11:37 Dose: 25 mg Documented by: Cyanocobalamin (Cyanocobalamin 500 Mcg Tab) 1,000 mcg PO DAILY [facility] Last Admin: 04/03/20 11:37 Dose: 1,000 mcg Documented by: Donepezil HCl (Donepezil 10 Mg Tab) 10 mg PO HS [facility] Last Admin: 04/03/20 20:47 Dose: 10 mg Documented by: Enoxaparin Sodium (Enoxaparin 40 Mg/0.4 Ml Syringe) 40 mg SQ DAILY [facility] Last Admin: 04/03/20 11:38 Dose: 40 mg Documented by: Levothyroxine Sodium (Levothyroxine 100 Mcg Tab) 100 mcg PO DAILY@0630 [facility] Last Admin: 04/03/20 05:48 Dose: 100 mcg Documented by: Metoprolol Tartrate (Metoprolol Tartrate 12.5 Mg Tab) 12.5 mg PO BID [facility] Last Admin: 04/03/20 20:47 Dose: 12.5 mg Documented by: Naloxone HCl (Naloxone 0.4 Mg/Ml 1 Ml Vial) 0.2 mg IV Q2M PRN PRN Reason: Opioid Reversal Oxybutynin Chloride (Oxybutynin 10 Mg Tab.Er.24) 10 mg PO DAILY [facility] Last Admin: 04/03/20 11:37 Dose: 10 mg Documented by: Pravastatin Sodium (Pravastatin Sodium 20 Mg Tab) 10 mg PO HS [facility] Last Admin: 04/03/20 20:47 Dose: 10 mg Documented by: Pyridoxine HCl (Pyridoxine 50 Mg Tab) 100 mg PO DAILY [facility] Last Admin: 04/03/20 11:37 Dose: 100 mg Documented by: Physical examination: VITAL SIGNS: 98.1, 83, 16, 128/68, 96% room air GENERAL:, laying in bed, comfortable. EYES: Pupils equal. Conjunctiva normal. NECK: JVD not raised; masses not palpable. HEART: First and second heart sounds are normal; no edema. LUNGS: Respiratory rate normal; clear to auscultation. ABDOMEN: Soft, nontender, liver spleen not palpable, no masses palpable. PSYCH: [Patient knows that she in the hospital. Not sure about the year. Not sure about the reason. L. NEUROLOGICAL: Slight dysarthria. Some weakness on the right side. Some flattening of the right nasolabial fold INVESTIGATIONS, reviewed in the clinical context: Potassium 3.4 TSH 0.110 DT 41.4 Previous testing White count 8.7 hemoglobin 12 potassium 3.4 creatinine 0.9 9 repeat potassium 2.8 Albumin 3.4 EKG tracing personally reviewed by me-normal sinus rhythm Chest x-ray film personally reviewed by me-possible cardiomegaly. Osteoporotic compression fractures reported. 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 We'll cut back the dose of Synthroid to 75 g daily. -Mild protein calorie malnutrition from decreased oral intake Plan: Decrease Synthroid to 75 g a day. Other medications to continue. Pending disposition rehab.
[2020-04-04] MEDS: ASPIRIN 81 MG PO SCH (08:15)
[2020-04-04] MEDS: CHLORTHALIDONE 25 MG TAB PO SCH (08:15)
[2020-04-04] MEDS: METOPROLOL TARTRATE 12.5 MG TAB PO SCH ×2 (08:15→20:40)
[2020-04-04] MEDS: ENOXAPARIN 40 MG/0.4 ML SYRINGE SQ SCH (08:15)
[2020-04-04] MEDS: amLODIPine 5 MG TAB PO SCH (08:15)
[2020-04-04] MEDS: PYRIDOXINE 50 MG TAB PO SCH (08:15)
[2020-04-04] MEDS: CYANOCOBALAMIN 500 MCG TAB PO SCH (08:15)
[2020-04-04] MEDS: OXYBUTYNIN 10 MG TAB.ER.24 PO SCH (08:16)
--- NOTE | 2020-04-04 16:55 | P.PN ---
Progress Note - Text Progress Note Date: 04/04/20 Chief Complaint: weak History of presenting complaint: This is a pleasant 89-year-old patient who follows with Dr. Hedrick. Chronic stable medical conditions include dementia, hypertension, hyperlipidemia, osteoarthritis, hypothyroid, arthritis, urinary incontinence, some right-sided weakness from prior stroke. And a baseline patient lives at [facility]. Does use a walker. 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 Patient has been becoming weak. Decreased appetite. Increasingly forgetful. Patient has chronic facial asymmetry. Daughter doesn't think this is any worse. No trouble swallowing. No fever no chills. No change in vision. No headache. Admitted with-severe myopathy due to hypokalemia, severe hypokalemia. Gait dysfunction weakness. Today-laying in bed. Tired. Awake. Eating better. Review of systems: Was done for constitutional, cardiovascular, GI, pulmonary. relevant finding as above Active Medications Amlodipine Besylate (Amlodipine 5 Mg Tab) 5 mg PO DAILY [facility] Last Admin: 04/04/20 08:15 Dose: 5 mg Documented by: Aspirin (Aspirin 81 Mg) 81 mg PO DAILY [facility] Last Admin: 04/04/20 08:15 Dose: 81 mg Documented by: Chlorthalidone (Chlorthalidone 25 Mg Tab) 25 mg PO DAILY [facility] Last Admin: 04/04/20 08:15 Dose: 25 mg Documented by: Cyanocobalamin (Cyanocobalamin 500 Mcg Tab) 1,000 mcg PO DAILY [facility] Last Admin: 04/04/20 08:15 Dose: 1,000 mcg Documented by: Donepezil HCl (Donepezil 10 Mg Tab) 10 mg PO HS [facility] Last Admin: 04/03/20 20:47 Dose: 10 mg Documented by: Enoxaparin Sodium (Enoxaparin 40 Mg/0.4 Ml Syringe) 40 mg SQ DAILY [facility] Last Admin: 04/04/20 08:15 Dose: 40 mg Documented by: Levothyroxine Sodium (Levothyroxine 75 Mcg Tab) 75 mcg PO DAILY@0630 [facility] Metoprolol Tartrate (Metoprolol Tartrate 12.5 Mg Tab) 12.5 mg PO BID [facility] Last Admin: 04/04/20 08:15 Dose: 12.5 mg Documented by: Naloxone HCl (Naloxone 0.4 Mg/Ml 1 Ml Vial) 0.2 mg IV Q2M PRN PRN Reason: Opioid Reversal Oxybutynin Chloride (Oxybutynin 10 Mg Tab.Er.24) 10 mg PO DAILY [facility] Last Admin: 04/04/20 08:16 Dose: 10 mg Documented by: Pravastatin Sodium (Pravastatin Sodium 20 Mg Tab) 10 mg PO HS [facility] Last Admin: 04/03/20 20:47 Dose: 10 mg Documented by: Pyridoxine HCl (Pyridoxine 50 Mg ) 100 mg PO DAILY [facility] Last Admin: 04/04/20 08:15 Dose: 100 mg Documented by: Physical examination: VITAL SIGNS: 98, 65, 18, 155/78, 92% room air GENERAL:, laying in bed, comfortable. EYES: Pupils equal. Conjunctiva normal. NECK: JVD not raised; masses not palpable. HEART: First and second heart sounds are normal; no edema. LUNGS: Respiratory rate normal; clear to auscultation. ABDOMEN: Soft, nontender, liver spleen not palpable, no masses palpable. PSYCH: [Patient knows that she in the hospital. Not sure about the year. Not sure about the reason. L. NEUROLOGICAL: Slight dysarthria. Some weakness on the right side. Some flattening of the right nasolabial fold INVESTIGATIONS, reviewed in the clinical context: Potassium 3.4 TSH 0.110 DT 41.4 Previous testing White count 8.7 hemoglobin 12 potassium 3.4 creatinine 0.9 9 repeat potassium 2.8 Albumin 3.4 EKG tracing personally reviewed by me-normal sinus rhythm Chest x-ray film personally reviewed by me-possible cardiomegaly. Osteoporotic compression fractures reported. 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 We'll cut back the dose of Synthroid to 75 g daily. -Mild protein calorie malnutrition from decreased oral intake Plan: Continue current medication treatment plan. Pending disposition to rehab.
[2020-04-04] MEDS: DONEPEZIL 10 MG TAB PO SCH (20:40)
[2020-04-04] MEDS: PRAVASTATIN SODIUM 20 MG TAB PO SCH (20:41)
[2020-04-05] MEDS ORDERED: LEVOTHYROXINE 75 MCG TAB PO SCH (06:30)
[2020-04-05] MEDS: CYANOCOBALAMIN 500 MCG TAB PO SCH (08:35)
[2020-04-05] MEDS: ASPIRIN 81 MG PO SCH (08:35)
[2020-04-05] MEDS: OXYBUTYNIN 10 MG TAB.ER.24 PO SCH (08:35)
[2020-04-05] MEDS: METOPROLOL TARTRATE 12.5 MG TAB PO SCH (08:35)
[2020-04-05] MEDS: CHLORTHALIDONE 25 MG TAB PO SCH (08:35)
[2020-04-05] MEDS: PYRIDOXINE 50 MG TAB PO SCH (08:35)
[2020-04-05] MEDS: ENOXAPARIN 40 MG/0.4 ML SYRINGE SQ SCH (08:36)
[2020-04-05] MEDS: amLODIPine 5 MG TAB PO SCH (08:36)
[2020-04-05 09:13] LABS: African American GFR (CKD) 57.8 (60.0-200.0); Anion Gap 7.7 mmol/L (4.00-12.00); Carbon Dioxide 29.3 mmol/L (21.6-31.8); Non-African American GFR(CKD) 49.9 (60.0-200.0); Potassium 3.6 mmol/L (3.5-5.5)
[2020-04-05 11:42] VITALS: BP 122/74; PULSE 68; RESP 17; TEMP 97.6
--- NOTE | 2020-04-05 15:38 | P.DS ---
Providers Date of admission: 04/02/20 11:03 Expected date of discharge: 04/05/20 Attending physician: Toy Kapoor Consults: 04/01/20 11:45 Consult Physician Urgent Consulting Provider: Alberto Dubon Consult Reason/Comments: weakness Do you want consulting provider notified?: Yes Primary care physician: [facility] Course: Chief Complaint: weak History of presenting complaint: This is a pleasant 89-year-old patient who follows with Dr. Hedrick. Chronic stable medical conditions include dementia, hypertension, hyperlipidemia, osteoarthritis, hypothyroid, arthritis, urinary incontinence, some right-sided weakness from prior stroke. And a baseline patient lives at [facility]. Does use a walker. 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 Patient has been becoming weak. Decreased appetite. Increasingly forgetful. Patient has chronic facial asymmetry. Daughter doesn't think this is any worse. No trouble swallowing. No fever no chills. No change in vision. No headache. Admitted with-severe myopathy due to hypokalemia, severe hypokalemia. Gait dysfunction weakness. Electrolytes corrected. Seen by neurology. Computed tomography scan of brain showed chronic changes. Today-doing better. Oral intake much improved. Working with therapy. Consultation: Dr. Dubon from neurology Physical examination: VITAL SIGNS: 97.6, 68, 17, 122/74, 96% room air GENERAL:, laying in bed, comfortable. EYES: Pupils equal. Conjunctiva normal. NECK: JVD not raised; masses not palpable. HEART: First and second heart sounds are normal; no edema. LUNGS: Respiratory rate normal; clear to auscultation. ABDOMEN: Soft, nontender, liver spleen not palpable, no masses palpable. PSYCH: knows that she in the hospital. Not sure about the year. Not sure about the reason. NEUROLOGICAL: Slight dysarthria. Some weakness on the right side. Some flattening of the right nasolabial fold INVESTIGATIONS, reviewed in the clinical context: Potassium 3.6 Previous testing White count 8.7 hemoglobin 12 potassium 3.4 creatinine 0.9 9 repeat potassium 2.8 Albumin 3.4 TSH 0.110 EKG tracing personally reviewed by me-normal sinus rhythm Chest x-ray film personally reviewed by me-possible cardiomegaly. Osteoporotic compression fractures reported. 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 We'll cut back the dose of Synthroid to 75 g daily. -Mild protein calorie malnutrition from decreased oral intake Disposition: [facility] Patient Condition at Discharge: Stable Plan - Discharge Summary Discharge Rx Participant: No New Discharge Prescriptions: New Aspirin 81 mg PO DAILY chew Levothyroxine Sodium [Synthroid] 75 mcg PO DAILY@0630 tab Continue Donepezil [Aricept] 10 mg PO HS Pravastatin Sodium [Pravachol] 10 mg PO HS amLODIPine [Norvasc] 5 mg PO DAILY Oxybutynin ER [Ditropan Xl] 10 mg PO DAILY Chlorthalidone 25 mg PO DAILY #1 tab Ubidecarenone [Co Q-10] 100 mg PO DAILY Cholecalciferol [Vitamin D3 (25 Mcg = 1000 Iu)] 5,000 unit PO DAILY Metoprolol Tartrate [Lopressor] 12.5 mg PO BID Pyridoxine HCl (Vitamin B6) [Vitamin B-6] 100 mg PO DAILY Discontinued Levothyroxine Sodium [Levoxyl] 100 mcg PO DAILY Discharge Medication List Donepezil [Aricept] 10 mg PO HS 12/11/13 [History] Pravastatin Sodium [Pravachol] 10 mg PO HS 12/11/13 [History] amLODIPine [Norvasc] 5 mg PO DAILY 03/22/15 [History] Oxybutynin ER [Ditropan Xl] 10 mg PO DAILY 04/05/17 [History] Chlorthalidone 25 mg PO DAILY #1 tab 09/10/18 [Rx] Cholecalciferol [Vitamin D3 (25 Mcg = 1000 Iu)] 5,000 unit PO DAILY 01/09/19 [History] Metoprolol Tartrate [Lopressor] 12.5 mg PO BID 01/09/19 [History] Ubidecarenone [Co Q-10] 100 mg PO DAILY 01/09/19 [History] Pyridoxine HCl (Vitamin B6) [Vitamin B-6] 100 mg PO DAILY 04/01/20 [History] Aspirin 81 mg PO DAILY chew 04/05/20 [Rx] Levothyroxine Sodium [Synthroid] 75 mcg PO DAILY@0630 tab 04/05/20 [Rx] Follow up Appointment(s)/Referral(s): Moe Hedrick MD [Primary Care Provider] - 1-2 days Activity/Diet/Wound Care/Special Instructions: flu vaccine ordered on Aug prior to discharge
--- NOTE | 2020-04-05 17:06 | P.PN ---
Subjective Progress Note Date: 04/05/20 Patient was seen at bedside and that she stated that she's doing well. She denies of any new weakness, numbness or any further neurological deficits. Objective - Vital Signs Vital signs: Vital Signs Temp 97.6 F 04/05/20 11:42 Pulse 68 04/05/20 11:42 Resp 17 04/05/20 11:42 BP 122/74 04/05/20 11:42 Pulse Ox 96 04/05/20 11:42 Intake & Output 04/04/20 04/05/20 04/05/20 18:59 06:59 18:59 Intake Total 1180 Balance 1180 Intake: Oral 1180 Other: Voiding Method Incontinent Incontinent Incontinent # Voids 1 2 4 - Exam GENERAL: The patient is lying in bed and is not in acute distress. CHEST: The heart rate is regular rate rhythm. No murmurs to auscultation. . LUNG: Clear to auscultation bilaterally no wheezing noted throughout. Not labored breathing. MUSCULOSKELETAL: Has significant arthritis and it seemed that her arthritis are worse on the right hand and foot. Patient as a had the pain to touch on the right hand on multiple times when assessing. NEUROLOGICAL: Higher mental function: The patient is awake, alert, oriented to self and place but not time. She'll she said the year was 1899 that on repeated questioning she did not respond to the question. Patient is following simple commands. No aphasia and no neglect. Cranial nerves: The pupils are round, equal and reactive to light and accommodation. Visual haro are full to confrontation throughout. Extraocular movement is intact no nystagmus is noted. Facial sensation is normal to touch throughout. Has right lower facial droop. Hearing is mildly decreased to hand rub bilaterally. Tongue is midline and moved [id number] without any difficulty There is no tongue bite jered.. No dysarthria is noted. Shoulder shrug is normal bilaterally. Motor: Gait is defered.. The strength is limited but was able to left upper and lower extremities above gravity and there is no drift noted. Was limited because of the patient pain. Patient has flexion of the right fourth fifth and partial third digits from significant arthritis but is able to extend that her digits upon asking. Normal tone and bulk. Sensation: Sensation is normal to touch throughout. Reflexes (right/left): 1+ throughout. Toes are upgoing at baseline bilaterally. - Labs CBC & Chem 7: 04/01/20 10:14 04/05/20 04:43 Labs: Abnormal Lab Results - Last 24 Hours (Table) 04/02/20 04/05/20 Range/Units 05:58 04:43 Est GFR (CKD-EPI)AfAm 57.8 L (60.0-200.0) Est GFR (CKD-EPI)NonAf 49.9 L (60.0-200.0) BUN/Creatinine Ratio 26.00 H (12.00-20.00) Ratio RBC Folate 942 H (280 - 791) ng/mL Assessment and Plan Assessment: This is an 89-year-old woman with multiple medical problems that presented emergency department on 04/01/2024 falls for the last 2 days generalized weakness and increased urination and thirst. Patient has dementia and the there are no family members at bedside on able to reach them via phone. 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 As a result will place the patient on at thousand micrograms daily. * Patient has no loss of consciousness and no seizure-like activity therefore EEG is not warranted at this time. * Because of the patient's old the ischemic stroke I'll place her on aspirin 81 mg and continue home Prvastatin 10mg daily. Patient daughter is in agreement to this as well as the patient. 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 Per the patient daughter she wants to hold off anti-epileptic drugs which I'm in agreement unless the patient has any seizure-like activity. * Regarding the patient history of dementia Continue her home medication of Aricept 10 mg daily. * She is on home vitamin B6 100 mg daily. * PT and OT are on board. * The plan was discussed with the patient as well as daughter and they're in agreement. * Patient needs to follow-up with neurologist as outpatient. * No further neurological work-up is needed. Alberto Dubon M.D. Neuro-hospitalist Time with Patient: Less than 30
== END 2020-04-05 16:50 | DRG 641 ==
LOC: EC 09:26 → 6NMEDSUR 11:45 → OBSVTOIN 04-02 11:03
PROVIDERS: ADMIT Hospitalist; ATTEND Hospitalist
DX: E87.6 Hypokalemia (principal); E44.1 Mild protein-calorie malnutrition; I69.351 Hemiplegia and hemiparesis following cerebral infarction affecting right dominant side; E78.5 Hyperlipidemia, unspecified; E03.9 Hypothyroidism, unspecified; I10 Essential (primary) hypertension; J45.909 Unspecified asthma, uncomplicated; G30.1 Alzheimer's disease with late onset; F02.80 Dementia in other diseases classified elsewhere, unspecified severity, without behavioral disturbance, psychotic disturbance, mood disturbance, and anxiety; R32 Unspecified urinary incontinence; M19.91 Primary osteoarthritis, unspecified site; D32.9 Benign neoplasm of meninges, unspecified; M85.80 Other specified disorders of bone density and structure, unspecified site; Z20.828 Contact with and (suspected) exposure to other viral communicable diseases; E05.90 Thyrotoxicosis, unspecified without thyrotoxic crisis or storm; G72.89 Other specified myopathies; I69.311 Memory deficit following cerebral infarction; Z79.890 Hormone replacement therapy; Z88.8 Allergy status to other drugs, medicaments and biological substances; Z79.899 Other long term (current) drug therapy; Z90.710 Acquired absence of both cervix and uterus; Z87.891 Personal history of nicotine dependence; Z90.49 Acquired absence of other specified parts of digestive tract; Z86.718 Personal history of other venous thrombosis and embolism; Z87.01 Personal history of pneumonia (recurrent); Z86.19 Personal history of other infectious and parasitic diseases; Z98.890 Other specified postprocedural states; Z82.49 Family history of ischemic heart disease and other diseases of the circulatory system
CPT/HCPCS: 36415; 70450; 71046; 80048; 80053; 81001; 82607; 82747; 83605; 83735; 84439; 84443; 84484; 85025; 85610; 85730; 93005; 96360; 96361; 99285